=== PATIENT | female | born 1975 ===

== ENCOUNTER → 2022-02-04 13:30 | Outpatient (BNVA) | payer OTHER, SELFPAY | PROVIDERS: PCP Physician Assistant; Referring Provider Physician Assistant; Visit Provider Physician Assistant Surgical | DX: Z13.89 Encounter for screening for other disorder (principal) ==

== ENCOUNTER → 2022-03-03 10:37 | Outpatient (BNVA) | payer OTHER, SELFPAY | PROVIDERS: PCP Physician Assistant; Visit Provider Physician Assistant Surgical | DX: E66.9 Obesity, unspecified (principal); Z68.36 Body mass index [BMI] 36.0-36.9, adult | CPT/HCPCS: 99202 ==

== ENCOUNTER 2022-03-04 10:24 | Outpatient (REF) | payer OTHER, SELFPAY ==
--- NOTE | ~2022-03-04 | XR_ITS ---
EXAMINATION: XR CHEST CLINICAL INFORMATION: Obesity unspecified. COMPARISON: None TECHNIQUE: 2 views of the chest were obtained. FINDINGS: No acute finding in the chest. The lung coleman are grossly clear. Findings may be consistent with a hiatal hernia. Retrocardiac density with some lucency. The cardiac silhouette is not enlarged. The hilar structures show no suspicious increase. XR/XR chest 2V IMPRESSION: No acute finding. Findings do suggest probable hiatal hernia. Consider barium swallow for further evaluation.
--- NOTE | 2022-03-04 10:34 | ECG_ITS ---
Test Reason : OBESITY Blood Pressure : / mmHG Vent. Rate : 061 BPM Atrial Rate : 061 BPM P-R Int : 144 ms QRS Dur : 112 ms QT Int : 440 ms P-R-T Axes : 045 -32 019 degrees QTc Int : 442 ms Normal sinus rhythm Left axis deviation Incomplete right bundle branch block Abnormal ECG No previous ECGs available Referred By: Singh Monroy Electronically Signed By:Efren Humphreys
[2022-03-04 10:51] LABS: MANUAL DIFF FLAG NO
[2022-03-04 12:14] LABS: Basophils Absolute Auto 0.1 X10*3/uL (0.0-0.2); Basophils Percent Auto 0.9 % (0-2); Eosinophils Absolute Auto 0.2 X10*3/uL (0.0-0.4); Hematocrit 40.5 % (37.0-47.0); Hemoglobin 12.9 g/dl (12.0-16.0); Imm Gran Abs Auto 0.05 X10*3/uL (0.00-0.03); Imm Gran Pct Auto 0.6 % (0.0-0.4); Lymphocytes Absolute Auto 2.5 X10*3/uL (1.2-4.9); Lymphocytes Percent Auto 31.3 % (20-40); Mean Corpuscular HGB Conc 31.9 g/dl (31.0-35.0); Mean Corpuscular Hemoglobin 28.5 pg (27.0-33.0); Mean Corpuscular Volume 89.6 fL (80.0-98.0); Mean Platelet Volume 10.2 fL (9.4-12.3); Monocytes Absolute Auto 0.5 X10*3/uL (0.1-1.2); Monocytes Percent Auto 6.8 % (2-11); Neutrophils Absolute Auto 4.6 x10*3/uL (2.0-8.3); Neutrophils Percent Auto 58.4 % (45-73); Platelet Count 294 X10*3/uL (160-400); Red Blood Count 4.52 X10*6/uL (4.20-5.50); Red Cell Distribution Width 13.2 % (11.0-16.0); White Blood Count 7.8 X10*3/uL (4.8-10.8)
[2022-03-04 12:56] LABS: Alanine Aminotransferase 31 U/L (0-31); Albumin Level 4.4 g/dL (3.5-5.0); Alkaline Phosphatase 72 U/L (39-117); Anion Gap 13 (12-20); Aspartate Amino Transferase 26 U/L (5-31); Bilirubin Total 0.4 mg/dL (0.0-1.0); Blood Urea Nitrogen 15 mg/dL (9-16); Calcium 9.3 mg/dL (8.4-10.2); Carbon Dioxide 25 mmol/L (22-29); Chloride 106 mmol/L (96-108); Cholesterol 229 mg/dL; Estimated Glomerular Filt Rate > 60; Glucose Random 90 mg/dL (60-115); HDL Cholesterol 51 mg/dL; Iron 56 mcg/dL (30-160); LDL Cholesterol Calculated 147 mg/dl; Percent Iron Saturation 15 % (15-50); Potassium 4.1 mmol/L (3.3-5.1); Sodium 140 mmol/L (135-145); Total Iron Binding Capacity 379 mcg/dL (228-428); Total Protein 7.5 g/dL (6.5-8.0); Triglycerides 155 mg/dL; Unsaturated Iron Binding 323 ug/dL
[2022-03-04 13:28] LABS: Ferritin 30 ng/mL (10-250); TSH reflex Free T4 0.76 uIU/mL (0.32-4.0); Vitamin D 25-OH Total 29.7 ng/mL (>30)
[2022-03-04 13:54] LABS: Folate > 20.0 ng/mL (> or = 4.0); Vitamin B12 1276 pg/mL (200-900)
[2022-03-04 14:03] LABS: Estimated Average Glucose 126 mg/dL; Insulin 7 uU/mL (2-29)
[2022-03-05 15:02] LABS: Calcium (PTHI) 9.6 mg/dL (8.6-10.2); PTHI 96 pg/mL (16-77)
[2022-03-08 11:02] LABS: Vitamin B1 19 nmol/L (8-30)
[2022-03-08 18:11] LABS: Vitamin A 51 mcg/dL (38-98)
[2022-03-10 15:51] LABS: Zinc 78 mcg/dL (60-130)
== END 2022-03-04 10:25 | disposition home or self-care (01) ==
LOC: HO.LAB 10:24
PROVIDERS: PCP Physician Assistant; Visit Provider Physician Assistant Surgical
DX: Z01.818 Encounter for other preprocedural examination (principal); E66.9 Obesity, unspecified
CPT/HCPCS: 36415; 71046; 80053; 80061; 82306; 82607; 82728; 82746; 83036; 83525; 83540; 83970; 84425; 84443; 84590; 84630; 85025; 86140; 93005

== ENCOUNTER → 2022-03-16 10:53 | Outpatient (BNVA) | payer OTHER, SELFPAY | PROVIDERS: PCP Physician Assistant; Visit Provider Physician Assistant Surgical | DX: E66.9 Obesity, unspecified (principal); Z68.34 Body mass index [BMI] 34.0-34.9, adult | CPT/HCPCS: 99212 ==

== ENCOUNTER → 2022-03-23 11:04 | Outpatient (BNVA) | payer OTHER, SELFPAY | PROVIDERS: PCP Physician Assistant; Visit Provider Dietitian, Registered | DX: E66.9 Obesity, unspecified (principal); Z71.3 Dietary counseling and surveillance | CPT/HCPCS: 97802 ==

== ENCOUNTER → 2022-03-25 09:15 | Outpatient (BNVA) | payer OTHER, SELFPAY | PROVIDERS: PCP Physician Assistant; Visit Provider Physician Assistant Surgical | DX: Z11.0 Encounter for screening for intestinal infectious diseases (principal) | CPT/HCPCS: 99211 ==

== ENCOUNTER → 2022-03-25 14:44 | Outpatient (REF) | payer OTHER, SELFPAY ==
--- NOTE | 2022-03-25 14:55 | CA_ITS ---
Transthoracic Echocardiogram Patient (Last, First, Middle): Román Mackey M Gender: Female Date of : 1975 Age: 46 Procedure Date: 03/25/2022 Procedure Type: Transthoracic Echocardiogram Location: OP Height: 157.48 cm Weight: 85.73 kg BSA: 1.87 m2 Heart Rate: bpm BP: 130 / 70 mmHg Financial Accountant: GINGER Domingo MD: Singh BENEDICT Refrigeration Plant Operator: Shilo Wolf MD Symptoms: I45.10 - Unspecified right bundle-branch block Study Quality: Adequate ECG Rhythm: Sinus Conclusions: - Essentially normal study Findings Left Ventricle Normal left ventricular size, thickness, and systolic function. The visually estimated ejection fraction is between 60-65%. Spectral Doppler is indicative of a normal filling pattern. Right Ventricle Normal right ventricular cavity size and systolic function. Atria Both atria are normal in size. There is lipomatous hypertrophy of the interatrial septum. There is no evidence of interatrial shunt. Aortic Valve The aortic valve structure and function is likely normal. There is no aortic valve stenosis. There is no aortic valve regurgitation. Mitral Valve Normal mitral valve structure and function. There is trace mitral valve regurgitation. There is no mitral valve stenosis. Pulmonic Valve The pulmonic valve was not well visualized. Tricuspid Valve Likely normal tricuspid valve structure and function. There is trace tricuspid valve regurgitation. The right ventricular systolic pressure is normal. The right ventricular systolic pressure is 21 mmHg. Normal right atrial pressure. There is no evidence of pulmonary hypertension. Great Vessels All visible segments of the aorta are normal in size. The pulmonary artery was not well visualized. Venous The inferior vena cava is normal in size and collapses greater than 50% with inspiration. Pericardium/Pleural There is no evidence of pericardial effusion. Prior Study Comparison No prior study available for comparison. Measurements 2D Linear Measurements IVSd: 0.92 0.6-0.9/0.6-1.0 cm LVIDd: 4.23 3.9-5.3/4.2-5.9 cm LVIDd Index: 2.26 2.4-3.2/2.2-3.1 cm/m2 LVIDs: 1.99 2.0-3.6 cm LVPWd: 0.87 0.7-1.1 cm LA Diam: 2.70 2.7-3.8/3.0-4.0 cm LAIDs Index: 1.44 1.5-2.3 cm/m2 LV Mass: 148.41 67-162/88-224 g LV Mass Index: 79.36 43-95/49-115 g/m2 LVOT Diam: 2.00 3.0+(-)1.3 cm 2D Systolic Function EF 4C: 61.20 >55% EF 2C: 54.80 >55% EF BiP: 58.10 >55% Mitral Valve MV Pk E: 0.86 MV PK A: 0.73 MV Decel Time: 261.00 E/A: 1.20 E'Lateral: 10.70 E'Medial: 7.07 E/E' Med: 12.20 E/E' Lat: 8.00 PHT: 77.00 MVA PHT: 2.86 Decel Carbon: 3.29 Aortic Valve AoV Pk Javad: 1.28 AoV Mn Javad: 0.89 AoV VTI: 0.32 AoV Pk Grad: 7.00 Aov Mn Grad: 4.00 SESAR Cont.VTI: 2.19 LVOT LVOT Pk Javad: 0.88 LVOT Mn Javad: 0.62 LVOT VTI: 0.22 LVOT Pk Grad: 3.00 LVOT Mn Grad: 2.00 LVOT Diam: 2.00 LVOT Area: 3.14 Diastolic Function MV Pk E: 0.86 MV Pk A: 0.73 E/A: 1.20 E'Medial: 7.07 E/E' Med: 12.20 E' Laterial: 10.70 E/E' Lat: 8.00 Right Ventricle TAPSE (mm): 16.30 TVS' Javad: 9.90 Tricuspid Valve TR Pk Javad: 2.13 TR Pk Grad: 18.00 RA Press: 3.00 RVSP: 21.00 Great Vessels Aorta Sinus of Valsalva: 3.22 2.0-3.[address] Ridge: 2.74 1.7-3.4 cm Ao Asc: 3.10 2.1-3.4 cm Ao Arch: 2.90 Updated in Other Vendor System with Status of Final Shilo Wolf MD electronically signed on 03/25/2022 4:57:28 PM with status of Final
[2022-03-27 15:29] LABS: H Pylori Breath Test Negative (Negative)
== END ==
LOC: HO.CARD 14:44
PROVIDERS: Physician Assistant Surgical; Visit Provider Surgery
DX: E66.9 Obesity, unspecified (principal); I45.10 Unspecified right bundle-branch block; Z11.0 Encounter for screening for intestinal infectious diseases
CPT/HCPCS: 36415; 83013; 93306

== ENCOUNTER → 2022-04-03 08:19 | Outpatient (REF) | payer OTHER, SELFPAY ==
--- NOTE | ~2022-04-03 | NM_ITS ---
Exercise Myocardial perfusion study Indication: Abnormal EKG to evaluate for myocardial ischemia Technique: The patient was brought in for an exercise perfusion study on 04/03/2022. Patient performed exercise as per Miguel protocol and was injected 30 mCi of sestamibi was given intravenously one target HR was achieved. Images were obtained using the SPECT gamma camera interlaced with the gating device. Images were obtained in supine position. Resting perfusion study was performed on 04/07/2022.. Patient was administered 30 mCi of sestamibi intravenously at rest. Images were then obtained in supine position. Images obtained with and without CT attenuation. Total DLP 98 mGy-cm. Images were processed with the software and compared side to side in short axis, horizontal long axis and vertical long axis views. Findings: The stress perfusion study showed non attenuated images show normal uptake of radiotracer in all segments of LV myocardium. Attenuation corrected images show minimally reduced uptake in the apex of the LV myocardium.. The gated study shows normal LV systolic function with calculated LVEF of 71%. LV cavity is normal in size. The gated study shows normal systolic wall thickening and contraction of all segments. There is no transient ischemic dilation. Resting study shows non attenuated images show normal uptake of radiotracer in all segments of LV myocardium. Gating at rest reveals normal systolic wall motion with ejection fraction at 59%. The findings are consistent with normal myocardial perfusion. NM/NM cardiolite stress test Impression: 1. Normal myocardial perfusion 2. Gated LVEF is 71% 3. Transient ischemic dilatation not present Stress EKG is negative for ischemia
--- NOTE | 2022-04-03 08:24 | CA_ITS ---
Acquisition Time: 2022-04-03 08:40:11 Total Exercise Time: 00:06:16 Test Indications: Abnormal ECG Medications: OMEPRAZOLE Protocol: JUDIE Max HR: 157 BPM 91% of Pred: 172 BPM Max BP: 142/086 mmHG Max Work Load: 7.3 METS Exercise stress test with exercise 6 min 16 sec of Judie protocol, achieving 935 MPHR, 7.3 METs, with mild sob, no chest discomfort, with isolated PACs and PVCs, with normotensive response to exercise, without EKG chagnes meeting criteria for ischemia. Nuclear images pending Test reviewed with Dr Wolf Referred By: Singh Monroy Overread By: MICHELET REEDER
== END ==
LOC: HO.CARD 08:19
PROVIDERS: PCP Physician Assistant; Visit Provider Surgery
DX: Z01.818 Encounter for other preprocedural examination (principal); I45.10 Unspecified right bundle-branch block; R06.02 Shortness of breath; R94.31 Abnormal electrocardiogram [ECG] [EKG]
CPT/HCPCS: 78452; 93017; A9500

== ENCOUNTER → 2022-04-07 13:58 | Outpatient (BNVA) | payer OTHER, SELFPAY | PROVIDERS: PCP Physician Assistant; Referring Provider Physician Assistant Surgical; Visit Provider Dietitian, Registered | DX: E66.9 Obesity, unspecified (principal) | CPT/HCPCS: 97803 ==

== ENCOUNTER 2022-04-20 08:36 | Outpatient (REF) | payer OTHER, SELFPAY ==
--- NOTE | ~2022-04-20 | FL_ITS ---
EXAMINATION: XR FLUOROSCOPY UPPER GI WITH AIR CLINICAL INFORMATION: Obesity. COMPARISON: None TECHNIQUE: Upper GI was performed using thin and thick barium and effervescent granules. FINDINGS: There is a moderate size hiatal hernia. There is mild gastroesophageal reflux. The stomach and duodenum are otherwise normal-appearing. No fold thickening, mass, ulcer or stricture is seen. FLUOROSCOPY TIME: 0.8 minutes DOSE AREA PRODUCT: 9.2 uGy-cm2 FLUOROSCOPIC IMAGES: 25 FL/FL upper GI w air IMPRESSION: Moderate size hiatal hernia and mild gastroesophageal reflux.
--- NOTE | ~2022-04-20 | US_ITS ---
EXAMINATION: US COMPLETE ABDOMEN WITH LIVER ELASTOGRAPHY CLINICAL INFORMATION: Obesity COMPARISON: None. TECHNIQUE: Real-time imaging of the abdominal viscera. Noninvasive ultrasound liver fibrosis assessment is performed using Kiki ElastPQ point quantification shear wave elastography (2D-SWE) with a C5-2 MHz transducer. Multiple elastography samples are obtained. FINDINGS: PANCREAS: Not well visualized due to bowel gas ABDOMINAL AORTA: The proximal, middle, and distal aortic segments are normal in caliber. INFERIOR VENA CAVA: Visualized portions are normal. LIVER: Liver echotexture is increased. The liver is normal in size and contour.. No focal lesion or intrahepatic biliary duct dilatation. The right lobe measures 16.4 cm in length. The left lobe measures 14.2 cm in length. Portal flow is normal/hepatopedal Shear wave liver elastography median stiffness is 1.09 m/s (reference: normal median stiffness is 1.3 m/s or less). IQR/median stiffness to assess sampling precision is 0.06 (reference: good quality data set is IQR/median stiffness of 0.15 or less). GALLBLADDER: Surgically removed COMMON BILE DUCT: Normal in caliber measuring 0.9 cm in diameter. RIGHT KIDNEY: Normal. No hydronephrosis. No renal calculi or focal parenchymal lesions. The kidney measures 11.3 cm in maximum dimension. LEFT KIDNEY: Normal. No hydronephrosis. No renal calculi or focal parenchymal lesions. The kidney measures 12.8 cm in maximum dimension. SPLEEN: Normal. The spleen measures 10 cm in maximum dimension. FREE FLUID: None. US/US abdomen comp w elastography IMPRESSION: 1. Impression: Echogenic liver probably representing fatty infiltration. Limited visualization of the pancreas. 2. Liver elastography: Adequate liver sampling. Normal liver stiffness. REFERENCE: Society of Radiologists in Ultrasound Liver Stiffness Thresholds (2020): LIVER STIFFNESS THRESHOLDS: *Liver Stiffness equal or less than 1.3 m/s: High probability of being normal. *Liver Stiffness less than 1.7 m/s: In the absence of other known clinical signs, rules out compensated advanced chronic liver disease. *Liver Stiffness 1.7-2.1 m/s: Suggestive of compensated advanced chronic liver disease but need further test for confirmation. *Liver Stiffness over 2.1 m/s: Rules in compensated advanced chronic liver disease. *Liver Stiffness over 2.4 m/s: Suggestive of clinically significant portal hypertension. QUALITY OF DATA SET: *IQR/Median value equal or less than 0.15 implies a quality data set. *IQR/Median value over 0.15 implies a poor quality data set. SIGNIFICANT CHANGE FROM PRIOR EXAM: Significant change if liver stiffness measurement is 10% or greater from prior exam. OTHER CONSIDERATIONS: The stage of liver fibrosis may be overestimated in the setting of acute hepatitis, liver inflammation, elevated liver function tests, hepatic vascular congestion, obstructive cholestasis, non-fasting state, and infiltrative diseases such as amyloidosis and lymphoma. In some patients with NAFLD, the liver stiffness thresholds for compensated advanced chronic liver disease may be lower. In causes other than viral hepatitis and NAFLD, liver stiffness thresholds are not well established.
== END 2022-04-20 08:37 | disposition home or self-care (01) ==
LOC: HO.US 08:36
PROVIDERS: Visit Provider Physician Assistant Surgical
DX: Z01.818 Encounter for other preprocedural examination (principal); E66.9 Obesity, unspecified; K21.9 Gastro-esophageal reflux disease without esophagitis
CPT/HCPCS: 74246; 76705; 76981

== ENCOUNTER 2022-04-21 09:42 | Outpatient (REF) | payer OTHER, SELFPAY | END 2022-04-21 09:43 | disposition home or self-care (01) | LOC: HO.LAB 09:42 | PROVIDERS: Visit Provider Surgery | DX: E11.9 Type 2 diabetes mellitus without complications (principal); E66.9 Obesity, unspecified; G47.33 Obstructive sleep apnea (adult) (pediatric); I45.10 Unspecified right bundle-branch block; E78.5 Hyperlipidemia, unspecified; Z68.34 Body mass index [BMI] 34.0-34.9, adult; Z90.49 Acquired absence of other specified parts of digestive tract; Z99.89 Dependence on other enabling machines and devices | CPT/HCPCS: 86900; 86901; 99202 ==

== ENCOUNTER → 2022-04-28 08:44 | Outpatient (BNVA) | payer OTHER, SELFPAY | PROVIDERS: PCP Physician Assistant; Visit Provider Surgery | DX: E66.9 Obesity, unspecified (principal); Z68.34 Body mass index [BMI] 34.0-34.9, adult; E11.9 Type 2 diabetes mellitus without complications; K44.9 Diaphragmatic hernia without obstruction or gangrene; K21.9 Gastro-esophageal reflux disease without esophagitis; E78.5 Hyperlipidemia, unspecified; I45.10 Unspecified right bundle-branch block; G47.33 Obstructive sleep apnea (adult) (pediatric); Z99.89 Dependence on other enabling machines and devices | CPT/HCPCS: 99212 ==

== ENCOUNTER → 2022-05-04 14:04 | Outpatient (BNVA) | payer OTHER, SELFPAY | PROVIDERS: PCP Physician Assistant; Referring Provider Surgery; Visit Provider Dietitian, Registered | DX: E66.9 Obesity, unspecified (principal); Z68.34 Body mass index [BMI] 34.0-34.9, adult; Z71.3 Dietary counseling and surveillance | CPT/HCPCS: 97803 ==

== ENCOUNTER 2022-05-19 09:44 | Outpatient (REF) | payer OTHER, SELFPAY | END 2022-05-19 09:45 | disposition home or self-care (01) | LOC: HO.LAB 09:44 | PROVIDERS: Visit Provider Surgery | DX: Z13.89 Encounter for screening for other disorder (principal) ==

== ENCOUNTER 2022-05-26 06:00 | Inpatient (IN) | payer OTHER, SELFPAY ==
[2022-05-11 14:25] VITALS: BMI 34.0
[2022-05-19 10:03] LABS: MANUAL DIFF FLAG NO
[2022-05-19 10:48] LABS: Estimated Average Glucose 117 mg/dL; Hemoglobin A1c % 5.7 %
[2022-05-19 10:49] LABS: Basophils Absolute Auto 0.1 X10*3/uL (0.0-0.2); Basophils Percent Auto 0.7 % (0-2); Eosinophils Absolute Auto 0.1 X10*3/uL (0.0-0.4); Eosinophils Percent Auto 1.6 % (0-4); Hematocrit 40.6 % (37.0-47.0); Hemoglobin 12.9 g/dl (12.0-16.0); Imm Gran Abs Auto 0.04 X10*3/uL (0.00-0.03); Imm Gran Pct Auto 0.5 % (0.0-0.4); Lymphocytes Absolute Auto 2.1 X10*3/uL (1.2-4.9); Lymphocytes Percent Auto 26.3 % (20-40); Mean Corpuscular HGB Conc 31.8 g/dl (31.0-35.0); Mean Corpuscular Hemoglobin 27.9 pg (27.0-33.0); Mean Corpuscular Volume 87.7 fL (80.0-98.0); Mean Platelet Volume 9.9 fL (9.4-12.3); Monocytes Absolute Auto 0.6 X10*3/uL (0.1-1.2); Neutrophils Absolute Auto 5.2 x10*3/uL (2.0-8.3); Neutrophils Percent Auto 63.9 % (45-73); Platelet Count 336 X10*3/uL (160-400); Red Blood Count 4.63 X10*6/uL (4.20-5.50); Red Cell Distribution Width 13.4 % (11.0-16.0); White Blood Count 8.1 X10*3/uL (4.8-10.8)
[2022-05-19 10:55] LABS: Prothrombin Time 11.8 SEC (10.0-13.1)
[2022-05-19 10:57] LABS: Partial Thromboplastin Time 39.6 SEC (26.0-36.4)
[2022-05-19 11:21] LABS: Alanine Aminotransferase 18 U/L (0-31); Albumin Level 4.5 g/dL (3.5-5.0); Alkaline Phosphatase 76 U/L (39-117); Anion Gap 18 (12-20); Aspartate Amino Transferase 17 U/L (5-31); Bilirubin Total 0.3 mg/dL (0.0-1.0); Blood Urea Nitrogen 10 mg/dL (9-16); C Reactive Protein 7.65 mg/dL (< or = 0.50); Calcium 9.6 mg/dL (8.4-10.2); Carbon Dioxide 25 mmol/L (22-29); Chloride 104 mmol/L (96-108); Cholesterol 177 mg/dL; Creatinine Clr Calc Pharmacy 92.4; Estimated Glomerular Filt Rate > 60; Glucose Random 107 mg/dL (60-115); HDL Cholesterol 40 mg/dL; LDL Cholesterol Calculated 116 mg/dl; Potassium 4.8 mmol/L (3.3-5.1); Sodium 142 mmol/L (135-145); Total Protein 7.8 g/dL (6.5-8.0); Triglycerides 108 mg/dL
[2022-05-19 11:46] LABS: Insulin 13 uU/mL (2-29); TSH reflex Free T4 0.58 uIU/mL (0.32-4.0)
--- NOTE | 2022-05-25 09:40 | P.CONAN_ITS ---
Documented by User: Mirela Alberto NP 05/25/22 09:42 HPI - Anesthesia Eval Consult details Narrative: 46yo F for Gastrectomy Sleeve, Possible diaphragmatic hernia,possible ventral hernia,possible open PMFSH Active Problems Active Problems: All Active Problems (Updated 05/11/22 @ 14:22 by Ayah Gibbons, RN) Diabetes (Acute) Obesity (BMI 30-39.9) (Acute) Fibromyalgia (Acute) Incomplete right bundle branch block (Acute) BMI 36.0-36.9,adult (Acute) GERD (gastroesophageal reflux disease) (Acute) Prediabetes (Acute) Hyperlipidemia (Acute) Obstructive sleep apnea on CPAP (Acute) Hiatal hernia (Acute) Past Medical History Medical History (Updated 05/11/22 @ 14:22 by Ayah Gibbons RN) DM type 2 (diabetes mellitus, type 2) Fibromyalgia ULICES on CPAP Family History Family History Mother Breast cancer Father Arthritis Diabetes Daughter Obese Scoliosis Surgical History Surgical History Hx of cholecystectomy Social History Social History Are you a primary health care facility administrator to a significant other at home: No Do you presently have visiting nurse or other home services: No Alcohol intake: former Patient Tobacco Use Status: Former Tobacco user Quit Date: 6 months ago Tobacco use type: Cigarette Second Hand Smoke Exposure: Yes Use of substances other than those prescribed or required for medical reasons: No Have you been hit, kicked, punched, or otherwise hurt by someone within the past year? If so, by whom?: No Are you DNR?: No Advance Directives: No Advance Directives Information Provided: No Advance Directives on File: No Recently lost weight without trying: No How much weight loss: 14-23 pounds Nutrition Risks: No Nutritional Risk Patient : No FDLMP: 04/14/22 : No Poor oral hygiene: No (crowns) Meds Allergies Allergy/AdvReac Type Severity Reaction Status Date / Time No Known Allergies Allergy Unverified 04/28/22 08:57 Home Medications Medication Instructions Recorded Confirmed Last Taken Type multivitamin with minerals-folic 1 tab PO DAILY 02/05/22 05/11/22 05/25/22 History acid 0.4 mg tablet Exam Exam Date and Time: May 25, 2022 0940 Height,Weight and Vital Signs: Height 5 ft 2 in Weight 84.368 kg Pertinent Lab Results Pertinent Lab Results: Laboratory Tests 05/19/22 05/19/22 05/19/22 10:00 10:01 10:01 WBC 8.1 RBC 4.63 Hgb 12.9 Hct 40.6 MCV 87.7 MCH 27.9 MCHC 31.8 RDW 13.4 Plt Count 336 MPV 9.9 Immature Gran % (Auto) 0.5 H Neut % (Auto) 63.9 Lymph % (Auto) 26.3 [place] % (Auto) 7.0 Eos % (Auto) 1.6 Baso % (Auto) 0.7 Lymph # (Auto) 2.1 [place] # (Auto) 0.6 Eos # (Auto) 0.1 Baso # (Auto) 0.1 Abs Immat Gran (auto) 0.04 H Absolute Neuts (auto) 5.2 Absolute Nucleated RBC 0.000 Nucleated RBC % (auto) 0.0 PT 11.8 INR 1.0 APTT 39.6 H Sodium Potassium Chloride Carbon Dioxide Anion Gap BUN Creatinine Estim Creat Clear Calc Estimated GFR Random Glucose Estimat Average Glucose Hemoglobin A1c % Insulin Level Calcium Total Bilirubin AST ALT Alkaline Phosphatase C-Reactive Protein Total Protein Albumin Triglycerides Cholesterol LDL Cholesterol, Calc HDL Cholesterol TSH Blood Type A Negative Antibody Screen NEGATIVE 05/19/22 05/19/22 10:01 10:01 WBC RBC Hgb Hct MCV MCH MCHC RDW Plt Count MPV Immature Gran % (Auto) Neut % (Auto) Lymph % (Auto) [place] % (Auto) Eos % (Auto) Baso % (Auto) Lymph # (Auto) [place] # (Auto) Eos # (Auto) Baso # (Auto) Abs Immat Gran (auto) Absolute Neuts (auto) Absolute Nucleated RBC Nucleated RBC % (auto) PT INR APTT Sodium 142 Potassium 4.8 Chloride 104 Carbon Dioxide 25 Anion Gap 18 BUN 10 Creatinine 0.75 Estim Creat Clear Calc 92.4 Estimated GFR > 60 Random Glucose 107 Estimat Average Glucose 117 Hemoglobin A1c % 5.7 Insulin Level 13 Calcium 9.6 Total Bilirubin 0.3 AST 17 ALT 18 Alkaline Phosphatase 76 C-Reactive Protein 7.65 H Total Protein 7.8 Albumin 4.5 Triglycerides 108 Cholesterol 177 D LDL Cholesterol, Calc 116 HDL Cholesterol 40 D TSH 0.58 Blood Type Antibody Screen Narrative Narrative: EKG 02/2022 Vent. Rate : 061 BPM ? ? Atrial Rate : 061 BPM ?? P-R Int : 144 ms? QRS Dur : 112 ms ? ? QT Int : 440 ms ? ? ? P-R-T Axes : 045 -32 019 degrees ?? QTc Int : 442 ms ? Normal sinus rhythm Left axis deviation Incomplete right bundle branch block Abnormal ECG No previous ECGs available ECHO 03/2022 Conclusions: - Essentially normal study? NM cardiolite stress test 03/2022 Impression: ? 1.? Normal myocardial perfusion 2.? Gated LVEF is 71% 3. Transient ischemic dilatation not present ? Stress EKG is negative for ischemia Assessment and Plan Assessment Anesthesia Assessment: Chart Reviewed Documented by User: Tequila Cabrera MD 05/26/22 07:00 [facility] Past Medical History Medical History (Updated 05/11/22 @ 14:22 by Ayah Gibbons RN) DM type 2 (diabetes mellitus, type 2) Fibromyalgia ULICES on CPAP Family History Family History Mother Breast cancer Father Arthritis Diabetes Daughter Obese Scoliosis Family history of problems with anesthesia: No Surgical History Surgical History Hx of cholecystectomy History of Problems with Anesthesia: No Social History Social History Are you a primary health care facility administrator to a significant other at home: No Do you presently have visiting nurse or other home services: No Alcohol intake: former Patient Tobacco Use Status: Former Tobacco user Quit Date: 6 months ago Tobacco use type: Cigarette Second Hand Smoke Exposure: Yes Use of substances other than those prescribed or required for medical reasons: No Have you been hit, kicked, punched, or otherwise hurt by someone within the past year? If so, by whom?: No Are you DNR?: No Advance Directives: No Advance Directives Information Provided: No Advance Directives on File: No Recently lost weight without trying: No How much weight loss: 14-23 pounds Nutrition Risks: No Nutritional Risk Patient : No FDLMP: 04/14/22 : No Poor oral hygiene: No (crowns) Meds Allergies Allergy/AdvReac Type Severity Reaction Status Date / Time No Known Allergies Allergy Unverified 04/28/22 08:57 Home Medications Medication Instructions Recorded Confirmed Last Taken Type multivitamin with minerals-folic 1 tab PO DAILY 02/05/22 05/11/22 05/25/22 Hist ory acid 0.4 mg tablet Exam Airway Mallampati Class: II TM Dist: >3cm Neck ROM: Full Assessment and Plan Assessment Anesthesia Assessment: Anesthesia Plan Discussed Final Anesthetic Review Family History of Problems with Anesthesia: No History of Problems with Anesthesia: No NPO: Yes ASA Class: III Final Preanesthetic Review: No Changes in Pt Med Stat, Meds/Allgs Chart Reviewed, Consent Obtained/Reviewed and Anes Risks/Benef Reviewed Patient Risk: Intermediate Procedure Risk: Intermediate Anesthetic Plan Anesthetic Plan: GA Disposition: Standard PACU
[2022-05-25 13:53] LABS: COVID-19 Test Negative (Negative)
[2022-05-26] VITALS (13 sets, daily range): BP systolic 103–156; BP diastolic 60–91; PULSE 68–98; RESP 16–20; TEMP 35.6–37.2; O2SAT 91–100
[2022-05-26 06:20] LABS: UPreg QC Valid YES; Urine Pregnancy NEGATIVE (NEGATIVE)
[2022-05-26] MEDS: Lactated Ringers 1,000 ML 150 ML IVCONT (06:37)
[2022-05-26] MEDS: Scopolamine 1.5 MG PATCH.TD.3 TRANSDERMA (06:43)
[2022-05-26] MEDS: Heparin Sodium,Porcine 5,000 UNIT/ML VIAL 5000 UNIT SUBCUT (06:43)
--- NOTE | 2022-05-26 06:55 | P.OP_ITS ---
Operative Note Operative Note Date of Service: 05/26/22 Narrative: Preop diagnosis: [Obesity, hiatal hernia, lipid d/o pre-DM, ULICES] Postop diagnosis: [same] Procedure: [hiatal hernia repair, laparoscopic sleeve gastrectomy, lysis of adhesions, Esophagogastroscopy & gastropexy] Surgeon: Supa Mejia MD Assist: [Singh Mornoy PA-C] Anesthesia: [GET; local bupivicaine 0.5%] Estimated blood loss: [3cc] Specimen: [portion of stomach with fundus] Intraoperative findings: [Moderate hiatal hernia was present. Lysis of adhesion in the upper abdomen above the umbilicus was required due to adhesions. Otherwise, grossly normal pathology] Indications: [The patient is a 46-year-old woman with a lifelong struggle with obesity and prediabetes, obstructive sleep apnea, lipid disorder who presented with a BMI of 36.6 and was interested and bariatric surgery. After reviewing th e options, the patient wanted to proceed with a sleeve gastrectomy.]I reviewed the inherent risks of this procedure which include, but are not limited to: Bleeding that could require another operation or blood transfusion; the inherent risks of transfusion reaction infectious disease from blood transfusions; the risk of staple line leaks that could cause sepsis, multi-system organ failure and ; the risk of mesenteric or deep vein thrombosis of the lower extremities that could cause a fatal pulmonary embolism was reviewed; the risk of GERD that could require conversion to gastric bypass was discussed; the risk of recurrent hiatal hernia, especially in the setting of weight regain was reviewed. The risk of weight regain if maladaptive eating and sedentary behavior continue was discussed. The importance of proper diet and increased activity to augment surgical weight loss and the fact that no operation would result in weight loss of poor dietary decisions and sedentary behavior are resumed were discussed at length and apparently understood. The patient had the option of having a coordinator of health services present and declined this option. The option of returning her care to Dr. Nash was also reviewed and client. Procedure: The patient was identified in the preoperative holding area by myself and again in the operating suite by myself and the team. Patient was placed supine on the operating table. Safety straps were utilized and a footboard utilized. The patient was induced in general endotracheal anesthesia administered with excellent effect. An appropriate time-out was performed. The patient's abdomen was then widely prepped and draped in the usual manner for surgery using chlorhexidine. Antibiotics per protocol were administered by Anesthesia. After infiltrating preemptive local in the skin and subcutaneous tissues in the epigastrium approximately 10cm from the xiphoid and the midline of the epigastrium, a stab incision was made sharply and the Veress needle inserted but an appropriate drop test could not be performed. Subsequently, a stab incision was made in the left upper quadrant and the Veress needle placed without incident, on appropriate drop test performed and a pneumoperitoneum of 15 mmHg was obtained using carbon dioxide. Opening pressures were 6-7mmmm Hg. Next, a 5 mm 45 degree scope over a 5 mm Optiview trocar was used to access the abdomen in the supraumbilical location in the midline. Upon entering, the obturator was removed and the abdomen explored, which demonstrated extensive adhesion in the area of the original Veress needle placement in the epigastric midline. Since the left upper quadrant was clear, additional 5 mm trocars were placed using preemptive local analgesia to facilitate a lysis of adhesion. There was no evidence of injury from the Veress needle in it was removed. The bowel and deep structures were examined for injury from the trocar and none identified. I then examined the area under the omentum to look for evidence of injury from the Veress needle and found none. Next, using preemptive local, additional 5 mm trocars were placed under direct laparoscopic vision and the 5 mm midline trocar upsized to a 12 mm to accommodate the stapler. The patient was then positioned in reverse Trendelenburg and the liver retractor deployed through the right lateral 5 mm trocar and secured. A moderate hiatal hernia was noted. A 40 [place] ViSiGi bougie was inserted by Anesthesia per os and advanced to the stomach to decompress. It was then withdrawn to the GE junction all under direct laparoscopic vision. Dissection was begun along the greater curvature using the 5 mm [place] LigaSure for hemostasis and continued to the left jorge of the diaphragm. Dissection was carried along the left jorge of the diaphragm to the free nausea off a JUAN ALBERTO membrane which was opened. Next, the pars flaccida was opened and the right jorge identified and the hernia sac dissected and reduced. Dissection was carried up into the mediastinum taking care to free the esophagus. The GE junction was then surrounded with a hernia tape an additional dissection to allow the lower esophagus to be mobilized approximately 3 cm into the abdomen was performed. Next, 0 silk sutures were used to perform a posterior crural plasty/hiatal hernia repair. With the [address] [place], 1 additional anterior silk suture was placed. Dissection was then carried towards the pylorus to 3-4 cm from the pylorus and retro gastric adhesions lysed. The gastroesophageal fat pad was carefully mobilized taking care to avoid injury to the esophagus and stomach and dissection carried towards the short gastrics taking care to avoid injury to the spleen and splenic artery. The diaphragmatic hiatus was carefully examined for a hernia. Next, the 40 Fr ViSiGi bougie was advanced by anesthesia under direct vision and laparoscopic guidance and positioned in the antrum using laparoscopic graspers to serve as a guide for a stapled sleeve gastrectomy. Stapling was performed with [employer]-JUAN ALBERTO stapler with a purple 45 and then orange 45 and 60 loads. The bougie served as a guide to maintain the same sleeve caliber to avoid stricture & sleeve istortion. The 10 mm clip qualified craft worker electrician was used to apply additional clips to the staple line. Care was taken to be sure that the sleeve laid flat and was without stricture. Once the sleeve was complete, the portion of stomach was placed in the lower abdomen to be sent for permanent section. The staple line, gastrocolic omentum, spleen and short gastric areas were all inspected for hemostasis which was found to be good. The lavage tube was withdrawn under laparoscopic vision. Next, I broke scrub perform an on-table upper endoscopy to assess the sleeve and the esophagus and stomach. The patient was returned to neutral position and the Olympus 160 gastroscope was advanced taking care to preserve the endotracheal tube. The esophagus was intubated without incident. Minimal air was insufflated and the scope advanced into the newly formed sleeve. The staple line was inspected for hemostasis and the morphology of the sleeve appeared straight with a uniform diameter. Intraoperatively, there was no evidence of staple line leak seen during laparoscopy as air was insufflated via endoscope. The scope was then used to aspirate the air from the sleeve withdrawn and graham eliane. I then rescrubbed to return to the operative field and again inspected the field for hemostasis. The patient was again placed in reverse Trendelenburg. A gastropexy was performed using 2-0 Polysorb suture to secure the sleeve gastrectomy to the gastrocolic omentum. After final assessment for hemostasis, the patient was returned to neutral position, a Shira used to withdraw the stomach which was sent for permanent section. The fascia of the 12 mm midline was closed using an 0 Polysorb on a suture Passer under direct laparoscopic vision. The abdomen was then deflated and all trocars removed. The suture was then tied and the skin closed with 4-0 Monocryl subcuticular sutures. The abdomen was then washed and dried, benzoin and Steri-Strips applied followed by Band-Aids. The patient tolerated the procedure well was then extubated the recover in stable condition. All sponge needle and instrument counts were correct x2.] At the patient's request, I contacted her , Ortiz at [phone] to apprise him a of the operation. His questions seemed to be satisfactorily answered
--- NOTE | 2022-05-26 06:59 | MHC.SHP ---
Pre-Procedural Eval Section A Date of Service: 05/26/22 The patient is an INPATIENT: Yes The History & Physical has been completed within 30 days and I have reviewed it.: Yes Section B Chief Complaint: obesity Allergies: Allergies Allergy/AdvReac Type Severity Reaction Status Date / Time No Known Allergies Allergy Unverified 04/28/22 08:57 Plan I have reviewed the history and physical and performed a pertinent physical examination on my patient. No changes have occurred unless specified.
[2022-05-26] MEDS: ceFAZolin Sodium/Dextrose,Iso 2 GM/50 ML PIGGYBACK IV ×2 (07:50→14:30)
--- NOTE | 2022-05-26 11:40 | P.DS_ITS ---
DS: Providers Provider Date of Service: 05/27/22 Date of admission: 05/26/22 06:00 Primary care physician: Unknown Physician DS: Summary Hospital Course Hospital Course: ADMITTING DIAGNOSIS: obesity, DM ? DISCHARGE DIAGNOSIS: same, s/p laparoscopic sleeve gastrectomy and repair diaphragmatic hernia ? PAST SURGICAL HISTORY: laparoscopic cholecystectomy ? PROCEDURE: upper endoscopy, laparoscopic sleeve gastrectomy and repair of diaphragmatic hernia hernia ? DISCHARGE SUMMARY: ? History of Present Illness: ? The patient is a?46 year-old woman with a BMI of?36.6 kg/m2 and associated co- morbidities as described above. The patient had extensive work-up,lost?13.6 lbs preoperatively and was electively scheduled for laparoscopic, possible open slee ve gastrectomy and gastropexy. Risks and complications of the surgery were discussed with the patient in advance, particularly the possibility of , pulmonary embolism, anastomotic leak, bleeding, bowel injury, GERD, cardiac, renal or pulmonary complications. The patient understood all the risks and was in agreement with the surgical plan. ? Hospital Course: ? The patient underwent an uneventful laparoscopic sleeve gastrectomy with gastropexy and repair of diaphragmatic hernia on the day of admission. Postoperatively, the patient was transferred to the surgical floor. The patient received IV Acetaminophen and IV dilaudid for pain control. Patient was started on bariatric phase 1 diet POD #0. On postoperative day one, the patient was feeling well without nausea, vomiting, fevers, or tachycardia. The patient had some mild incisional pain and the abdomen was soft. ? On the morning of postoperative day one, the patient was continued on 1 ounce of water or ice every half hour. During the day, the patient did fairly well, having some incisional pain, but able to ambulate adequately and to tolerate liquids well. ? Since the patient is doing well, we decided that the patient was ready to be discharged. The patient was given instructions to follow-up with me next week and to call my office for any fever over 101, persistent abdominal pain, nausea, vomiting, GERD, symptoms of DVT such as calf tenderness, or leg swelling, or pulmonary embolism such as chest pain or shortness of breath. The patient was also instructed to drink 40-60 ounces of liquids per day using the 1-ounce cups. The patient had been given prescriptions for Tylenol for pain, Zofran prn for nausea, and pantoprazole and carafate previously. The patient was encouraged to ambulate and use the incentive spirometer. The patient was allowed to shower, but no baths, and encouraged to stay active at home. All of these instructions were given to the patient personally. All questions were answered and the patient understood all instructions, the instructions were also given to the patient in print. Time Spent with Patient Time attestation: Total time spent providing and/or coordinating discharge services: Discharge coordination time: Less than 30 minutes Quality: Safe Use of Opioids Does Pt have an Active Cancer Diagnosis on the Problem List?: No Quality: Stroke Does the patient have a stroke diagnosis?: No Physical Exam Vital Signs: Vital Signs: Last Vital Signs Temp 97 F 05/26/22 06:17 Pulse 71 05/26/22 06:17 Resp 17 05/26/22 06:17 BP 103/74 05/26/22 06:17 Pulse Ox 97 05/26/22 06:17 O2 Del Method 05/26/22 06:17 BMI result Body Mass Index 34.0 DS: Data Data Completed and Pending Pending studies at discharge: Pending at discharge 05/26/22 10:57 Surgical [PTH] Routine Labs on day of discharge: Laboratory Results - last 24 hr 05/25/22 05/26/22 13:28 06:10 Urine Test NEGATIVE COVID-19 ([facility]) Negative COVID-19 Clin Com See Note Discharge Plan Discharge Patient Disposition: Home, Self-Care Discharge Diagnosis: s/p laparoscopic sleeve gastrectomy and repair of diaphragmatic hernia Referrals: Physician,Unknown J [Primary Care Provider] - 1 Week Discharge Medications: Continued acetaminophen 500 mg/15 mL liquid 500 mg PO Q6H Qty: 237 2RF sucralfate [Carafate] 100 mg/mL suspension 10 ml PO BID ondansetron HCl 4 mg tablet 1 tab PO Q6-8H PRN (Reason: nausea/vomiting) pantoprazole 40 mg tablet,delayed release (DR/EC) 1 tab PO DAILY Discontinued multivit with min-folic acid 0.4 mg tablet 1 tab PO DAILY Discharge Orders: Discharge Order (Routine); Ordered 05/27/22 Ordered By: Supa Mejia Diet: Bariatric Phase 2 Activity on Discharge: No heavy lifting Stand Alone Forms: Patient Portal Discharge page Care Plan Goals: weight loss Health Concerns: obesity Plan of Treatment: No tub baths, sex or returning to work until discussed at first post op appointment. No exercise, alcohol, tobacco or illegal drug use. Continue to use incentive spirometer hourly while awake. Walk in home for 5- 10 minutes every 2 hours during the first week. Follow all instructions in the bariatric handbook and call with any questions.Discharge Instructions 1. Please call your doctor or come back to the emergency room should any new symptoms arise. 2. You will receive a courtesy call from [facility] 24-48 hours after discharge. 3. Activity: abstain from alcohol, practice limited stair climbing, no bending, no driving, no exercise, no illicit substances, no lifting, no sex, no tub bath, no work. 4. Diet: continue as discussed with Dr. Mejia and bariatric team. 5. Dressing Change/Wound Care: Your incision is covered by clear bandages and guaze underneath. If the area is tender, you may apply an ice pack for short intervals (no more than 20 minutes on, followed by at least 20 minutes off). Do not apply heat. Do not use creams, lotions, or topical antibiotics unless instructed to do so by your surgeon. These can cause infection or allergic reaction. 6. Call your doctor if: - Your temperature exceeds 101.5 F - You experience excessive pain or swelling - You have an unexpected reaction to medication - You have excessive bleeding - You experience continued vomiting/nausea - Your incision begins to separate - Your incision shows signs of infection such as increased redness, swelling, excessive pain, heat, or drainage (light blood or clear fluid is normal) 7. General instructions: No lifting greater than 5 lbs for the next 4 weeks. No driving within 24 hours of taking narcotic pain medications. If you do not move your bowels in the next 2 days, please take milk of magnesia over the counter. Please follow the post op diet and do not advance your diet until you are seen in the office in about 2 weeks. Please walk around your home every hour or two to prevent blood clots from forming in your legs. You do not need to wake from sleeping to walk. Please sleep in a bed or couch to prevent kinking at the hips and knees. Please take your incentive spirometer (your lung supervising deputy) home with you and use it for the next few days to prevent pneumonias. You may shower, no hot tubs, baths or swimming pools. Please call the office with any questions or concerns such as increasing abdominal pain, fever, chills, shortness of breath, chest pain, leg pain or swelling, or redness or drainage from your incisions. Please stay on stage 3 diet which includes sugar free clear liquids such as ice pops crystal light. Avoid all carbonation. Please drink 3 protein shakes with at least 25-30 grams of protein daily or 3 of the Celebrate 4:1 shakes which can be purchased in our office. The Celebrate shakes have all of the bariatric vitamins you need if you consume these shakes. If you are drinking other protein shakes, you will need to purchase the Celebrate multivitamins and calcium that we provide in the office (they will provide all the vitamins you need). Please make sure you are consuming at least 40-60 ounces of water in addition to your 3 protein shakes daily. Do not hesitate to contact the office with any questions at . The patient's medical history has been reviewed and they are considered low risk for post op DVT and therefore DVT prophylaxis is not considered necessary. Travel after surgery was reviewed. The patient has not disclosed any travel plans during the first 30 days after surgery and they have been advised that within the first 30 days after surgery any bus, plane, train or car travel over 2 hours in duration is contraindicated due to the possibility of developing blood clots from immobility. Any travel, needs to include periods of ambulation of 10 minutes in duration every 2 hours.? The patient was instructed to discuss any plans for travel during this period with their bariatric surgeon. Assessment: yolande es/p laparoscopic sleeve gastrectomy and repair of diaphragmatic hernia Discharge Date/Time: 05/27/22 13:53
[2022-05-26 12:01] LABS: Hematocrit 41.5 % (37.0-47.0); Hemoglobin 13.2 g/dl (12.0-16.0)
[2022-05-26] MEDS: Famotidine/PF 20 MG/2 ML VIAL IVPUSH ×2 (12:03→19:53)
[2022-05-26 12:14] LABS: Anion Gap 17 (12-20); Blood Urea Nitrogen 17 mg/dL (9-16); Calcium 8.7 mg/dL (8.4-10.2); Carbon Dioxide 24 mmol/L (22-29); Chloride 104 mmol/L (96-108); Creatinine Clr Calc Pharmacy 80.6; Estimated Glomerular Filt Rate > 60; Glucose Random 161 mg/dL (60-115); Potassium 4.4 mmol/L (3.3-5.1); Sodium 141 mmol/L (135-145)
[2022-05-26] MEDS: Lactated Ringers 1,000 ML 125 ML IVCONT ×2 (12:22→19:53)
[2022-05-26] MEDS: ondansetron HCL 4 MG/2 ML VIAL IVPUSH ×2 (14:30→23:06)
--- NOTE | 2022-05-26 15:10 | PM.PNGS ---
Subjective Subjective Date of Service: 05/26/22 Interval history: The patient reports that she is doing well. She has minimal nausea and reports her pain is tolerable. She has no regurgitation, vomiting or hematemesis. Pain management is good and she is tolerating bariatric phase 1 diet. She has gotten up to use the bathroom. Physical Exam Vital Signs: Vital Signs: Last Vital Signs Temp 97.3 F 05/26/22 14:50 Pulse 77 05/26/22 14:50 Resp 17 05/26/22 14:50 BP 155/72 H 05/26/22 14:50 Pulse Ox 98 05/26/22 14:50 O2 Del Method 05/26/22 14:50 O2 Flow Rate 2.0 05/26/22 14:50 BMI result Body Mass Index 34.0 Dressings are clean, dry and intact Objective Data Active Medications Famotidine (Famotidine/Pf 20 Mg/2 Ml Vial) 20 mg IVPUSH BID [facility] Last Admin: 05/26/22 12:03 Dose: 20 mg Documented By: RENÉ Fentanyl (Fentanyl Citrate/Pf 100 Mcg/2 Ml Vial) 50 mcg IVPUSH Q5M PRN; Protocol PRN Reason: Pain, Severe (Pain Scale 7-10) Hydromorphone HCl (Hydromorphone Hcl 0.5 Mg/0.5 Ml Syringe) 0.5 mg IVPUSH Q5M PRN; Protocol PRN Reason: Pain, Severe (Pain Scale 7-10) Hydromorphone HCl (Hydromorphone Hcl 0.5 Mg/0.5 Ml Syringe) 0.25 mg IVPUSH Q4H PRN; Protocol PRN Reason: Pain, Moderate (Pain Scale 4-6 Promethazine HCl 12.5 mg/ (Sodium Chloride) 50.5 mls @ 202 mls/hr IV ONCE PRN PRN Reason: Nausea and Vomiting Lactated Ringer's (Lr) 1,000 mls @ 125 mls/hr IVCONT .Q8H [facility] Last Admin: 05/26/22 12:22 Dose: 125 mls/hr Documented By: RENÉ Acetaminophen (Ofirmev) 1,000 mg in 100 mls @ 16.7 mls/hr IV .Q6H [facility] Metoclopramide HCl (Metoclopramide Hcl 10 Mg/2 Ml Vial) 10 mg IVPUSH Q6H PRN PRN Reason: Nausea Ondansetron HCl (Ondansetron Hcl 4 Mg/2 Ml Vial) 4 mg IVPUSH ONCE PRN PRN Reason: Nausea and Vomiting Ondansetron HCl (Ondansetron Hcl 4 Mg/2 Ml Vial) 4 mg IVPUSH Q8H [facility] Last Admin: 05/26/22 14:30 Dose: 4 mg Documented By: SRUJIT Oxycodone HCl (Oxycodone Hcl Immed Release 5 Mg Tablet) 10 mg PO ONCE PRN PRN Reason: Pain, Severe (Pain Scale 7-10) Sodium Chloride (0.9 % Sodium Chloride Flush 3 Ml Syringe) 3 ml IVFLUSH QSHIFT [facility] Labs CBC & Chem 7: 05/26/22 11:51 05/26/22 11:51 Labs: Laboratory Results - last 24 hr 05/26/22 05/26/22 06:10 11:51 Anion Gap 17 Estim Creat Clear Calc 80.6 Estimated GFR > 60 Random Glucose 161 H Calcium 8.7 D Urine Test NEGATIVE Procedures Date of Service Date of Service: 05/26/22 Progress Note: A&P Assessment and plan (1) Status post sleeve gastrectomy: Status: Acute (2) Diabetes: Status: Acute (3) Obesity (BMI 30-39.9): Status: Acute (4) Fibromyalgia: Status: Acute (5) Scar tissue: Status: Acute (6) Hiatal hernia: Status: Acute (7) History of repair of hiatal hernia: Status: Acute Plan Patient is doing well Continue present management Encourage hydration, incentive spirometry and ambulation Check a.m. labs and will re-evaluate in the morning for possible discharge Time Spent With Patient Time: Total time spent is greater than 50% in coordination of care (as documented) at patient's floor/unit and/or counseling patient: Quality Stroke Does the patient have a stroke diagnosis?: No VTE Prior VTE?: No VTE Risk Level:: Surgical - moderate VTE Device Contraindication: N/A - Device Ordered VTE Drug Contraindication: N/A - Med Ordered
[2022-05-26] MEDS: HYDROmorphone HCl 0.5 MG/0.5 ML SYRINGE 0.25 MG IVPUSH (17:07)
[2022-05-26] MEDS: Metoclopramide HCl 10 MG/2 ML VIAL IVPUSH (19:53)
[2022-05-27] MEDS: oxyCODONE HCl Immed Release 5 MG TABLET 10 MG PO (03:19)
[2022-05-27 03:21] VITALS: BP 127/66; PULSE 69; RESP 18; TEMP 36.4; O2SAT 94
[2022-05-27] MEDS: Lactated Ringers 1,000 ML 125 ML IVCONT (03:24)
[2022-05-27 05:57] LABS: MANUAL DIFF FLAG NO
[2022-05-27] MEDS: ondansetron HCL 4 MG/2 ML VIAL IVPUSH (06:07)
[2022-05-27 06:34] LABS: Anion Gap 15 (12-20); Blood Urea Nitrogen 8 mg/dL (9-16); Calcium 8.5 mg/dL (8.4-10.2); Carbon Dioxide 27 mmol/L (22-29); Chloride 105 mmol/L (96-108); Creatinine Clr Calc Pharmacy 96.2; Estimated Glomerular Filt Rate > 60; Glucose Random 106 mg/dL (60-115); Potassium 4.5 mmol/L (3.3-5.1); Sodium 142 mmol/L (135-145)
[2022-05-27 06:38] LABS: Basophils Percent Auto 0.2 % (0-2); Eosinophils Percent Auto 0.1 % (0-4); Hematocrit 34.6 % (37.0-47.0); Hemoglobin 11.2 g/dl (12.0-16.0); Imm Gran Abs Auto 0.05 X10*3/uL (0.00-0.03); Imm Gran Pct Auto 0.4 % (0.0-0.4); Lymphocytes Absolute Auto 1.9 X10*3/uL (1.2-4.9); Mean Corpuscular HGB Conc 32.4 g/dl (31.0-35.0); Mean Corpuscular Hemoglobin 28.6 pg (27.0-33.0); Mean Corpuscular Volume 88.5 fL (80.0-98.0); Mean Platelet Volume 9.8 fL (9.4-12.3); Monocytes Percent Auto 8.9 % (2-11); Neutrophils Absolute Auto 8.7 x10*3/uL (2.0-8.3); Neutrophils Percent Auto 74.4 % (45-73); Platelet Count 314 X10*3/uL (160-400); Red Blood Count 3.91 X10*6/uL (4.20-5.50); Red Cell Distribution Width 13.4 % (11.0-16.0); White Blood Count 11.7 X10*3/uL (4.8-10.8)
[2022-05-27 07:01] VITALS: O2SAT 95
--- NOTE | 2022-05-27 07:07 | PHA.MEDREC ---
Pharmacy Consult ? Medication Reconciliation Pharmacy has completed the medication reconciliation.
--- NOTE | 2022-05-27 07:51 | PM.PNGS ---
Subjective Subjective Date of Service: 05/27/22 Patient reports: feels better Physical Exam Vital Signs: Vital Signs: Last Vital Signs Temp 97.6 F 05/27/22 03:21 Pulse 69 05/27/22 03:21 Resp 18 05/27/22 03:21 BP 127/66 05/27/22 03:21 Pulse Ox 94 05/27/22 03:21 O2 Del Method 05/27/22 03:21 O2 Flow Rate 2.0 05/26/22 16:00 BMI result Body Mass Index 34.0 Objective Data Active Medications Famotidine (Famotidine/Pf 20 Mg/2 Ml Vial) 20 mg IVPUSH BID [facility] Last Admin: 05/26/22 19:53 Dose: 20 mg Documented By: CESAR Fentanyl (Fentanyl Citrate/Pf 100 Mcg/2 Ml Vial) 50 mcg IVPUSH Q5M PRN; Protocol PRN Reason: Pain, Severe (Pain Scale 7-10) Hydromorphone HCl (Hydromorphone Hcl 0.5 Mg/0.5 Ml Syringe) 0.5 mg IVPUSH Q5M PRN; Protocol PRN Reason: Pain, Severe (Pain Scale 7-10) Hydromorphone HCl (Hydromorphone Hcl 0.5 Mg/0.5 Ml Syringe) 0.25 mg IVPUSH Q4H PRN; Protocol PRN Reason: Pain, Moderate (Pain Scale 4-6 Last Admin: 05/26/22 17:07 Dose: 0.25 mg Documented By: SURJIT Promethazine HCl 12.5 mg/ (Sodium Chloride) 50.5 mls @ 202 mls/hr IV ONCE PRN PRN Reason: Nausea and Vomiting Lactated Ringer's (Lr) 1,000 mls @ 125 mls/hr IVCONT .Q8H [facility] Last Admin: 05/27/22 03:24 Dose: 125 mls/hr Documented By: CESAR Acetaminophen (Ofirmev) 1,000 mg in 100 mls @ 16.7 mls/hr IV .Q6H [facility] Last Admin: 05/27/22 03:22 Dose: 16.7 mls/hr Documented By: CESAR Metoclopramide HCl (Metoclopramide Hcl 10 Mg/2 Ml Vial) 10 mg IVPUSH Q6H PRN PRN Reason: Nausea Last Admin: 05/26/22 19:53 Dose: 10 mg Documented By: CESAR Ondansetron HCl (Ondansetron Hcl 4 Mg/2 Ml Vial) 4 mg IVPUSH ONCE PRN PRN Reason: Nausea and Vomiting Ondansetron HCl (Ondansetron Hcl 4 Mg/2 Ml Vial) 4 mg IVPUSH Q8H [facility] Last Admin: 05/27/22 06:07 Dose: 4 mg Documented By: CESAR Sodium Chloride (0.9 % Sodium Chloride Flush 3 Ml Syringe) 3 ml IVFLUSH QSHIFT [facility] Last Admin: 05/27/22 07:50 Dose: Not Given Documented By: JOSEPH Non-Admin Reason: IV Running Labs CBC & Chem 7: 05/27/22 05:11 05/27/22 05:11 Labs: Laboratory Results - last 24 hr 05/26/22 05/27/22 05/27/22 11:51 05:11 05:11 MCV 88.5 MCH 28.6 MCHC 32.4 RDW 13.4 Plt Count 314 MPV 9.8 Immature Gran % (Auto) 0.4 Neut % (Auto) 74.4 H Lymph % (Auto) 16.0 L [place] % (Auto) 8.9 Eos % (Auto) 0.1 Baso % (Auto) 0.2 Lymph # (Auto) 1.9 [place] # (Auto) 1.0 Eos # (Auto) 0.0 Baso # (Auto) 0.0 Abs Immat Gran (auto) 0.05 H Absolute Neuts (auto) 8.7 H Absolute Nucleated RBC 0.000 Nucleated RBC % (auto) 0.0 Anion Gap 17 15 Estim Creat Clear Calc 80.6 96.2 Estimated GFR > 60 > 60 Random Glucose 161 H 106 Calcium 8.7 D 8.5 Procedures Date of Service Date of Service: 05/27/22 Progress Note: A&P Assessment and plan (1) History of repair of hiatal hernia: Status: Acute (2) Status post sleeve gastrectomy: Status: Acute (3) Diabetes: Status: Acute (4) Obesity (BMI 30-39.9): Status: Acute Plan Hb drifted more than typical; recheck at 12;30pm today & reassess re: D/C Pt needing oxycodone due to HHR, may need script at D/C Tolerating Phase 1, advance to Phase 2 bariatric diet Time Spent With Patient Time: Total time spent is greater than 50% in coordination of care (as documented) at patient's floor/unit and/or counseling patient: Quality Stroke Does the patient have a stroke diagnosis?: No VTE Prior VTE?: No VTE Risk Level:: Surgical - moderate VTE Device Contraindication: N/A - Device Ordered VTE Drug Contraindication: N/A - Med Ordered
[2022-05-27 08:00] VITALS: BP 138/79; PULSE 55; RESP 18; TEMP 37; O2SAT 95
[2022-05-27] MEDS: Docusate Sodium 100 MG CAPSULE 200 MG PO (08:37)
[2022-05-27] MEDS: Famotidine/PF 20 MG/2 ML VIAL IVPUSH (08:37)
--- NOTE | 2022-05-27 09:03 | MHC.CM.PN ---
No IMM required Paient is Qatari speaking Patient reports she lives with spouse and children. She is independent at home and community. Denies DME or home services, [facility] [employer] ([employer]), PCP: Denae Coulter. Patient educated regarding HCP, she declined to complete one at this time. Spouse will transport. D/C Plan: Home self-care
[2022-05-27] MEDS: oxyCODONE HCl Immed Release 5 MG TABLET PO (10:35)
[2022-05-27 11:45] VITALS: BP 146/78; PULSE 55; RESP 18; TEMP 36.5; O2SAT 96
[2022-05-27 11:48] VITALS: O2SAT 96
[2022-05-27 12:07] LABS: MANUAL DIFF FLAG NO
[2022-05-27 12:15] LABS: Basophils Percent Auto 0.2 % (0-2); Eosinophils Percent Auto 0.3 % (0-4); Hematocrit 34.3 % (37.0-47.0); Hemoglobin 11.2 g/dl (12.0-16.0); Imm Gran Abs Auto 0.04 X10*3/uL (0.00-0.03); Imm Gran Pct Auto 0.3 % (0.0-0.4); Lymphocytes Absolute Auto 2.5 X10*3/uL (1.2-4.9); Lymphocytes Percent Auto 20.6 % (20-40); Mean Corpuscular HGB Conc 32.7 g/dl (31.0-35.0); Mean Corpuscular Hemoglobin 28.8 pg (27.0-33.0); Mean Corpuscular Volume 88.2 fL (80.0-98.0); Mean Platelet Volume 9.3 fL (9.4-12.3); Monocytes Absolute Auto 0.9 X10*3/uL (0.1-1.2); Monocytes Percent Auto 7.5 % (2-11); Neutrophils Absolute Auto 8.7 x10*3/uL (2.0-8.3); Neutrophils Percent Auto 71.1 % (45-73); Platelet Count 297 X10*3/uL (160-400); Red Blood Count 3.89 X10*6/uL (4.20-5.50); Red Cell Distribution Width 13.5 % (11.0-16.0); White Blood Count 12.2 X10*3/uL (4.8-10.8)
--- NOTE | 2022-05-27 13:31 | MHC.CM.PN ---
Patient has been medically cleared for discharge today to Home self-care. No IMM required
--- NOTE | 2022-05-27 16:03 | HO.POSTANES ---
Post Anesthesia Evaluation Post Anesthesia Evaluation Vital Signs: Vital Signs Temp Pulse Resp BP Pulse Ox O2 Del Method 05/27/22 11:48 96 Room Air 05/27/22 11:45 97.7 F 55 18 146/78 H 96 Room Air 05/27/22 07:01 95 Room Air 05/27/22 08:00 98.6 F 55 18 138/79 95 Room Air Anesthesia: General Endotracheal-GETA Mental Status: Awake Pain Control: Satisfactory Nausea/Vomiting: None Hydration: Adequate Anesthesia-Related Issues: No Anes. Related Issues
== END 2022-05-27 13:53 | disposition home or self-care (01) | DRG 403 ==
LOC: HO.SSSA 11:43 → HO.S3 12:55
PROVIDERS: Nurse Practitioner; Physician Assistant Surgical; Admitting Provider Surgery; PCP Physician Assistant; Visit Provider Surgery
PROC: 0DB64Z3 Excision of Stomach, Percutaneous Endoscopic Approach, Vertical (ICD-10-PCS; CPT 43845; principal; 2022-05-26 07:30)
DX: E66.9 Obesity, unspecified (principal); E11.9 Type 2 diabetes mellitus without complications; K21.9 Gastro-esophageal reflux disease without esophagitis; E78.5 Hyperlipidemia, unspecified; G47.33 Obstructive sleep apnea (adult) (pediatric); K44.9 Diaphragmatic hernia without obstruction or gangrene; M79.7 Fibromyalgia; Z20.822 Contact with and (suspected) exposure to COVID-19; Z68.36 Body mass index [BMI] 36.0-36.9, adult; Z87.891 Personal history of nicotine dependence; Z79.899 Other long term (current) drug therapy
CPT/HCPCS: 36415; 80048; 80053; 80061; 81025; 83036; 83525; 84443; 85014; 85018; 85025; 85610; 85730; 86140; 86850; 86900; 86901; 87635; 88307; 88342; J0131; J0690; J1100; J1170; J2250; J2405; J2765; J2795; J3010

== ENCOUNTER → 2022-09-11 10:07 | Outpatient (BNVA) | payer OTHER, SELFPAY | PROVIDERS: Visit Provider Physician Assistant Surgical | DX: E66.9 Obesity, unspecified (principal); B36.9 Superficial mycosis, unspecified; Z68.30 Body mass index [BMI] 30.0-30.9, adult | CPT/HCPCS: 99212 ==

== ENCOUNTER 2022-11-30 08:30 | Emergency (ER) | payer OTHER, SELFPAY ==
--- NOTE | ~2022-11-30 | CT_ITS ---
EXAMINATION: CT ABDOMEN AND PELVIS WITHOUT CONTRAST CLINICAL INFORMATION: Right-sided renal colic COMPARISON: Previous abdominal ultrasound April 2022 TECHNIQUE: Multidetector volumetric imaging was performed from the superior aspect of the liver through the pubic symphysis. Sagittal and coronal reformatted images were obtained on the technologist's workstation. This CT examination was performed using dose optimization techniques as appropriate, variously including the following: *Automated exposure control *Adjustment of mA and/or kV according to patient size (this includes techniques or standardized protocols for targeted exams where dose is matched to indication/reason for exam; i.e. extremities or head) *Use of iterative reconstruction technique DLP: 564 mGy-cm FINDINGS: LUNG BASES: The visualized lung bases are unremarkable. LIVER, GALLBLADDER, AND BILIARY TREE: The liver is normal in size, and shape. Liver is low in attenuation suggestive of fatty infiltration. No focal hepatic lesion or biliary ductal dilatation is present. The gallbladder has been removed. PANCREAS: Unremarkable. SPLEEN: Unremarkable. ADRENAL GLANDS: Unremarkable. KIDNEYS AND URETERS: There is moderate right hydronephrosis and right proximal and mid ureteral dilatation. The right distal ureter does not appear dilated. There is question of a tiny 1 to 2 mm right distal ureteral stone for example coronal reconstructed image 48 and axial image 505 series 3. There are small 1 to 2 mm bilateral renal stones. No left hydronephrosis. BLADDER: Unremarkable. GASTROINTESTINAL TRACT: Diverticulosis of the colon. No evidence of diverticulitis. Small large bowel are otherwise normal. Normal appendix. Postsurgical changes to the stomach, question gastric sleeve. ABDOMINAL WALL: No significant hernia is appreciated. LYMPH NODES: Normal. VASCULAR: Unremarkable. PELVIC VISCERA: IUD in the uterus in satisfactory position. OSSEOUS STRUCTURES: Nonspecific sclerotic lesion in the T12 vertebral body. No comparison imaging available. Follow-up bone scan should be considered if clinically indicated. CT/CT abdomen pelvis wo IV con IMPRESSION: Moderate right hydronephrosis and proximal and mid ureteral dilatation. There is question of a 1 to 2 mm right distal ureteral stone. Small bilateral renal stones. Diverticulosis. Postsurgical changes to the stomach. Fatty liver. Nonspecific sclerotic lesion in the T12 vertebral body. Comparison with old outside exams if available recommended. Otherwise bone scan should be considered. Fleischner guidelines were followed.
--- NOTE | 2022-11-30 08:34 | ECG_ITS ---
Test Reason : chest pain Blood Pressure : / mmHG Vent. Rate : 069 BPM Atrial Rate : 069 BPM P-R Int : 148 ms QRS Dur : 104 ms QT Int : 414 ms P-R-T Axes : 071 -05 079 degrees QTc Int : 443 ms Normal sinus rhythm Nonspecific ST abnormality Abnormal ECG When compared with ECG of 04-MAR-2022 10:45, Incomplete right bundle branch block is no longer Present Nonspecific T wave abnormality no longer evident in Inferior leads Referred By: Generic ED Physician Electronically Signed By:NATALIE MARTINES
[2022-11-30 08:39] VITALS: BP 123/97; PULSE 74; RESP 18; TEMP 36.3; O2SAT 98; BMI 29.5
[2022-11-30 08:58] LABS: MANUAL DIFF FLAG NO
[2022-11-30 09:00] LABS: Basophils Absolute Auto 0.1 X10*3/uL (0.0-0.2); Basophils Percent Auto 0.8 % (0-2); Eosinophils Absolute Auto 0.1 X10*3/uL (0.0-0.4); Eosinophils Percent Auto 1.1 % (0-4); Hematocrit 41.3 % (37.0-47.0); Hemoglobin 13.4 g/dl (12.0-16.0); Imm Gran Abs Auto 0.03 X10*3/uL (0.00-0.03); Imm Gran Pct Auto 0.4 % (0.0-0.4); Lymphocytes Absolute Auto 1.9 X10*3/uL (1.2-4.9); Lymphocytes Percent Auto 21.9 % (20-40); Mean Corpuscular HGB Conc 32.4 g/dl (31.0-35.0); Mean Corpuscular Hemoglobin 29.2 pg (27.0-33.0); Monocytes Absolute Auto 0.5 X10*3/uL (0.1-1.2); Monocytes Percent Auto 5.4 % (2-11); Neutrophils Percent Auto 70.4 % (45-73); Platelet Count 261 X10*3/uL (160-400); Red Blood Count 4.59 X10*6/uL (4.20-5.50); Red Cell Distribution Width 13.2 % (11.0-16.0); White Blood Count 8.5 X10*3/uL (4.8-10.8)
[2022-11-30 09:11] LABS: Appearance Urine Clear; Color Urine Yellow; Glucose Urine UA Negative (Negative); Leukocyte Esterase Urine Moderate (2+) (Negative); Nitrite Urine Negative (Negative); PH 5.5 (5.0-9.0); UMIC TRIGGER UACC YES; Urine Blood Moderate (2+) (Negative); Urine Ketones Trace mg/dL (Negative); Urine Protein Negative (Neg-Trace)
[2022-11-30 09:16] LABS: Bacteria Urine 1+ (None Seen); Hyaline Casts Urine 0-2 /LPF (0-2); UACC Culture Trigger YES
[2022-11-30 09:22] LABS: Alanine Aminotransferase 20 U/L (0-31); Albumin Level 4.5 g/dL (3.5-5.0); Alkaline Phosphatase 96 U/L (39-117); Anion Gap 19 (12-20); Aspartate Amino Transferase 18 U/L (5-31); Bilirubin Total 0.6 mg/dL (0.0-1.0); Blood Urea Nitrogen 11 mg/dL (9-16); Carbon Dioxide 22 mmol/L (22-29); Chloride 106 mmol/L (96-108); Creatinine Clr Calc Pharmacy 103.6; Estimated Glomerular Filt Rate > 60; Glucose Random 143 mg/dL (60-115); Sodium 143 mmol/L (135-145); Total Protein 7.2 g/dL (6.5-8.0)
[2022-11-30 10:48] VITALS: RESP 18
[2022-11-30] MEDS: 0.9 % Sodium Chloride 1,000 ML 999 ML IV (10:50)
[2022-11-30] MEDS: Tamsulosin HCL 0.4 MG CAPSULE PO (10:51)
[2022-11-30] MEDS: ondansetron HCL 4 MG/2 ML VIAL IVPUSH (10:51)
[2022-11-30] MEDS: Ketorolac Tromethamine 15 MG/ML VIAL IVPUSH ×2 (10:51→14:50)
[2022-11-30 11:06] LABS: HCG Quantitative < 2 mIU/mL; Magnesium 1.6 mg/dL (1.6-2.6)
--- NOTE | 2022-11-30 11:10 | ED.GENADULT ---
HPI - General Adult General Chief complaint: General Medical Stated complaint: Chest pain/Appedix pain ? Time Seen by Provider: 11/30/22 10:31 Source: patient Mode of arrival: ambulatory History of Present Illness HPI narrative: 47-year-old female with a past medical history of diabetes, fibromyalgia, ULICES on CPAP, presenting to ED complaining of intermittent right flank pain radiating to RLQ since this morning with associated nausea. Patient reports associated dysuria. Denies fever, chills, vomiting, hematuria, urgency, diarrhea/constipation. Onset (ago): hour(s) Related Data Previous Rx's Medication Instructions Recorded ketoconazole 2 % topical cream 1 appl topical BID #60 grams 09/11/22 Allergies Allergy/AdvReac Type Severity Reaction Status Date / Time No Known Allergies Allergy Verified 11/30/22 08:42 Review of Systems Review of Systems: Constitutional: No Fever, No Chills ENT/Mouth: No Ear Pain, No Nasal Congestion, No sore throat, No Rhinorrhea, No Swallowing Difficulty Cardiovascular: No Chest Pain, No SOB Respiratory: No Cough, No Sputum, No Wheezing Gastrointestinal: + Nausea, No Vomiting, No Diarrhea, No Constipation, + Abdominal pain Genitourinary: + Dysuria, No Urinary Frequency, No Hematuria, No Urinary Incontinence/retention, No Urgency, + Flank Pain Musculoskeletal: No joint pain, No Myalgias, No Joint Swelling Skin: No Skin Lesions, No rash Neuro: No Weakness Yes all other systems are reviewed and are negative Constitutional: Constitutional: Reports as per [facility] Past Medical History Attestation statement: The following information was validated with the patient. Medical History DM type 2 (diabetes mellitus, type 2) Fibromyalgia ULICES on CPAP Surgical History Hx of cholecystectomy Family History Family History Mother Breast cancer Father Arthritis Diabetes Daughter Obese Scoliosis Social History Social History Are you a primary health care recruiter to a significant other at home: No Do you presently have visiting nurse or other home services: No Alcohol intake: unknown Patient Tobacco Use Status: Former Tobacco user Quit Date: 6 months ago Tobacco use type: Cigarette Smoked in Last 30 Days: No Second Hand Smoke Exposure: Yes Use of substances other than those prescribed or required for medical reasons: Unknown Advance Directives: No Advance Directives Information Provided: No Patient : No service: No Current occupational status: unemployed Physical Exam ED Vital Signs: Vital Signs - 24 hr 11/30/22 08:39 11/30/22 10:48 11/30/22 14:28 Temperature 97.4 F 98.1 F Pulse Rate 74 75 Respiratory Rate 18 18 16 Blood Pressure 123/97 H 133/84 Pulse Oximetry 98 98 Oxygen Delivery Method Room Air Room Air BMI result Body Mass Index 29.5 Const Other: In pain, yelling, writhing on stretcher General: cooperative, healthy appearing, no acute distress, alert and awake Orientation/consciousness: patient oriented x3 Limitations: no limitations HENMT Head: Yes normal to inspection and Yes atraumatic Ears: hearing grossly normal bilaterally General nose exam: Normal external nose present Face and sinus: Yes normal facial exam Eyes General: appearance normal, both eyes and all related structures EOM: EOMs intact bilaterally Neck Neck: Yes normal visual inspection and Yes no meningeal signs Resp Effort & Inspection: normal respiratory effort and no respiratory distress Auscultation: clear to auscultation bilaterally Cardio Rate: regular rate Heart sounds: S1 normal heart sound present and S2 normal heart sound present GI Inspection: Yes normal to inspection Palpation (GI): Soft to palpation, Tenderness to palpation present (GI) in the RLQ; with no rebound tenderness, no guarding and not rigid General: Yes CVA tenderness on the right Back/Spine/Pelvis Back: CVA tenderness Skin Rashes: no rashes Wounds: no wounds Neuro General: patient oriented x3, tone normal and no meningeal signs Gait exam (Neuro): Normal gait present Extrem General: Yes normal to inspection Course Course Course Narrative: -1116--no leukocytosis. H&H stable. Labs otherwise unremarkable -UA with blood, rbc's, leuk esterase and wbc's however contaminated > will obtain repeat for better evaluation CT abdomen pelvis wo IV con IMPRESSION: Moderate right hydronephrosis and proximal and mid ureteral dilatation. There is question of a 1 to 2 mm right distal ureteral stone. Small bilateral renal stones. Diverticulosis. Postsurgical changes to the stomach. Fatty liver. Nonspecific sclerotic lesion in the T12 vertebral body. Comparison with old outside exams if available recommended. Otherwise bone scan should be considered. Fleischner guidelines were followed. >> 1206--on re-evaluation patient reports symptomatic improvement. Sitting comfortably in stretcher on cellphone -1430--repeat UA with blood and rbc's, not infected. Patient sleeping comfortably in stretcher upon re-evaluation. Reports symptomatic improvement. Plan for discharge home with close Urology follow-up. Results discussed with patient including worrisome signs and symptoms and strict return precautions, and when to return to the emergency department. They verbalized understanding and feel safe for discharge at this time. Medications Administered Discontinued Medications Generic Name Dose Route Start Last Admin Trade Name Freq PRN Reason Stop Dose Admin Sodium Chloride 1,000 mls @ 999 mls/hr 11/30/22 10:45 11/30/22 11:43 Ns IV 11/30/22 11:45 Infused .Q1H1M DERIC Infusion Ketorolac Tromethamine 15 mg 11/30/22 10:37 11/30/22 10:51 Ketorolac Tromethamine 15 Mg/Ml Vial IVPUSH 11/30/22 10:38 15 mg ONCE ONE Administration Ondansetron HCl 4 mg 11/30/22 10:41 11/30/22 10:51 Ondansetron Hcl 4 Mg/2 Ml Vial IVPUSH 11/30/22 10:42 4 mg ONCE ONE Administration Tamsulosin HCl 0.4 mg 11/30/22 10:41 11/30/22 10:51 Tamsulosin Hcl 0.4 Mg Capsule PO 11/30/22 10:42 0.4 mg ONCE ONE Administration Medical Decision Making Medical Decision Making MDM Narrative: 47-year-old female with a past medical history of diabetes, fibromyalgia, ULICES on CPAP, presenting to ED complaining of intermittent right flank pain radiating to RLQ since this morning with associated nausea. On exam vital signs stable, appears in pain, yelling in the emergency department, abdomen soft with RLQ and right CVA tenderness, no rebound or guarding. Concern for renal stone/pyelo vs UTI vs appendicitis. Lower suspicion for cholecystitis/phthisis, pancreatitis, or diverticulitis. Plan: Labs, UA, CT AP, IVF, pain management, reassess Please refer to course for remaining clinical decision making, interpretation of labs/imaging results, and discussions with consultants and/or family members. Differential Diagnosis Differential Diagnoses: The differential diagnosis associated with the presentation includes as above Lab Data MDM Lab Attestation statement: I reviewed the patient's lab results. 11/30/22 08:51 11/30/22 08:51 Labs: Lab Results 11/30/22 11/30/22 11/30/22 Range/Units 08:51 08:51 08:55 WBC 8.5 (4.8-10.8) X10*3/uL RBC 4.59 (4.20-5.50) X10*6/uL Hgb 13.4 (12.0-16.0) g/dl Hct 41.3 D (37.0-47.0) % MCV 90.0 (80.0-98.0) fL MCH 29.2 (27.0-33.0) pg MCHC 32.4 (31.0-35.0) g/dl RDW 13.2 (11.0-16.0) % Plt Count 261 (160-400) X10*3/uL MPV 10.0 (9.4-12.3) fL Immature Gran % (Auto) 0.4 (0.0-0.4) % Neut % (Auto) 70.4 (45-73) % Lymph % (Auto) 21.9 (20-40) % [place] % (Auto) 5.4 (2-11) % Eos % (Auto) 1.1 (0-4) % Baso % (Auto) 0.8 (0-2) % Lymph # (Auto) 1.9 (1.2-4.9) X10*3/uL [place] # (Auto) 0.5 (0.1-1.2) X10*3/uL Eos # (Auto) 0.1 (0.0-0.4) X10*3/uL Baso # (Auto) 0.1 (0.0-0.2) X10*3/uL Abs Immat Gran (auto) 0.03 (0.00-0.03) X10*3/uL Absolute Neuts (auto) 6.0 (2.0-8.3) x10*3/uL Absolute Nucleated RBC 0.000 (0.0-0.012) X10*3/uL Nucleated RBC % (auto) 0.0 (0.0-0.2) /100WBC Sodium 143 (135-145) mmol/L Potassium 4.0 (3.3-5.1) mmol/L Chloride 106 (96-108) mmol/L Carbon Dioxide 22 (22-29) mmol/L Anion Gap 19 (12-20) BUN 11 (9-16) mg/dL Creatinine 0.64 (0.5-1.4) mg/dL Estim Creat Clear Calc 103.6 Estimated GFR > 60 Random Glucose 143 H (60-115) mg/dL Calcium 10.0 D (8.4-10.2) mg/dL Magnesium 1.6 (1.6-2.6) mg/dL Total Bilirubin 0.6 (0.0-1.0) mg/dL AST 18 (5-31) U/L ALT 20 (0-31) U/L Alkaline Phosphatase 96 (39-117) U/L Total Protein 7.2 (6.5-8.0) g/dL Albumin 4.5 (3.5-5.0) g/dL Beta HCG, Quant < 2 mIU/mL Urine Color Yellow Urine Appearance Clear Urine pH 5.5 (5.0-9.0) Ur Specific [place] 1.020 (1.005-1.025) Urine Protein Negative (Neg-Trace) mg/dL Urine Glucose (UA) Negative (Negative) mg/dL Urine Ketones Trace (Negative) mg/dL Urine Blood Moderate (2+) H (Negative) Urine Nitrite Negative (Negative) Ur Leukocyte Esterase Moderate (2+) H (Negative) Urine RBC 11-20 H (0-2) /HPF Urine WBC 11-20 H (0-5) /HPF Ur Squamous Epith Cells 6-10 (0-2) /HPF Urine Bacteria 1+ (None Seen) Hyaline Casts 0-2 (0-2) /LPF 11/30/22 Range/Units 13:58 WBC (4.8-10.8) X10*3/uL RBC (4.20-5.50) X10*6/uL Hgb (12.0-16.0) g/dl Hct (37.0-47.0) % MCV (80.0-98.0) fL MCH (27.0-33.0) pg MCHC (31.0-35.0) g/dl RDW (11.0-16.0) % Plt Count (160-400) X10*3/uL MPV (9.4-12.3) fL Immature Gran % (Auto) (0.0-0.4) % Neut % (Auto) (45-73) % Lymph % (Auto) (20-40) % [place] % (Auto) (2-11) % Eos % (Auto) (0-4) % Baso % (Auto) (0-2) % Lymph # (Auto) (1.2-4.9) X10*3/uL [place] # (Auto) (0.1-1.2) X10*3/uL Eos # (Auto) (0.0-0.4) X10*3/uL Baso # (Auto) (0.0-0.2) X10*3/uL Abs Immat Gran (auto) (0.00-0.03) X10*3/uL Absolute Neuts (auto) (2.0-8.3) x10*3/uL Absolute Nucleated RBC (0.0-0.012) X10*3/uL Nucleated RBC % (auto) (0.0-0.2) /100WBC Sodium (135-145) mmol/L Potassium (3.3-5.1) mmol/L Chloride (96-108) mmol/L Carbon Dioxide (22-29) mmol/L Anion Gap (12-20) BUN (9-16) mg/dL Creatinine (0.5-1.4) mg/dL Estim Creat Clear Calc Estimated GFR Random Glucose (60-115) mg/dL Calcium (8.4-10.2) mg/dL Magnesium (1.6-2.6) mg/dL Total Bilirubin (0.0-1.0) mg/dL AST (5-31) U/L ALT (0-31) U/L Alkaline Phosphatase (39-117) U/L Total Protein (6.5-8.0) g/dL Albumin (3.5-5.0) g/dL Beta HCG, Quant mIU/mL Urine Color Yellow Urine Appearance Clear Urine pH 6.0 (5.0-9.0) Ur Specific [place] 1.015 (1.005-1.025) Urine Protein Negative (Neg-Trace) mg/dL Urine Glucose (UA) Negative (Negative) mg/dL Urine Ketones 15 (Negative) mg/dL Urine Blood Moderate (2+) H (Negative) Urine Nitrite Negative (Negative) Ur Leukocyte Esterase Trace H (Negative) Urine RBC 6-10 H (0-2) /HPF Urine WBC 0-5 (0-5) /HPF Ur Squamous Epith Cells 3-5 (0-2) /HPF Urine Bacteria None Seen (None Seen) Hyaline Casts 3-5 (0-2) /LPF Radiology Impression Discussion of test interpretation with radiology: I have reviewed the radiologist's reading. Prescription Management I considered prescription management with: Pain Medication and Antibiotic Chronic Conditions Patient?s care impacted by: Other Discharge Plan Discharge Clinical Impression: Right distal ureteral calculus, Hydronephrosis Patient Disposition: Home, Self-Care Prescriptions: No Action ketoconazole 2 % cream 1 appl topical BID Qty: 60 0RF
[2022-11-30 14:04] LABS: Appearance Urine Clear; Color Urine Yellow; Glucose Urine UA Negative (Negative); Leukocyte Esterase Urine Trace (Negative); Nitrite Urine Negative (Negative); Specific Gravity - Urine 1.015 (1.005-1.025); UMIC TRIGGER UACC YES; Urine Blood Moderate (2+) (Negative); Urine Ketones 15 mg/dL (Negative); Urine Protein Negative (Neg-Trace)
[2022-11-30 14:06] LABS: Bacteria Urine None Seen (None Seen); WBC Urine 0-5 /HPF (0-5)
[2022-11-30 14:28] VITALS: BP 133/84; PULSE 75; RESP 16; TEMP 36.7; O2SAT 98
== END 2022-11-30 15:00 | disposition home or self-care (01) ==
PROVIDERS: Physician Assistant; Emergency Provider Emergency Medicine
DX: N13.2 Hydronephrosis with renal and ureteral calculous obstruction (principal); R07.89 Other chest pain; R30.0 Dysuria; Z87.891 Personal history of nicotine dependence; Z79.899 Other long term (current) drug therapy
CPT/HCPCS: 36415; 74176; 80053; 81001; 81003; 83735; 84702; 85025; 87086; 87147; 93005; 96361; 96374; 96375; 96376; 99284; 99285; J1885; J2405

== ENCOUNTER 2022-12-07 15:12 | Emergency (ER) | payer OTHER, SELFPAY ==
--- NOTE | ~2022-12-07 | US_ITS ---
EXAMINATION: US RETROPERITONEAL LIMITED (RENAL ONLY) CLINICAL INFORMATION: Right flank pain, recent hydronephrosis. COMPARISON: CT abdomen/pelvis 11/30/2022. TECHNIQUE: Real-time imaging of the kidneys. FINDINGS: RIGHT KIDNEY: 10.4 x 3.8 x 3.5 cm (SAG x AP x TRV). The kidney is normal in size, contour, and echogenicity. Renal cortical thickness is normal. No calculi or focal parenchymal lesions. No hydronephrosis. LEFT KIDNEY: 12.4 x 4.8 x 4.4 cm (SAG x AP x TRV). The kidney is normal in size, contour, and echogenicity. Renal cortical thickness is normal. No calculi or focal parenchymal lesions. No hydronephrosis. US/US renal BI IMPRESSION: 1. No hydronephrosis. 2. Previously described sub-2 mm bilateral renal calculi are not identified, likely too small to characterize by ultrasound.
[2022-12-07 15:39] VITALS: BP 122/80; PULSE 79; RESP 18; TEMP 36.8; O2SAT 98; BMI 28.8
--- NOTE | 2022-12-07 15:51 | ED_ITS ---
HPI - Female Genitourinary General Chief complaint: Urogenital-Female <MARICHUY Watson - Last Filed: 12/07/22 15:53> Stated complaint: lower back pain ? kidney stone <MARICHUY Watson - Last Filed: 12/07/22 15:53> Time Seen by Provider: 12/07/22 19:47 <MARICHUY Watson - Last Filed: 12/07/22 15:53> Source: patient <MARICHUY Rodriguez - Last Filed: 12/07/22 21:42> Mode of arrival: ambulatory <MARICHUY Rodriguez Last Filed: 12/07/22 21:42> Limitations: no limitations <MARICHUY Rodriguez Last Filed: 12/07/22 21:42> History of Present Illness HPI Narrative: 47-year-old female history of obesity status post gastric sleeve, diabetes, fibromyalgia, incomplete right bundle-branch block, GERD, hyperlipidemia, obstructive sleep apnea on CPAP, fungal dermatitis presenting to the emergency department with complaints of right-sided flank pain times a week worsening. According to patient she was evaluated in the emergency department for right-sided flank pain about a week ago she was told that she had a 1-2 mm kidney stone and moderate hydronephrosis on CT scan. Patient reports that now she is having right flank pain that is constant in nature in is also having dysuria. Dysuria is new within the last day or 2. Flank pain has been continuous for the past week. Patient denies fevers, chills, chest pain, shortness of breath, nausea, vomiting, headache, vision changes, dizziness. <MARICHUY Rodriguez - Last Filed: 12/07/22 21:42> Related Data Home medications: Previous Rx's Medication Instructions Recorded ketoconazole 2 % topical cream 1 appl topical BID #60 grams 09/11/22 acetaminophen 500 mg tablet 500 mg PO Q6H PRN fever or pain 11/30/22 (Tylenol Extra Strength) #14 tabs ketorolac 10 mg tablet 10 mg PO TID PRN pain 5 days #15 11/30/22 tabs tamsulosin 0.4 mg capsule (Flomax) 0.4 mg PO DAILY #14 caps 11/30/22 cefuroxime axetil 250 mg tablet 250 mg PO BID 7 days #14 tabs 12/07/22 <MARICHUY Watson - Last Filed: 12/07/22 15:53> Allergies/Adverse reactions: Allergies Allergy/AdvReac Type Severity Reaction Status Date / Time No Known Allergies Allergy Verified 11/30/22 08:42 <MARICHUY Watson - Last Filed: 12/07/22 15:53> Review of Systems Review of Systems: Constitutional : No Weight loss, No Fever, No Chills, No Fatigue, No Malaise ENT/Mouth : No sore throat, No Rhinorrhea Eyes: No Eye Pain, No Swelling, No Redness Cardiovascular : No Chest Pain, No SOB, No Dyspnea on Exertion, No Orthopnea, No Edema, No Palpitations Respiratory : No Cough, No Sputum, No Wheezing Gastrointestinal : No Nausea, No Vomiting, No Diarrhea, No Constipation, No abdominal Pain, No Hematochezia, No Melena Genitourinary : + Dysuria, No Urinary Frequency, No Hematuria, Musculoskeletal : No joint pain, No Myalgias, No Joint Swelling, + right flank pain Skin : No Skin Lesions, No rash Neuro : No Weakness, No Numbness, No Dizziness, No Headache Psych : No Anxiety/Panic, No Depression All other systems reviewed and are negative <MARICHUY Rodriguez - Last Filed: 12/07/22 21:42> Yes all other systems are reviewed and are negative <MARICHUY Rodriguez - Last Filed: 12/07/22 21:42> [facility] Past Medical History Medical History: Medical History DM type 2 (diabetes mellitus, type 2) Fibromyalgia ULICES on CPAP <MARICHUY Watson - Last Filed: 12/07/22 15:53> Surgical History: Surgical History Hx of cholecystectomy <MARICHUY Watson - Last Filed: 12/07/22 15:53> Family History Family History: Family History Mother Breast cancer Father Arthritis Diabetes Daughter Obese Scoliosis <MARICHUY Watson - Last Filed: 12/07/22 15:53> Social History Social History: Social History Are you a primary manager critical care to a significant other at home: No Do you presently have visiting nurse or other home services: No Alcohol intake: unknown Patient Tobacco Use Status: Former Tobacco user Quit Date: 6 months ago Tobacco use type: Cigarette Second Hand Smoke Exposure: Yes Advance Directives: No Advance Directives Information Provided: Yes service: No Current occupational status: unemployed <MARICHUY Watson - Last Filed: 12/07/22 15:53> Physical Exam Vital Signs: Vital Signs: Last Vital Signs Temp 98.2 F 12/07/22 15:39 Pulse 79 12/07/22 15:39 Resp 18 12/07/22 15:39 BP 122/80 12/07/22 15:39 Pulse Ox 98 12/07/22 15:39 O2 Del Method 12/07/22 15:39 BMI result Body Mass Index 28.8 <MARICHUY Watson - Last Filed: 12/07/22 15:53> Vital Signs: Last Vital Signs Temp 98.2 F 12/07/22 15:39 Pulse 79 12/07/22 15:39 Resp 18 12/07/22 15:39 BP 122/80 12/07/22 15:39 Pulse Ox 98 12/07/22 15:39 O2 Del Method 12/07/22 15:39 BMI result Body Mass Index 28.8 <MARICHUY Rodriguez - Last Filed: 12/07/22 21:42> Course Course Course Narrative: RME - 47 yo female with history of fibromyalgia, ULICES, obesity s/p gastric sleeve, DM with recent 1-2mm kidney stone and moderate hydronephrosis on CT scan 1 week ago presents to [facility] ER for evaluation of worsening right flank pain. Also concerned about infection with new onset pain w/ urination. Plan: renal U/S to reassess hydro, labs, UA <MARICHUY Watson - Last Filed: 12/07/22 15:53> Reevaluation(s) Reevaluation #1: CBC appears to be within normal limits. Chemistry with no acute electrolyte abnormalities requiring immediate intervention. UA clean no signs of infection. No leukocyte esterases or nitrates. Bilateral renal ultrasound with no hydronephrosis, previously described sub 2 mm bilateral renal calculi are no longer identified likely too small to be picked up on in ultrasound. Patient with UTI symptoms will treat for potential UTI based off symptoms. Educated patient on diagnosis and treatment plan, answered all question, patient verbalizes understanding. At this time patient will be discharged home, advised to return with new or worsening symptoms. Educated on worrisome signs and symptoms and when to return. At this time I feel comfortable discharge home. <MARICHUY Rodriguez - Last Filed: 12/07/22 21:42> Time: 20:57 <MARICHUY Rodriguez - Last Filed: 12/07/22 21:42> Medications Administered Discontinued Medications Generic Name Dose Route Start Last Admin Trade Name Freq PRN Reason Stop Dose Admin Ketorolac Tromethamine 30 mg 12/07/22 20:59 12/07/22 21:12 Ketorolac Tromethamine 30 Mg/Ml Vial IM 12/07/22 21:00 30 mg ONCE ONE Administration <MARICHUY Watson - Last Filed: 12/07/22 15:53> Medications Administered Discontinued Medications Generic Name Dose Route Start Last Admin Trade Name Freq PRN Reason Stop Dose Admin Ketorolac Tromethamine 30 mg 12/07/22 20:59 12/07/22 21:12 Ketorolac Tromethamine 30 Mg/Ml Vial IM 12/07/22 21:00 30 mg ONCE ONE Administration <MARICHUY Rodriguez - Last Filed: 12/07/22 21:42> Medical Decision Making Medical Decision Making [facility] Narrative: 2057 47-year-old female presents for evaluation of right flank pain and dysuria, recently was diagnosed with hydronephrosis and small renal stones. Upon chart review it appears as though patient was seen here in November 30 did have hydronephrosis and small stones. Was discharged home. Has not seen Urology for this. Physical exam benign. Patient will appearing. Vital signs stable. Concerns for possible UTI versus cystitis versus obstructing uropathy. I do not suspect severe sepsis on this patient or sepsis. This also could be remnant pain from kidney stone passing. Plan at this time labs, imaging. <MARICHUY Rodriguez - Last Filed: 12/07/22 21:42> Differential Diagnosis Differential Diagnoses: The differential diagnosis associated with the presentation includes <MARICHUY Rodriguez - Last Filed: 12/07/22 21:42> Concerns for possible UTI versus cystitis versus obstructing uropathy. I do not suspect severe sepsis on this patient or sepsis. This also could be remnant pain from kidney stone passing. <MARICHUY Rodriguez - Last Filed: 12/07/22 21:42> Admission/Observation Consideration of admission/observation: Escalation of care including admission/observation considered <MARICHUY Rodriguez - Last Filed: 12/07/22 21:42> Unlikely <MARICHUY Rodriguez - Last Filed: 12/07/22 21:42> Lab Data MDM Lab Attestation statement: I reviewed the patient's lab results. <MARICHUY Rodriguez - Last Filed: 12/07/22 21:42> Result Diagrams: 12/07/22 16:22 12/07/22 16:22 <MARICHUY Watson - Last Filed: 12/07/22 15:53> Labs: Lab Results 12/07/22 12/07/22 12/07/22 Range/Units 16:22 16:22 16:22 WBC 7.7 (4.8-10.8) X10*3/uL RBC 4.61 (4.20-5.50) X10*6/uL Hgb 13.5 (12.0-16.0) g/dl Hct 41.6 (37.0-47.0) % MCV 90.2 (80.0-98.0) fL MCH 29.3 (27.0-33.0) pg MCHC 32.5 (31.0-35.0) g/dl RDW 13.4 (11.0-16.0) % Plt Count 285 (160-400) X10*3/uL MPV 9.6 (9.4-12.3) fL Immature Gran % (Auto) 0.3 (0.0-0.4) % Neut % (Auto) 50.5 (45-73) % Lymph % (Auto) 39.4 (20-40) % [place] % (Auto) 7.4 (2-11) % Eos % (Auto) 1.8 (0-4) % Baso % (Auto) 0.6 (0-2) % Lymph # (Auto) 3.1 (1.2-4.9) X10*3/uL [place] # (Auto) 0.6 (0.1-1.2) X10*3/uL Eos # (Auto) 0.1 (0.0-0.4) X10*3/uL Baso # (Auto) 0.1 (0.0-0.2) X10*3/uL Abs Immat Gran (auto) 0.02 (0.00-0.03) X10*3/uL Absolute Neuts (auto) 3.9 (2.0-8.3) x10*3/uL Absolute Nucleated RBC 0.000 (0.0-0.012) X10*3/uL Nucleated RBC % (auto) 0.0 (0.0-0.2) /100WBC Sodium 142 (135-145) mmol/L Potassium 4.5 (3.3-5.1) mmol/L Chloride 107 (96-108) mmol/L Carbon Dioxide 29 (22-29) mmol/L Anion Gap 11 L (12-20) BUN 19 H (9-16) mg/dL Creatinine 0.74 (0.5-1.4) mg/dL Estim Creat Clear Calc 88.6 Estimated GFR > 60 Random Glucose 100 (60-115) mg/dL Calcium 9.5 (8.4-10.2) mg/dL Magnesium 1.9 (1.6-2.6) mg/dL Total Bilirubin 0.4 (0.0-1.0) mg/dL Direct Bilirubin < 0.2 (0.0-0.5) mg/dL AST 17 (5-31) U/L ALT 19 (0-31) U/L Alkaline Phosphatase 94 (39-117) U/L Total Protein 7.5 (6.5-8.0) g/dL Albumin 4.6 (3.5-5.0) g/dL Urine Color Yellow Urine Appearance Clear Urine pH 5.5 (5.0-9.0) Ur Specific [place] >= 1.030 H (1.005-1.025) Urine Protein Negative (Neg-Trace) mg/dL Urine Glucose (UA) Negative (Negative) mg/dL Urine Ketones Negative (Negative) mg/dL Urine Blood Negative (Negative) Urine Nitrite Negative (Negative) Ur Leukocyte Esterase Negative (Negative) <MARICHUY Watson - Last Filed: 12/07/22 15:53> Lab Results 12/07/22 12/07/22 12/07/22 Range/Units 16:22 16:22 16:22 WBC 7.7 (4.8-10.8) X10*3/uL RBC 4.61 (4.20-5.50) X10*6/uL Hgb 13.5 (12.0-16.0) g/dl Hct 41.6 (37.0-47.0) % MCV 90.2 (80.0-98.0) fL MCH 29.3 (27.0-33.0) pg MCHC 32.5 (31.0-35.0) g/dl RDW 13.4 (11.0-16.0) % Plt Count 285 (160-400) X10*3/uL MPV 9.6 (9.4-12.3) fL Immature Gran % (Auto) 0.3 (0.0-0.4) % Neut % (Auto) 50.5 (45-73) % Lymph % (Auto) 39.4 (20-40) % [place] % (Auto) 7.4 (2-11) % Eos % (Auto) 1.8 (0-4) % Baso % (Auto) 0.6 (0-2) % Lymph # (Auto) 3.1 (1.2-4.9) X10*3/uL [place] # (Auto) 0.6 (0.1-1.2) X10*3/uL Eos # (Auto) 0.1 (0.0-0.4) X10*3/uL Baso # (Auto) 0.1 (0.0-0.2) X10*3/uL Abs Immat Gran (auto) 0.02 (0.00-0.03) X10*3/uL Absolute Neuts (auto) 3.9 (2.0-8.3) x10*3/uL Absolute Nucleated RBC 0.000 (0.0-0.012) X10*3/uL Nucleated RBC % (auto) 0.0 (0.0-0.2) /100WBC Sodium 142 (135-145) mmol/L Potassium 4.5 (3.3-5.1) mmol/L Chloride 107 (96-108) mmol/L Carbon Dioxide 29 (22-29) mmol/L Anion Gap 11 L (12-20) BUN 19 H (9-16) mg/dL Creatinine 0.74 (0.5-1.4) mg/dL Estim Creat Clear Calc 88.6 Estimated GFR > 60 Random Glucose 100 (60-115) mg/dL Calcium 9.5 (8.4-10.2) mg/dL Magnesium 1.9 (1.6-2.6) mg/dL Total Bilirubin 0.4 (0.0-1.0) mg/dL Direct Bilirubin < 0.2 (0.0-0.5) mg/dL AST 17 (5-31) U/L ALT 19 (0-31) U/L Alkaline Phosphatase 94 (39-117) U/L Total Protein 7.5 (6.5-8.0) g/dL Albumin 4.6 (3.5-5.0) g/dL Urine Color Yellow Urine Appearance Clear Urine pH 5.5 (5.0-9.0) Ur Specific [place] >= 1.030 H (1.005-1.025) Urine Protein Negative (Neg-Trace) mg/dL Urine Glucose (UA) Negative (Negative) mg/dL Urine Ketones Negative (Negative) mg/dL Urine Blood Negative (Negative) Urine Nitrite Negative (Negative) Ur Leukocyte Esterase Negative (Negative) <MARICHUY Rodriguez - Last Filed: 12/07/22 21:42> Independent Interpretation I performed an independent interpretation of an: Ultrasound (US/US renal BI IMPRESSION: 1. No hydronephrosis. 2. Prev iously described sub-2 mm bilateral renal calculi are not identified, likely too small to characterize by ultrasound.) <MARICHUY Rodriguez - Last Filed: 12/07/22 21:42> Radiology Impression Discussion of test interpretation with radiology: I have reviewed the radiologist's reading. <MARICHUY Rodriguez - Last Filed: 12/07/22 21:42> Core Measures AMI core measures followed: Yes <MARICHUY Rodriguez Last Filed: 12/07/22 21:42> Measure exclusions: not indicated <MARICHUY Rodriguez Last Filed: 12/07/22 21:42> Critical Care Time Critical Care Time Critical Care Time: No <MARICHUY Rodriguez Last Filed: 12/07/22 21:42> Discharge Plan Discharge Clinical Impression: UTI symptoms, Right flank pain <MARICHUY Watson Last Filed: 12/07/22 15:53> Patient Disposition: Home, Self-Care <MARICHUY Watson Last Filed: 12/07/22 15:53> Instructions: Flank Pain (ED), Urinary Urgency and Frequency (DC) <MARICHUY Watson Last Filed: 12/07/22 15:53> Additional Instructions: Take your medications as prescribed. If you were prescribed antibiotics today, it is important that you take your medication to their entirety, do not skip any doses, do not finish them early. Follow-up with your primary care provider this week. Return to the emergency department with new or worsening symptoms. Such as fevers, chills, chest pain, shortness of breath, nausea, vomiting, dizziness, headache, vision changes, lethargy In case of emergency call 911 Toradol has been sent to your pharmacy, you tolerated this well in the department. Please take this as prescribed do not take this with ibuprofen, or other NSAIDs, do not mix this with alcohol. Side effects of this medication including increased risk for bleeding and possible kidney injury. <MARICHUY Watson Last Filed: 12/07/22 15:53> Prescriptions: New cefuroxime axetil 250 mg tablet 250 mg PO BID 7 Days Qty: 14 0RF No Action tamsulosin [Flomax] 0.4 mg capsule 0.4 mg PO DAILY Qty: 14 0RF acetaminophen [Tylenol Extra Strength] 500 mg tablet 500 mg PO Q6H PRN (Reason: fever or pain) Qty: 14 0RF ketorolac 10 mg tablet 10 mg PO TID PRN (Reason: pain) 5 Days Qty: 15 0RF ketoconazole 2 % cream 1 appl topical BID Qty: 60 0RF <MARICHUY Watson - Last Filed: 12/07/22 15:53> Referrals: [facility] [Provider Group] - 2 days Physician,Unknown J [Primary Care Provider] - 2 days <MARICHUY Watson - Last Filed: 12/07/22 15:53> Stand Alone Forms: Work/School Release <MARICHUY Watson - Last Filed: 12/07/22 15:53> Interventions: ED Discharge Assessment Last Done: 12/07/22 21:17 <MARICHUY Watson - Last Filed: 12/07/22 15:53> Discharge Date/Time: 12/07/22 21:17 <MARICHUY Watson - Last Filed: 12/07/22 15:53>
[2022-12-07 16:32] LABS: MANUAL DIFF FLAG NO
[2022-12-07 16:37] LABS: Appearance Urine Clear; Color Urine Yellow; Glucose Urine UA Negative (Negative); Leukocyte Esterase Urine Negative (Negative); Nitrite Urine Negative (Negative); PH 5.5 (5.0-9.0); Specific Gravity - Urine >= 1.030 (1.005-1.025); Urine Blood Negative (Negative); Urine Ketones Negative (Negative); Urine Protein Negative (Neg-Trace)
[2022-12-07 16:41] LABS: Basophils Absolute Auto 0.1 X10*3/uL (0.0-0.2); Basophils Percent Auto 0.6 % (0-2); Eosinophils Absolute Auto 0.1 X10*3/uL (0.0-0.4); Eosinophils Percent Auto 1.8 % (0-4); Hematocrit 41.6 % (37.0-47.0); Hemoglobin 13.5 g/dl (12.0-16.0); Imm Gran Abs Auto 0.02 X10*3/uL (0.00-0.03); Imm Gran Pct Auto 0.3 % (0.0-0.4); Lymphocytes Absolute Auto 3.1 X10*3/uL (1.2-4.9); Lymphocytes Percent Auto 39.4 % (20-40); Mean Corpuscular HGB Conc 32.5 g/dl (31.0-35.0); Mean Corpuscular Hemoglobin 29.3 pg (27.0-33.0); Mean Corpuscular Volume 90.2 fL (80.0-98.0); Mean Platelet Volume 9.6 fL (9.4-12.3); Monocytes Absolute Auto 0.6 X10*3/uL (0.1-1.2); Monocytes Percent Auto 7.4 % (2-11); Neutrophils Absolute Auto 3.9 x10*3/uL (2.0-8.3); Neutrophils Percent Auto 50.5 % (45-73); Platelet Count 285 X10*3/uL (160-400); Red Blood Count 4.61 X10*6/uL (4.20-5.50); Red Cell Distribution Width 13.4 % (11.0-16.0); White Blood Count 7.7 X10*3/uL (4.8-10.8)
[2022-12-07 16:48] LABS: Alanine Aminotransferase 19 U/L (0-31); Albumin Level 4.6 g/dL (3.5-5.0); Alkaline Phosphatase 94 U/L (39-117); Anion Gap 11 (12-20); Aspartate Amino Transferase 17 U/L (5-31); Bilirubin Direct < 0.2 mg/dL (0.0-0.5); Bilirubin Total 0.4 mg/dL (0.0-1.0); Blood Urea Nitrogen 19 mg/dL (9-16); Calcium 9.5 mg/dL (8.4-10.2); Carbon Dioxide 29 mmol/L (22-29); Chloride 107 mmol/L (96-108); Creatinine Clr Calc Pharmacy 88.6; Estimated Glomerular Filt Rate > 60; Glucose Random 100 mg/dL (60-115); Magnesium 1.9 mg/dL (1.6-2.6); Potassium 4.5 mmol/L (3.3-5.1); Sodium 142 mmol/L (135-145); Total Protein 7.5 g/dL (6.5-8.0)
[2022-12-07] MEDS: Ketorolac Tromethamine 30 MG/ML VIAL IM (21:12)
== END 2022-12-07 21:17 | disposition home or self-care (01) ==
PROVIDERS: Physician Assistant; Emergency Provider Emergency Medicine
DX: N39.0 Urinary tract infection, site not specified (principal); R10.9 Unspecified abdominal pain; E11.9 Type 2 diabetes mellitus without complications; E78.5 Hyperlipidemia, unspecified; I45.10 Unspecified right bundle-branch block; Z90.3 Acquired absence of stomach [part of]; Z87.891 Personal history of nicotine dependence
CPT/HCPCS: 36415; 76775; 80048; 80076; 81003; 83735; 85025; 96372; 99283; 99284; J1885

== ENCOUNTER → 2022-12-08 09:59 | Outpatient (BNVA) | payer OTHER, SELFPAY | PROVIDERS: Visit Provider Physician Assistant Surgical | DX: Z90.3 Acquired absence of stomach [part of] (principal); E66.9 Obesity, unspecified ==

== ENCOUNTER → 2022-12-18 12:26 | Outpatient (BNVA) | payer OTHER, SELFPAY | PROVIDERS: Visit Provider Urology | DX: N20.0 Calculus of kidney (principal); N13.2 Hydronephrosis with renal and ureteral calculous obstruction; N12 Tubulo-interstitial nephritis, not specified as acute or chronic; R10.9 Unspecified abdominal pain | CPT/HCPCS: 99202 ==

== ENCOUNTER → 2022-12-23 15:41 | Outpatient (BNVA) | payer OTHER, SELFPAY | PROVIDERS: Visit Provider Urology | DX: N20.0 Calculus of kidney (principal); E11.9 Type 2 diabetes mellitus without complications; M79.7 Fibromyalgia; G47.33 Obstructive sleep apnea (adult) (pediatric); Z99.89 Dependence on other enabling machines and devices; Z79.899 Other long term (current) drug therapy | CPT/HCPCS: 99212 ==

== ENCOUNTER 2023-01-11 10:32 | Outpatient (REF) | payer OTHER, SELFPAY ==
[2023-01-11 12:30] LABS: Cholesterol 209 mg/dL; HDL Cholesterol 65 mg/dL; Iron 60 mcg/dL (30-160); LDL Cholesterol Calculated 124 mg/dl; Percent Iron Saturation 19 % (15-50); Total Iron Binding Capacity 322 mcg/dL (228-428); Triglycerides 101 mg/dL; Unsaturated Iron Binding 262 ug/dL
[2023-01-11 12:47] LABS: Ferritin 24 ng/mL (10-250); Folate > 20.0 ng/mL (> or = 4.0); TSH reflex Free T4 0.76 uIU/mL (0.32-4.0); Vitamin B12 892 pg/mL (200-900); Vitamin D 25-OH Total 26.9 ng/mL (>30)
[2023-01-13 17:03] LABS: Calcium (PTHI) 9.6 mg/dL (8.6-10.2); PTHI 75 pg/mL (16-77)
[2023-01-14 06:13] LABS: Zinc 70 mcg/dL (60-130)
[2023-01-17 22:38] LABS: Vitamin A 40 mcg/dL (38-98)
[2023-01-20 05:59] LABS: Vitamin B1 24 nmol/L (8-30)
== END 2023-01-11 10:33 | disposition home or self-care (01) ==
LOC: HO.LAB 10:32
PROVIDERS: Visit Provider Physician Assistant Surgical
DX: E66.9 Obesity, unspecified (principal); Z90.3 Acquired absence of stomach [part of]
CPT/HCPCS: 36415; 80061; 82306; 82607; 82728; 82746; 83540; 83970; 84425; 84443; 84590; 84630

== ENCOUNTER 2023-03-19 17:00 | Emergency (ER) | payer OTHER, SELFPAY ==
[2023-03-19 17:19] VITALS: BP 97/65; PULSE 75; RESP 16; TEMP 36.6; O2SAT 96; BMI 28.7
--- NOTE | 2023-03-19 17:20 | ED.GENADULT ---
HPI - General Adult General Chief complaint: Vaginal Bleeding Stated complaint: Vaginal bleeding Time Seen by Provider: 03/19/23 18:18 Source: patient Mode of arrival: ambulatory History of Present Illness HPI narrative: 47-year-old female with history and recent treatment for vaginal infection with metronidazole and presents with concerns regarding vaginal bleeding, she states that has been almost a year since she had her menstrual period and is concerned that it may have been and interaction with the medication that she took for the vaginal infection. She also reports some lower abdominal cramping. But otherwise denies any fever, chills, nausea, vomiting, urinary symptoms. Related Data Previous Rx's Medication Instructions Recorded ketoconazole 2 % topical cream 1 appl topical BID #60 grams 09/11/22 acetaminophen 500 mg tablet 500 mg PO Q6H PRN fever or pain 11/30/22 (Tylenol Extra Strength) #14 tabs Allergies Allergy/AdvReac Type Severity Reaction Status Date / Time No Known Allergies Allergy Verified 03/19/23 17:19 Review of Systems Review of Systems: Pertinent positives and negatives as stated in HPI [facility] Past Medical History Source: nursing notes reviewed Medical History DM type 2 (diabetes mellitus, type 2) Fibromyalgia ULICES on CPAP Surgical History Hx of cholecystectomy Family History Family History Mother Breast cancer Father Arthritis Diabetes Daughter Obese Scoliosis Social History Social History Are you a primary healthcare technician to a significant other at home: No Do you presently have visiting nurse or other home services: No Alcohol intake: unknown Patient Tobacco Use Status: Former Tobacco user Quit Date: 6 months ago Tobacco use type: Cigarette Second Hand Smoke Exposure: Yes Advance Directives: No Advance Directives Information Provided: Yes service: No Current occupational status: unemployed Physical Exam ED Vital Signs: Vital Signs - 24 hr 03/19/23 17:19 03/19/23 18:56 Temperature 97.8 F Pulse Rate 75 86 Respiratory Rate 16 Blood Pressure 97/65 130/75 Pulse Oximetry 96 96 Oxygen Delivery Method Room Air Room Air BMI result Body Mass Index 28.7 VITAL SIGNS: Reviewed. GENERAL: Well developed, well nourished, in no acute distress. HEAD: Normocephalic/atraumatic EYES: PERRLA, EOMI EARS: Ext canals without abnormality NOSE: Nares patent bilateral OROPHARYNX: no oral lesions noted, posterior pharynx clear NECK: Supple, no adenopathy LUNGS: Normal breath sounds. No adventitious sounds or accessory muscle use. SpO2<96> CARDIOVASCULAR: Regular rate and rhythm without noted murmurs ABDOMEN: Soft, non-tender, non-distended with bowel sounds. MUSCULOSKELETAL: No tenderness, deformities, or effusions noted on gross inspection. EXTREMITIES: No cyanosis, clubbing or edema. SKIN: Inspection of the skin reveals no rashes NEUROLOGIC: Alert and oriented x 4. Strength and sensation to light touch were grossly intact x 4. Course Course Course Narrative: This is an RME: Additional HPI, ROS, PE not included below will be deferred to primary provider. This is a [id number], with hx of gastric sleeve in May 2022, presenting to the emergency department with a complaint of heavy vaginal bleeding x 5 Pt was seen by her OBGYN and was told she had an infection and was placed on oral metronidazole. She took this for 3 days, however did not like the side effects, and she was switched to the metronidazole vaginal gel 5 days ago and has had vaginal bleeding since. Admits to having thick clots and vaginal discharge. States lower abdominal cramping. She is going through > 10 pads a day, bleeding through clothes. No fatigue or weakness. Last menstrual cycle was 1 year ago. Plan: Labs ordered. Will need further examination in main ER. Medical Decision Making Medical Decision Making MDM Narrative: 47-year-old female with history and clinical presentation after review of all investigations my interpretation is that this patient has had and initiation of her menses despite the likelihood that she is perimenopausal at this time. There is a possibility that she has AUB, but can follow-up with her stock buyer at a prescribed time and will be provided with combination analgesics. All results and findings were discussed with the patient, she was given reassurance and understands that she will continues take Tylenol ibuprofen for pain control. The urinalysis is consistent with contamination of menses. Differential Diagnosis Please see the discussion above Lab Data Please see the discussion above 03/19/23 17:33 03/19/23 17:33 Labs: Lab Results 03/19/23 03/19/23 03/19/23 Range/Units 17:33 17:33 17:33 WBC 7.7 (4.8-10.8) X10*3/uL RBC 4.37 (4.20-5.50) X10*6/uL Hgb 12.9 (12.0-16.0) g/dl Hct 39.5 (37.0-47.0) % MCV 90.4 (80.0-98.0) fL MCH 29.5 (27.0-33.0) pg MCHC 32.7 (31.0-35.0) g/dl RDW 12.8 (11.0-16.0) % Plt Count 305 (160-400) X10*3/uL MPV 9.8 (9.4-12.3) fL Immature Gran % (Auto) 0.1 (0.0-0.4) % Neut % (Auto) 53.0 (45-73) % Lymph % (Auto) 38.9 (20-40) % [place] % (Auto) 5.0 (2-11) % Eos % (Auto) 2.1 (0-4) % Baso % (Auto) 0.9 (0-2) % Lymph # (Auto) 3.0 (1.2-4.9) X10*3/uL [place] # (Auto) 0.4 (0.1-1.2) X10*3/uL Eos # (Auto) 0.2 (0.0-0.4) X10*3/uL Baso # (Auto) 0.1 (0.0-0.2) X10*3/uL Abs Immat Gran (auto) 0.01 (0.00-0.03) X10*3/uL Absolute Neuts (auto) 4.1 (2.0-8.3) x10*3/uL Absolute Nucleated RBC 0.000 (0.0-0.012) X10*3/uL Nucleated RBC % (auto) 0.0 (0.0-0.2) /100WBC PT 11.6 (10.0-13.1) SEC INR 1.0 (0.9-1.1) APTT 37.5 H (26.0-36.4) SEC Sodium 142 (135-145) mmol/L Potassium 3.8 (3.3-5.1) mmol/L Chloride 106 (96-108) mmol/L Carbon Dioxide 26 (22-29) mmol/L Anion Gap 14 (12-20) BUN 13 (9-16) mg/dL Creatinine 0.72 (0.5-1.4) mg/dL Estim Creat Clear Calc 90.8 Estimated GFR > 60 Random Glucose 125 H (60-115) mg/dL Calcium 9.6 (8.4-10.2) mg/dL Total Bilirubin 0.3 (0.0-1.0) mg/dL Direct Bilirubin 0.1 (0.0-0.5) mg/dL AST 16 (5-31) U/L ALT 11 (0-31) U/L Alkaline Phosphatase 105 (39-117) U/L Total Protein 6.9 (6.5-8.0) g/dL Albumin 4.1 (3.5-5.0) g/dL Urine Color Urine Appearance Urine pH (5.0-9.0) Ur Specific [place] (1.005-1.025) Urine Protein (Neg-Trace) mg/dL Urine Glucose (UA) (Negative) mg/dL Urine Ketones (Negative) mg/dL Urine Blood (Negative) Urine Nitrite (Negative) Ur Leukocyte Esterase (Negative) Urine RBC (0-2) /HPF Urine WBC (0-5) /HPF Ur Squamous Epith Cells (0-2) /HPF Urine Bacteria (None Seen) Hyaline Casts (0-2) /LPF Urine Test (NEGATIVE) 03/19/23 03/19/23 Range/Units 17:39 17:39 WBC (4.8-10.8) X10*3/uL RBC (4.20-5.50) X10*6/uL Hgb (12.0-16.0) g/dl Hct (37.0-47.0) % MCV (80.0-98.0) fL MCH (27.0-33.0) pg MCHC (31.0-35.0) g/dl RDW (11.0-16.0) % Plt Count (160-400) X10*3/uL MPV (9.4-12.3) fL Immature Gran % (Auto) (0.0-0.4) % Neut % (Auto) (45-73) % Lymph % (Auto) (20-40) % [place] % (Auto) (2-11) % Eos % (Auto) (0-4) % Baso % (Auto) (0-2) % Lymph # (Auto) (1.2-4.9) X10*3/uL [place] # (Auto) (0.1-1.2) X10*3/uL Eos # (Auto) (0.0-0.4) X10*3/uL Baso # (Auto) (0.0-0.2) X10*3/uL Abs Immat Gran (auto) (0.00-0.03) X10*3/uL Absolute Neuts (auto) (2.0-8.3) x10*3/uL Absolute Nucleated RBC (0.0-0.012) X10*3/uL Nucleated RBC % (auto) (0.0-0.2) /100WBC PT (10.0-13.1) SEC INR (0.9-1.1) APTT (26.0-36.4) SEC Sodium (135-145) mmol/L Potassium (3.3-5.1) mmol/L Chloride (96-108) mmol/L Carbon Dioxide (22-29) mmol/L Anion Gap (12-20) BUN (9-16) mg/dL Creatinine (0.5-1.4) mg/dL Estim Creat Clear Calc Estimated GFR Random Glucose (60-115) mg/dL Calcium (8.4-10.2) mg/dL Total Bilirubin (0.0-1.0) mg/dL Direct Bilirubin (0.0-0.5) mg/dL AST (5-31) U/L ALT (0-31) U/L Alkaline Phosphatase (39-117) U/L Total Protein (6.5-8.0) g/dL Albumin (3.5-5.0) g/dL Urine Color BROWN Urine Appearance Turbid Urine pH 5.5 (5.0-9.0) Ur Specific [place] >= 1.030 H (1.005-1.025) Urine Protein 100 (2+) H (Neg-Trace) mg/dL Urine Glucose (UA) Negative (Negative) mg/dL Urine Ketones Trace (Negative) mg/dL Urine Blood Large (3+) H (Negative) Urine Nitrite Negative (Negative) Ur Leukocyte Esterase Trace H (Negative) Urine RBC >20 H (0-2) /HPF Urine WBC 21-50 H (0-5) /HPF Ur Squamous Epith Cells 6-10 (0-2) /HPF Urine Bacteria 1+ (None Seen) Hyaline Casts 3-5 (0-2) /LPF Urine Test NEGATIVE (NEGATIVE) External Record Review External record reviewed: Outpatient record and Prior outpatient labs Discharge Plan Discharge Clinical Impression: [place]-menopause, Disorder of menstrual bleeding Patient Disposition: Home, Self-Care Instructions: Dysfunctional Uterine Bleeding (ED) Additional Instructions: 1. Recommend [id number] Tylenol/ibuprofen as needed for pain control. Also recommend heating pad. 2. Please follow-up with your stock buyer in the next 2-3 days. Return to the ER for any worsening symptoms. Prescriptions: No Action acetaminophen [Tylenol Extra Strength] 500 mg tablet 500 mg PO Q6H PRN (Reason: fever or pain) Qty: 14 0RF ketoconazole 2 % cream 1 appl topical BID Qty: 60 0RF
[2023-03-19 17:46] LABS: MANUAL DIFF FLAG NO
[2023-03-19 17:52] LABS: Appearance Urine Turbid; Color Urine BROWN; Glucose Urine UA Negative (Negative); Leukocyte Esterase Urine Trace (Negative); Nitrite Urine Negative (Negative); PH 5.5 (5.0-9.0); Specific Gravity - Urine >= 1.030 (1.005-1.025); UMIC TRIGGER UACC YES; Urine Blood Large (3+) (Negative); Urine Ketones Trace mg/dL (Negative); Urine Protein 100 (2+) mg/dL (Neg-Trace)
[2023-03-19 17:53] LABS: UPreg QC Valid YES; Urine Pregnancy NEGATIVE (NEGATIVE)
[2023-03-19 17:55] LABS: Basophils Absolute Auto 0.1 X10*3/uL (0.0-0.2); Basophils Percent Auto 0.9 % (0-2); Eosinophils Absolute Auto 0.2 X10*3/uL (0.0-0.4); Eosinophils Percent Auto 2.1 % (0-4); Hematocrit 39.5 % (37.0-47.0); Hemoglobin 12.9 g/dl (12.0-16.0); Imm Gran Abs Auto 0.01 X10*3/uL (0.00-0.03); Imm Gran Pct Auto 0.1 % (0.0-0.4); Lymphocytes Percent Auto 38.9 % (20-40); Mean Corpuscular HGB Conc 32.7 g/dl (31.0-35.0); Mean Corpuscular Hemoglobin 29.5 pg (27.0-33.0); Mean Corpuscular Volume 90.4 fL (80.0-98.0); Mean Platelet Volume 9.8 fL (9.4-12.3); Monocytes Absolute Auto 0.4 X10*3/uL (0.1-1.2); Neutrophils Absolute Auto 4.1 x10*3/uL (2.0-8.3); Platelet Count 305 X10*3/uL (160-400); Red Blood Count 4.37 X10*6/uL (4.20-5.50); Red Cell Distribution Width 12.8 % (11.0-16.0); White Blood Count 7.7 X10*3/uL (4.8-10.8)
[2023-03-19 17:57] LABS: Bacteria Urine 1+ (None Seen); RBC Urine >20 /HPF (0-2); UACC Culture Trigger YES; WBC Urine 21-50 /HPF (0-5)
[2023-03-19 18:00] LABS: Partial Thromboplastin Time 37.5 SEC (26.0-36.4); Prothrombin Time 11.6 SEC (10.0-13.1)
[2023-03-19 18:12] LABS: Alanine Aminotransferase 11 U/L (0-31); Albumin Level 4.1 g/dL (3.5-5.0); Alkaline Phosphatase 105 U/L (39-117); Anion Gap 14 (12-20); Aspartate Amino Transferase 16 U/L (5-31); Bilirubin Direct 0.1 mg/dL (0.0-0.5); Bilirubin Total 0.3 mg/dL (0.0-1.0); Blood Urea Nitrogen 13 mg/dL (9-16); Calcium 9.6 mg/dL (8.4-10.2); Carbon Dioxide 26 mmol/L (22-29); Chloride 106 mmol/L (96-108); Creatinine Clr Calc Pharmacy 90.8; Estimated Glomerular Filt Rate > 60; Glucose Random 125 mg/dL (60-115); Potassium 3.8 mmol/L (3.3-5.1); Sodium 142 mmol/L (135-145); Total Protein 6.9 g/dL (6.5-8.0)
[2023-03-19 18:56] VITALS: BP 130/75; PULSE 86; O2SAT 96
[2023-03-19] MEDS: Acetaminophen 325 MG TABLET 975 MG PO (19:45)
[2023-03-19] MEDS: Ibuprofen 400 MG TABLET PO (19:45)
== END 2023-03-19 19:48 | disposition home or self-care (01) ==
PROVIDERS: Physician Assistant Medical; Emergency Provider Student in an Organized Health Care Education/Training Program
DX: N92.4 Excessive bleeding in the premenopausal period (principal); Z87.891 Personal history of nicotine dependence; Z79.899 Other long term (current) drug therapy
CPT/HCPCS: 36415; 80048; 80076; 81001; 81025; 85025; 85610; 85730; 87086; 87147; 99283

== ENCOUNTER 2023-03-26 14:39 | Outpatient (AMB) | payer OTHER, SELFPAY ==
--- NOTE | 2023-03-26 14:53 | A.OFFVIS_ITS ---
Intake Intake Visit Reasons: 3m/l[facility]olink(set) Intake Note: Patient presents today for 3mo follow-up with [facility] Results. 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 03/26/23-- The patient states she consumed less fluids during the time of 24-hour urine collection test. Discussed 24 hour urine results--Collected on 03/01/23-- Total volume 570 mL, Calcium 51 mg; Oxalate 13 mg, Sodium 56, Citrate 202 mg. Instructed on importance of fluid intake, Low oxalate diet, low sodium diet. Renal US--12/07/22-- Kidneys WNL, no renal calculi visualized. CTAP results reviewed-- 1-2 mm right distal ureteral stone with small bilateral renal stones. Review of chart: Office visit-- 12/18/22 She was here with her daughter with flank pain, h/o kidney stones she was in the ED 12/07/22 due to flank pain disc imaging- B/L small kidney stones about 2mm, no hydronephrosis She was started on Ceftin 250 mg bid by the ED, Exam - bilateral flank tenderness on palpation. Plan disc'd on 12/18/22 was to continue Abx - increase Ceftin 500mg bid to treat possible pyelo, restart flomax, dilaudid 2 mg prn #8, fu next week, increase fluids 12/23/22--The patient states the pain is improved.? She has one more day of Antibiotics. I have reviewed diet plan for kidney stone prevention, (increase fluids, low oxalate, low Na)pamphlet given Evaluation today:? UA? blood neg. Plan - follow kidney stone prevention diet discussed, 24 hr urine, fu in 3 months. 03/26/23-Plan: Discussed to consume adequate amount fluids. Renal US after 11 months was ordered. Follow-up after 1 year. ? [facility] Medical History DM type 2 (diabetes mellitus, type 2) Fibromyalgia ULICES on CPAP Surgical History Hx of cholecystectomy Family History Mother Breast cancer Father Arthritis Diabetes Daughter Obese Scoliosis Social History Are you a primary rn wound care to a significant other at home: No Do you presently have visiting nurse or other home services: No Alcohol intake: never Patient Tobacco Use Status: Former Tobacco user Quit Date: 6 months ago Tobacco use type: Cigarette Second Hand Smoke Exposure: Yes service: No Current occupational status: unemployed Review of Systems Const All systems reviewed & are unremarkable except as noted in HPI and below Reports no additional complaints Eyes Reports no additional complaints ENT Reports no additional complaints Card Denies dyspnea Resp Denies cough and Denies dyspnea GI Reports no additional complaints Reports no additional complaints Musc Reports no additional complaints Skin/Breast Denies rash and Denies unusual bruising Neuro Reports no additional complaints Psych Reports no additional complaints Endo Reports no additional complaints Dayday/Lymph Reports no additional complaints Aller/Immun Reports no additional complaints Results Reviewed Results Reviewed: Date of Service: 12/07/22 EXAMINATION: US RETROPERITONEAL LIMITED (RENAL ONLY) CLINICAL INFORMATION: Right flank pain, recent hydronephrosis. COMPARISON: CT abdomen/pelvis 11/30/2022. TECHNIQUE: Real-time imaging of the kidneys.? FINDINGS: RIGHT KIDNEY: 10.4 x 3.8 x 3.5 cm (SAG x AP x TRV). The kidney is normal in size, contour, and echogenicity. Renal cortical thickness is normal. No calculi or focal parenchymal lesions. No hydronephrosis. LEFT KIDNEY: 12.4 x 4.8 x 4.4 cm (SAG x AP x TRV). The kidney is normal in size, contour, and echogenicity. Renal cortical thickness is normal. No calculi or focal parenchymal lesions. No hydronephrosis. IMPRESSION: 1.? No hydronephrosis. 2.? Previously described sub-2 mm bilateral renal calculi are not identified, likely too small to characterize by ultrasound. Date of Service: 11/30/22 EXAMINATION: CT ABDOMEN AND PELVIS WITHOUT CONTRAST? CLINICAL INFORMATION: Right-sided renal colic? COMPARISON: Previous abdominal ultrasound April 2022? TECHNIQUE: Multidetector volumetric imaging was performed from the superior aspect of the liver through the pubic symphysis. Sagittal and coronal reformatted images were obtained on the technologist's workstation.? This CT examination was performed using dose optimization techniques as appropriate, variously including the following: *Automated exposure control *Adjustment of mA and/or kV according to patient size (this includes techniques or standardized protocols for targeted exams where dose is matched to indication/reason for exam; i.e. extremities or head) *Use of iterative reconstruction technique DLP: 564 mGy-cm FINDINGS: LUNG BASES: The visualized lung bases are unremarkable.? LIVER, GALLBLADDER, AND BILIARY TREE: The liver is normal in size, and shape. Liver is low in attenuation suggestive of fatty infiltration. No focal hepatic lesion or biliary ductal dilatation is present. The gallbladder has been removed. PANCREAS: Unremarkable.? SPLEEN: Unremarkable.? ADRENAL GLANDS: Unremarkable.? KIDNEYS AND URETERS: There is moderate right hydronephrosis and right proximal and mid ureteral dilatation. The right distal ureter does not appear dilated. There is question of a tiny 1 to 2 mm right distal ureteral stone for example coronal reconstructed image 48 and axial image 505 series 3. There are small 1 to 2 mm bilateral renal stones. No left hydronephrosis. BLADDER: Unremarkable.? GASTROINTESTINAL TRACT: Diverticulosis of the colon. No evidence of diverticulitis. Small large bowel are otherwise normal. Normal appendix. Postsurgical changes to the stomach, question gastric sleeve. ABDOMINAL WALL: No significant hernia is appreciated.? LYMPH NODES: Normal. VASCULAR: Unremarkable. PELVIC VISCERA: IUD in the uterus in satisfactory position. OSSEOUS STRUCTURES: Nonspecific sclerotic lesion in the T12 vertebral body. No comparison imaging available. Follow-up bone scan should be considered if clinically indicated. IMPRESSION: Moderate right hydronephrosis and proximal and mid ureteral dilatation. There is question of a 1 to 2 mm right distal ureteral stone. Small bilateral renal stones. Diverticulosis. Postsurgical changes to the stomach. Fatty liver. Nonspecific sclerotic lesion in the T12 vertebral body. Comparison with old outside exams if available recommended. Otherwise bone scan should be considered. Assessment & Plan Assessment & Plan (1) Bilateral kidney stones: Code(s): N20.0 - Calculus of kidney Plan Discussed to consume adequate amount fluids. Renal US after 11 months was ordered. Follow-up after 1 year. Orders: Orders US renal BI 10 Months N20.0 - Calculus of kidney Patient Instructions: The patient had an opportunity to ask questions regarding treatment plan. All questions were answered. Imaging, Laboratory studies and physical exam results were discussed and reviewed in detail. No major barriers to understanding were identified. The patient expressed understanding and agreement with the above treatment plan. The patient is aware they should contact our office by phone for worsening of their current condition or the appearance of new symptoms. Compliance is encouraged with any medications and followup testing that is ordered. It is a privilege to be allowed the opportunity to participate in the urologic care of your patient. If you have any questions or concerns regarding treatment for the above conditions please do not hesitate to contact me. The office telephone contact is [phone]. This note is constructed in part using voice recognition software. While every effort has been made to ensure accuracy poultry farmworker errors may have been included. Yours sincerely, Kailey Bingham MD Coding Level of Care Code Est Pt Level 3 (81532) Diagnoses Bilateral kidney stones N20.0
== END 2023-03-26 15:10 | disposition home or self-care (01) ==
LOC: HO.HUSH 14:39
PROVIDERS: Visit Provider Urology
DX: N20.0 Calculus of kidney (principal)
CPT/HCPCS: 99213

== ENCOUNTER → 2023-03-26 14:39 | Outpatient (BNVA) | payer OTHER, SELFPAY | PROVIDERS: Visit Provider Urology | DX: N20.0 Calculus of kidney (principal) | CPT/HCPCS: 99212 ==

== ENCOUNTER 2023-05-26 13:43 | Emergency (ER) | payer OTHER, SELFPAY ==
--- NOTE | ~2023-05-26 | CT_ITS ---
EXAMINATION: CT ABDOMEN AND PELVIS WITHOUT CONTRAST CLINICAL INFORMATION: Abdominal pain. COMPARISON: 11/30/2022 TECHNIQUE: Multidetector volumetric imaging was performed from the superior aspect of the liver through the pubic symphysis. Sagittal and coronal reformatted images were obtained on the technologist's workstation. This CT examination was performed using dose optimization techniques as appropriate, variously including the following: *Automated exposure control. *Adjustment of mA and/or kV according to patient size (this includes techniques or standardized protocols for targeted exams where dose is matched to indication/reason for exam; i.e. extremities or head). *Use of iterative reconstruction technique. DLP: 604 mGy-cm FINDINGS: LUNG BASES: The visualized lung bases are unremarkable. LIVER, GALLBLADDER, AND BILIARY TREE: The liver is normal in size, shape, and attenuation. No focal hepatic lesion or biliary ductal dilatation is present. There has been a prior cholecystectomy. PANCREAS: Unremarkable. SPLEEN: Unremarkable. ADRENAL GLANDS: Unremarkable. KIDNEYS AND URETERS: The kidneys are normal in size and configuration. There are scattered bilateral 1-2 mm calculi. There is mild left hydronephrosis and proximal left hydroureter to the level of a 3 mm mid left ureteric calculus. BLADDER: Unremarkable. GASTROINTESTINAL TRACT: There is prior gastric sleeve procedure. There are no dilated loops of bowel. ABDOMINAL WALL: No significant hernia is appreciated. LYMPH NODES: Normal. VASCULAR: Unremarkable. PELVIC VISCERA: Unremarkable. OSSEOUS STRUCTURES: There is stable mild diffuse thoracolumbar disc degenerative change. There is a stable sclerotic density within the T12 vertebral body. CT/CT abdomen pelvis wo IV con IMPRESSION: 1. 3 mm mid left ureteric calculus with mild mid left hydroureter and hydronephrosis. 2. Nonobstructing 1 to 2 mm bilateral renal calculi. Fleischner guidelines were followed.
[2023-05-26 14:01] VITALS: BP 147/102; PULSE 83; RESP 18; TEMP 36.7; O2SAT 99; BMI 27.5
--- NOTE | 2023-05-26 14:02 | ED_ITS ---
HPI - Abdominal Pain General Chief Complaint: Abdominal Pain Stated Complaint: Kidney Stone Time Seen by Provider: 05/26/23 15:26 Source: patient Mode of arrival: ambulatory Limitations: no limitations History of Present Illness HPI narrative: Patient comes to the emergency room complaining of left-sided flank pain starting today. Patient states she denies dysuria. Patient has history of kidney stones and it hurts just like a kidney stone. Patient complaining of nausea and vomiting due to the pain, no diarrhea. Denies urine chills Related Data Previous Rx's Medication Instructions Recorded ketoconazole 2 % topical cream 1 appl topical BID #60 grams 09/11/22 acetaminophen 500 mg tablet 500 mg PO Q6H PRN fever or pain 11/30/22 (Tylenol Extra Strength) #14 tabs ondansetron HCl 4 mg tablet 4 mg PO Q6H PRN nausea and 05/26/23 vomiting #10 tabs oxycodone 5 mg tablet 5 mg PO Q8H PRN pain #9 tabs 05/26/23 tamsulosin 0.4 mg capsule (Flomax) 0.4 mg PO DAILY #10 caps 05/26/23 Allergies Allergy/AdvReac Type Severity Reaction Status Date / Time No Known Allergies Allergy Verified 03/19/23 17:19 Review of Systems Review of Systems Constitutional : No Weight loss, No Fever, No Chills, No Night Sweats, No Fatigue, No Malaise ENT/Mouth : No Hearing loss, No Ear Pain, No Nasal Congestion, No Sinus Pain, No Hoarseness, No sore throat, No Rhinorrhea, No Swallowing Difficulty Eyes: No Eye Pain, No Swelling, No Redness, No Foreign Body, No Discharge, No Vision Changes Cardiovascular : No Chest Pain, No SOB, No Dyspnea on Exertion, No Orthopnea, No Edema, No Palpitations Respiratory : No Cough, No Sputum, No Wheezing, No Smoke Exposure, No Dyspnea Gastrointestinal : No Nausea, No Vomiting, No Diarrhea, No Constipation, No abdominal Pain, No Hematochezia, No Melena Genitourinary : no irregular bleeding, No Dysuria, No Urinary Frequency, No Hematuria, No Urinary Incontinence, No Urgency complaining of left-sided Flank Pain, No Urinary Flow Changes, No Hesitancy Musculoskeletal : No joint pain, No Myalgias, No Joint Swelling Skin : No Skin Lesions, No rash Neuro : No Weakness, No Numbness, No Paresthesias, No Loss of Consciousness, No Dizziness, No Headache Psych : No Anxiety/Panic, No Depression, No SI/HI/AH/VH, No Social Issues, Heme/Lymph: No Bruising, No Bleeding,No Lymphadenopathy Endocrine : No Polyuria, No Polydipsia, No Temperature Intolerance [facility] Past Medical History Medical History DM type 2 (diabetes mellitus, type 2) Fibromyalgia ULICES on CPAP Surgical History Hx of cholecystectomy Family History Family History Mother Breast cancer Father Arthritis Diabetes Daughter Obese Scoliosis Social History Social History Are you a primary rn patient care to a significant other at home: No Do you presently have visiting nurse or other home services: No Alcohol intake: never Patient Tobacco Use Status: Former Tobacco user Quit Date: 6 months ago Tobacco use type: Cigarette Smoked in Last 30 Days: No Second Hand Smoke Exposure: Yes Use of substances other than those prescribed or required for medical reasons: No Advance Directives: No Advance Directives Information Provided: No service: No Current occupational status: unemployed Physical Exam ED Vital Signs: Vital Signs - 24 hr 05/26/23 14:01 Temperature 98.1 F Pulse Rate 83 Respiratory Rate 18 Blood Pressure 147/102 H Pulse Oximetry 99 Oxygen Delivery Method Room Air BMI result Body Mass Index 27.5 Const Other: Appearance: Alert. Oriented X3. No acute distress. Eyes: Pupils equal, round and reactive to light. ENT: Pharynx normal. Neck: Normal inspection. Neck supple. No lymph nodes noted. No crepitus CVS: Normal heart rate and rhythm. Pulses normal. Normal S1 and S2 Respiratory: No respiratory distress. Breath sounds normal. No Wheezing. No rales Abdomen: Soft and nontender. No rigidity. No distention. Positive CVA tenderness on the left Skin: Skin warm and dry. Normal skin color. Normal skin turgor. Extremities: No lower extremity edema. No Lacerations. No Rash Neuro: Oriented X 3. No motor deficit. No sensory deficit. Moving all extremities. No slurred speech. CN 2 through 12 grossly intact Psych: calm, cooperative, normal affect Course Course Course Narrative: RME: 47-year-old female with past medical history of renal stones, pyelonephritis, diabetes, fibromyalgia, GERD, HLD, ULICES on CPAP complaining of left flank pain x today w/ assoc N/V. Denies hematuria/dysuria Tearful, appears uncomfortable Labs, UA, CT ordered Full HPI, ROS and PE to be performed by primary ED provider. Medical Decision Making Medical Decision Making [facility] Narrative: -while patient was waiting to be seen, patient received Toradol, patient states he worked very well for her. -subsequentl, patient started having recurrent left flank pain, patient was given 2 mg of morphine. -urinalysis my interpretation: No UTI, white blood cell count normal, renal function normal -CT scan my interpretation, positive for utero lithiasis on the left -patient instructed to follow-up with urology Differential Diagnosis Differential Diagnoses: The differential diagnosis associated with the presentation includes (Ureterolithiasis, pyelonephritis, renal colic) Admission/Observation Consideration of admission/observation: Escalation of care including admission/observation considered (Patient came in complaining of severe pain on the left flank, admission considered) Lab Data [facility] Lab Attestation statement: I reviewed the patient's lab results. 05/26/23 14:34 05/26/23 14:34 Labs: Lab Results 05/26/23 05/26/23 05/26/23 Range/Units 14:34 14:34 17:25 WBC 7.5 (4.8-10.8) X10*3/uL RBC 4.64 (4.20-5.50) X10*6/uL Hgb 13.7 (12.0-16.0) g/dl Hct 41.7 (37.0-47.0) % MCV 89.9 (80.0-98.0) fL MCH 29.5 (27.0-33.0) pg MCHC 32.9 (31.0-35.0) g/dl RDW 12.9 (11.0-16.0) % Plt Count 272 (160-400) X10*3/uL MPV 9.9 (9.4-12.3) fL Immature Gran % (Auto) 0.3 (0.0-0.4) % Neut % (Auto) 50.4 (45-73) % Lymph % (Auto) 38.9 (20-40) % [place] % (Auto) 8.2 (2-11) % Eos % (Auto) 1.5 (0-4) % Baso % (Auto) 0.7 (0-2) % Lymph # (Auto) 2.9 (1.2-4.9) X10*3/uL [place] # (Auto) 0.6 (0.1-1.2) X10*3/uL Eos # (Auto) 0.1 (0.0-0.4) X10*3/uL Baso # (Auto) 0.1 (0.0-0.2) X10*3/uL Abs Immat Gran (auto) 0.02 (0.00-0.03) X10*3/uL Absolute Neuts (auto) 3.8 (2.0-8.3) x10*3/uL Absolute Nucleated RBC 0.000 (0.0-0.012) X10*3/uL Nucleated RBC % (auto) 0.0 (0.0-0.2) /100WBC Sodium 146 H (135-145) mmol/L Potassium 3.6 (3.3-5.1) mmol/L Chloride 110 H (96-108) mmol/L Carbon Dioxide 26 (22-29) mmol/L Anion Gap 14 (12-20) BUN 11 (9-16) mg/dL Creatinine 0.74 (0.5-1.4) mg/dL Estim Creat Clear Calc 86.4 Estimated GFR > 60 Random Glucose 109 (60-115) mg/dL Calcium 9.8 (8.4-10.2) mg/dL Magnesium 2.0 (1.6-2.6) mg/dL Total Bilirubin 0.2 (0.0-1.0) mg/dL Direct Bilirubin < 0.2 (0.0-0.5) mg/dL AST 17 (5-31) U/L ALT 16 (0-31) U/L Alkaline Phosphatase 97 (39-117) U/L Total Protein 7.8 (6.5-8.0) g/dL Albumin 4.4 (3.5-5.0) g/dL Lipase 25 (8-78) U/L Urine Color Yellow Urine Appearance Clear Urine pH 6.0 (5.0-9.0) Ur Specific [place] 1.010 (1.005-1.025) Urine Protein Negative (Neg-Trace) mg/dL Urine Glucose (UA) Negative (Negative) mg/dL Urine Ketones Trace (Negative) mg/dL Urine Blood Moderate (2+) H (Negative) Urine Nitrite Negative (Negative) Ur Leukocyte Esterase Negative (Negative) Urine RBC 6-10 H (0-2) /HPF Urine WBC 0-5 (0-5) /HPF Ur Squamous Epith Cells 0-2 (0-2) /HPF Urine Bacteria None Seen (None Seen) Hyaline Casts 0-2 (0-2) /LPF Urine Test (NEGATIVE) 05/26/23 Range/Units 17:25 WBC (4.8-10.8) X10*3/uL RBC (4.20-5.50) X10*6/uL Hgb (12.0-16.0) g/dl Hct (37.0-47.0) % MCV (80.0-98.0) fL MCH (27.0-33.0) pg MCHC (31.0-35.0) g/dl RDW (11.0-16.0) % Plt Count (160-400) X10*3/uL MPV (9.4-12.3) fL Immature Gran % (Auto) (0.0-0.4) % Neut % (Auto) (45-73) % Lymph % (Auto) (20-40) % [place] % (Auto) (2-11) % Eos % (Auto) (0-4) % Baso % (Auto) (0-2) % Lymph # (Auto) (1.2-4.9) X10*3/uL [place] # (Auto) (0.1-1.2) X10*3/uL Eos # (Auto) (0.0-0.4) X10*3/uL Baso # (Auto) (0.0-0.2) X10*3/uL Abs Immat Gran (auto) (0.00-0.03) X10*3/uL Absolute Neuts (auto) (2.0-8.3) x10*3/uL Absolute Nucleated RBC (0.0-0.012) X10*3/uL Nucleated RBC % (auto) (0.0-0.2) /100WBC Sodium (135-145) mmol/L Potassium (3.3-5.1) mmol/L Chloride (96-108) mmol/L Carbon Dioxide (22-29) mmol/L Anion Gap (12-20) BUN (9-16) mg/dL Creatinine (0.5-1.4) mg/dL Estim Creat Clear Calc Estimated GFR Random Glucose (60-115) mg/dL Calcium (8.4-10.2) mg/dL Magnesium (1.6-2.6) mg/dL Total Bilirubin (0.0-1.0) mg/dL Direct Bilirubin (0.0-0.5) mg/dL AST (5-31) U/L ALT (0-31) U/L Alkaline Phosphatase (39-117) U/L Total Protein (6.5-8.0) g/dL Albumin (3.5-5.0) g/dL Lipase (8-78) U/L Urine Color Urine Appearance Urine pH (5.0-9.0) Ur Specific [place] (1.005-1.025) Urine Protein (Neg-Trace) mg/dL Urine Glucose (UA) (Negative) mg/dL Urine Ketones (Negative) mg/dL Urine Blood (Negative) Urine Nitrite (Negative) Ur Leukocyte Esterase (Negative) Urine RBC (0-2) /HPF Urine WBC (0-5) /HPF Ur Squamous Epith Cells (0-2) /HPF Urine Bacteria (None Seen) Hyaline Casts (0-2) /LPF Urine Test NEGATIVE (NEGATIVE) Independent Interpretation I performed an independent interpretation of an: CT Scan Radiology Impression Discussion of test interpretation with radiology: I have reviewed the radiologist's reading. Radiologist Impression: FINDINGS: LUNG BASES: The visualized lung bases are unremarkable.? LIVER, GALLBLADDER, AND BILIARY TREE: The liver is normal in size, shape, and attenuation. No focal hepatic lesion or biliary ductal dilatation is present. There has been a prior cholecystectomy.? PANCREAS: Unremarkable.? SPLEEN: Unremarkable.? ADRENAL GLANDS: Unremarkable.? KIDNEYS AND URETERS: The kidneys are normal in size and configuration. There are scattered bilateral 1-2 mm calculi. There is mild left hydronephrosis and proximal left hydroureter to the level of a 3 mm mid left ureteric calculus.? BLADDER: Unremarkable.? GASTROINTESTINAL TRACT: There is prior gastric sleeve procedure. There are no dilated loops of bowel.? ABDOMINAL WALL: No significant hernia is appreciated.? LYMPH NODES: Normal. VASCULAR: Unremarkable. PELVIC VISCERA: Unremarkable.? OSSEOUS STRUCTURES: There is stable mild diffuse thoracolumbar disc degenerative change. There is a stable sclerotic density within the T12 vertebral body. CT/CT abdomen pelvis wo IV con IMPRESSION: 1. 3 mm mid left ureteric calculus with mild mid left hydroureter and hydronephrosis. ? 2. Nonobstructing 1 to 2 mm bilateral renal calculi.? Prescription Management I considered prescription management with: Pain Medication (I considered given ketorolac, however patient has history of gastric sleeve, therefore it will not be prescribed) and Other Medications Administered Discontinued Medications Generic Name Dose Route Start Last Admin Trade Name Freq PRN Reason Stop Dose Admin Sodium Chloride 1,000 mls @ 999 mls/hr 05/26/23 15:45 05/26/23 15:45 Ns IV 05/26/23 16:45 999 mls/hr .Q1H1M DERIC Administration Ketorolac Tromethamine 30 mg 05/26/23 15:39 05/26/23 15:44 Ketorolac Tromethamine 30 Mg/Ml Vial IVPUSH 05/26/23 15:40 30 mg ONCE ONE Administration Ondansetron HCl 4 mg 05/26/23 15:39 05/26/23 15:44 Ondansetron Hcl 4 Mg/2 Ml Vial IVPUSH 05/26/23 15:40 4 mg ONCE ONE Administration Critical Care Time Critical Care Time Critical Care Time: Yes Total Critical Care Time: 60 Attestation: I have personally provided critical care time. Time includes review of lab data, radiology results, discussion with consultants, and monitoring for potential decompensation. Intervention performed as documented. Discharge Plan Discharge Clinical Impression: Ureterolithiasis Patient Disposition: Home, Self-Care Instructions: Ureteral Stones (ED) Additional Instructions: Please follow-up with your primary care physician tomorrow. If you have any worsening or new symptoms, please return to the emergency room or call 911 Prescriptions: New oxycodone 5 mg tablet 5 mg PO Q8H PRN (Reason: pain) Qty: 9 0RF Rx Instructions: Partial Fill upon patient request. ondansetron HCl 4 mg tablet 4 mg PO Q6H PRN (Reason: nausea and vomiting) Qty: 10 0RF tamsulosin [Flomax] 0.4 mg capsule 0.4 mg PO DAILY Qty: 10 0RF No Action acetaminophen [Tylenol Extra Strength] 500 mg tablet 500 mg PO Q6H PRN (Reason: fever or pain) Qty: 14 0RF ketoconazole 2 % cream 1 appl topical BID Qty: 60 0RF
[2023-05-26 14:39] LABS: MANUAL DIFF FLAG NO
[2023-05-26 14:44] LABS: Basophils Absolute Auto 0.1 X10*3/uL (0.0-0.2); Basophils Percent Auto 0.7 % (0-2); Eosinophils Absolute Auto 0.1 X10*3/uL (0.0-0.4); Eosinophils Percent Auto 1.5 % (0-4); Hematocrit 41.7 % (37.0-47.0); Hemoglobin 13.7 g/dl (12.0-16.0); Imm Gran Abs Auto 0.02 X10*3/uL (0.00-0.03); Imm Gran Pct Auto 0.3 % (0.0-0.4); Lymphocytes Absolute Auto 2.9 X10*3/uL (1.2-4.9); Lymphocytes Percent Auto 38.9 % (20-40); Mean Corpuscular HGB Conc 32.9 g/dl (31.0-35.0); Mean Corpuscular Hemoglobin 29.5 pg (27.0-33.0); Mean Corpuscular Volume 89.9 fL (80.0-98.0); Mean Platelet Volume 9.9 fL (9.4-12.3); Monocytes Absolute Auto 0.6 X10*3/uL (0.1-1.2); Monocytes Percent Auto 8.2 % (2-11); Neutrophils Absolute Auto 3.8 x10*3/uL (2.0-8.3); Neutrophils Percent Auto 50.4 % (45-73); Platelet Count 272 X10*3/uL (160-400); Red Blood Count 4.64 X10*6/uL (4.20-5.50); Red Cell Distribution Width 12.9 % (11.0-16.0); White Blood Count 7.5 X10*3/uL (4.8-10.8)
[2023-05-26 14:57] LABS: Alanine Aminotransferase 16 U/L (0-31); Albumin Level 4.4 g/dL (3.5-5.0); Alkaline Phosphatase 97 U/L (39-117); Anion Gap 14 (12-20); Aspartate Amino Transferase 17 U/L (5-31); Bilirubin Direct < 0.2 mg/dL (0.0-0.5); Bilirubin Total 0.2 mg/dL (0.0-1.0); Blood Urea Nitrogen 11 mg/dL (9-16); Calcium 9.8 mg/dL (8.4-10.2); Carbon Dioxide 26 mmol/L (22-29); Chloride 110 mmol/L (96-108); Creatinine Clr Calc Pharmacy 86.4; Estimated Glomerular Filt Rate > 60; Glucose Random 109 mg/dL (60-115); Lipase 25 U/L (8-78); Potassium 3.6 mmol/L (3.3-5.1); Sodium 146 mmol/L (135-145); Total Protein 7.8 g/dL (6.5-8.0)
--- NOTE | 2023-05-26 15:35 | PC.NURSE ---
c/o L. sided flank pain; hx kidney stones. pt denies dysuria/diarrhea; reports n/v. + bs x 4; no distention/tenderness. labs drawn. iv established. awaiting primary eval by ed provider.
[2023-05-26] MEDS: ondansetron HCL 4 MG/2 ML VIAL IVPUSH (15:44)
[2023-05-26] MEDS: Ketorolac Tromethamine 30 MG/ML VIAL IVPUSH (15:44)
[2023-05-26] MEDS: 0.9 % Sodium Chloride 1,000 ML 999 ML IV (15:45)
[2023-05-26 17:35] LABS: UPreg QC Valid YES; Urine Pregnancy NEGATIVE (NEGATIVE)
[2023-05-26 17:37] LABS: Appearance Urine Clear; Color Urine Yellow; Glucose Urine UA Negative (Negative); Leukocyte Esterase Urine Negative (Negative); Nitrite Urine Negative (Negative); UMIC TRIGGER UACC YES; Urine Blood Moderate (2+) (Negative); Urine Ketones Trace mg/dL (Negative); Urine Protein Negative (Neg-Trace)
[2023-05-26 17:40] LABS: Bacteria Urine None Seen (None Seen); Hyaline Casts Urine 0-2 /LPF (0-2); Squamous Epithelial Cell Urine 0-2 /HPF (0-2); WBC Urine 0-5 /HPF (0-5)
[2023-05-26] MEDS: Morphine Sulfate 2 MG/ML CARTRIDGE IVPUSH (19:34)
[2023-05-26 19:41] VITALS: BP 138/93; PULSE 77; RESP 18; O2SAT 100
== END 2023-05-26 19:59 | disposition home or self-care (01) ==
PROVIDERS: Physician Assistant; Emergency Provider Emergency Medicine
DX: N20.1 Calculus of ureter (principal); R10.2 Pelvic and perineal pain; Z87.891 Personal history of nicotine dependence; Z79.899 Other long term (current) drug therapy
CPT/HCPCS: 36415; 74176; 80048; 80076; 81001; 81025; 83690; 83735; 85025; 99285; J1885; J2270; J2405

== ENCOUNTER 2023-06-23 14:21 | Outpatient (AMB) | payer OTHER, SELFPAY ==
--- NOTE | 2023-06-23 14:22 | MHC.OFFVIS ---
Intake Intake Visit Reasons: ER follow up- Ureteral Stone Intake Note: Patient presents today for a follow-up on Urethral Stone: Meds- Tamsulosin & Prednisone Allergies to Antibiotic- No Known Allergies Blood Thinner- None Printed Circuit Board Panels Trimmer Required: Yes Printed Circuit Board Panels Trimmer Language: Human Resources Operations Coordinator Name: Terri CohenNAVNEET/YADIRA PORTILLO Information Interpreted: non-clinical & clinical Accompanied by: Self / Same As Patient Allergies No Known Allergies Allergy (Verified 06/23/23 14:23) HPI HPI Comments History of Present Illness Details Román is a 48-year-old female who presents today to the office for a follow-up. 06/23/2023? She is followed today for?recent ED visit for left flank pain due to left ureteral stone. She has seen Kelly Santa in ER on 05/26/2023 for left sided flank pain. She has a history of kidney stones.? Patient has passed a stone and she has brought it to the office. She states that she passed the stone twice in this year. She was last seen by me on 03/26/2023 for bilateral kidney stones. The patient was educated to consume adequate amount fluids at that time. Renal US after 11 months was ordered, and she was advised to follow-up after 1 year during that time. I reviewed the CT of the abdomen/pelvis results from 05/26/2023 revealed 3 mm mid left ureteric calculus with mild mid left hydroureter and hydronephrosis. Nonobstructing 1 to 2 mm bilateral renal calculi. In review of CAT scan of the abdomen/pelvis from 11/30/2022 revealed that she had obstruction on the right side, and 1 to 2 mm right distal stone noted. During the discussion with the patient today, I reviewed the 24-hour urine collection results from 02/2023 revealed that she had low urine output, and low urine citrate. 06/23/2023: Evaluation UA? Leukocytes: negative; blood: negative. Review of charts: Last visit: 03/26/23-- The patient states she consumed less fluids during the time of 24-hour urine collection test. Discussed 24 hour urine results--Collected on 03/01/23-- Total volume 570 mL, Calcium 51 mg; Oxalate 13 mg, Sodium 56, Citrate 202 mg. Instructed on importance of fluid intake, Low oxalate diet, low sodium diet. Renal US--12/07/22-- Kidneys WNL, no renal calculi visualized. CTAP results reviewed-- 1-2 mm right distal ureteral stone with small bilateral renal stones. Review of chart: Office visit-- 12/18/22 She was here with her daughter with flank pain, h/o kidney stones she was in the ED 12/07/22 due to flank pain disc imaging- B/L small kidney stones about 2mm, no hydronephrosis She was started on Ceftin 250 mg bid by the ED, Exam - bilateral flank tenderness on palpation. Plan disc'd on 12/18/22 was to continue Abx - increase Ceftin 500mg bid to treat possible pyelo, restart flomax, dilaudid 2 mg prn #8, fu next week, increase fluids 12/23/22--The patient states the pain is improved. She has one more day of Antibiotics. I have reviewed diet plan for kidney stone prevention, (increase fluids, low oxalate, low Na)pamphlet given Evaluation today: UA blood neg. Plan - follow kidney stone prevention diet discussed, 24 hr urine, fu in 3 months. 06/23/2023: Plan: Will send the stone for analysis. Potassium citrate 15 mEq BID was ordered. Discussed to increase the fluid intake 48-64 ounces. PFSH Medical History ULICES on CPAP Fibromyalgia DM type 2 (diabetes mellitus, type 2) Surgical History Hx of cholecystectomy Family History Mother Breast cancer Father Arthritis Diabetes Daughter Obese Scoliosis Social History Are you a primary director critical care to a significant other at home: No Do you presently have visiting nurse or other home services: No Alcohol intake: never Patient Tobacco Use Status: Former Tobacco user Quit Date: 6 months ago Tobacco use type: Cigarette Second Hand Smoke Exposure: Yes service: No Current occupational status: unemployed Review of Systems Const All systems reviewed & are unremarkable except as noted in HPI and below Reports no additional complaints Eyes Reports no additional complaints ENT Reports no additional complaints Card Denies dyspnea Resp Denies cough and Denies dyspnea GI Reports no additional complaints Reports no additional complaints Musc Reports no additional complaints Skin/Breast Denies rash and Denies unusual bruising Neuro Reports no additional complaints Psych Reports no additional complaints Endo Reports no additional complaints Dayday/Lymph Reports no additional complaints Aller/Immun Reports no additional complaints Physical Exam Const General: cooperative, healthy appearing and no acute distress Orientation/consciousness: patient oriented x3 HEENT Head: Yes normal to inspection, Yes normocephalic and Yes atraumatic Eyes Conjunctivae: conjunctivae normal Neck Neck: Yes normal visual inspection and Yes trachea midline Chest Chest palpation & inspection: normal inspection of the chest Resp Effort & Inspection: normal respiratory effort Cardio Rate: regular rate GI Inspection: Yes normal to inspection Skin General skin exam: no rashes or lesions noted Neuro General: patient oriented x3 Extrem General: No edema Psych Appearance: grossly normal Results AMB Urinalysis, Automated UA Leukoctes 0 [place]/uL Last Edit by Terri Cohen [facility] on 06/23/23 14:57 UA Nitrite Negative Last Edit by Terri Cohen [facility] on 06/23/23 14:57 UA Urobilinogen 0.2 mg/dL Last Edit by Terri Cohen [facility] on 06/23/23 14:57 UA Protein 0 mg/dL Last Edit by Terri Cohen [facility] on 06/23/23 14:57 UA pH 6.0 Last Edit by Terri Cohen [facility] on 06/23/23 14:57 UA Blood 0 [place]/uL Last Edit by Terri Cohen [facility] on 06/23/23 14:57 UA Specific [place] 1.030 Last Edit by Terri Cohen [facility] on 06/23/23 14:57 UA Ketone Negative Last Edit by Terri Cohen [facility] on 06/23/23 14:57 UA Bilirubin 0 mg/dL Last Edit by Terri Cohen [facility] on 06/23/23 14:57 UA Glucose 0 mg/dL Last Edit by Terri Cohen [facility] on 06/23/23 14:57 Results Reviewed Results Reviewed: Laboratory Last Values Urine pH (Auto) 6.0 09/13/23 14:56 Specific [place] (Auto) 1.030 06/23/23 14:56 Urine Protein (Auto) 0 mg/dL 06/23/23 14:56 Glucose (UA)(Auto) 0 mg/dL 06/23/23 14:56 Urine Ketones (Auto) Negative 06/23/23 14:56 Urine Blood (Auto) 0 [place]/uL 06/23/23 14:56 Urine Nitrite (Auto) Negative 06/23/23 14:56 Urine Bilirubin (Auto) 0 mg/dL 06/23/23 14:56 Urine Urobilinogen (Auto) 0.2 mg/dL 06/23/23 14:56 Leukocyte Esterase (Auto) 0 [place]/uL 06/23/23 14:56 Date of Service: 05/26/23 EXAMINATION: CT ABDOMEN AND PELVIS WITHOUT CONTRAST?? CLINICAL INFORMATION: Abdominal pain.?? COMPARISON: 11/30/2022 FINDINGS: LUNG BASES: The visualized lung bases are unremarkable.?? LIVER, GALLBLADDER, AND BILIARY TREE: The liver is normal in size, shape, and attenuation. No focal hepatic lesion or biliary ductal dilatation is present. There has been a prior cholecystectomy.?? PANCREAS: Unremarkable.?? SPLEEN: Unremarkable.?? ADRENAL GLANDS: Unremarkable.?? KIDNEYS AND URETERS: The kidneys are normal in size and configuration. There are scattered bilateral 1-2 mm calculi. There is mild left hydronephrosis and proximal left hydroureter to the level of a 3 mm mid left ureteric calculus.?? BLADDER: Unremarkable.?? GASTROINTESTINAL TRACT: There is prior gastric sleeve procedure. There are no dilated loops of bowel.?? ABDOMINAL WALL: No significant hernia is appreciated.?? LYMPH NODES: Normal. VASCULAR: Unremarkable. PELVIC VISCERA: Unremarkable.?? OSSEOUS STRUCTURES: There is stable mild diffuse thoracolumbar disc degenerative change. There is a stable sclerotic density within the T12 vertebral body. IMPRESSION: 1. 3 mm mid left ureteric calculus with mild mid left hydroureter and hydronephrosis.? 2. Nonobstructing 1 to 2 mm bilateral renal calculi. Assessment & Plan Assessment & Plan (1) Bilateral kidney stones: Code(s): N20.0 - Calculus of kidney (2) Ureteral calculus, left: Code(s): N20.1 - Calculus of ureter Plan Will send the stone for analysis. Potassium citrate 15 mEq BID was ordered. Discussed to increase the fluid intake 48-64 ounces. Orders: Orders AMB Urinalysis Automated 06/23/23 Z13.9 - Encounter for screening, unspecified Surgical 06/23/23 N20.0 - Calculus of kidney Medications: New potassium citrate ER 15 mEq PO BID 60 tabs 7RF for kidney stones Patient Instructions: The patient had an opportunity to ask questions regarding treatment plan. All questions were answered. Imaging, Laboratory studies and physical exam results were discussed and reviewed in detail. No major barriers to understanding were identified. The patient expressed understanding and agreement with the above treatment plan.? ? ? The patient is aware they should contact our office by phone for worsening of their current condition or the appearance of new symptoms. Compliance is encouraged with any medications and followup testing that is ordered.? ? ? It is a privilege to be allowed the opportunity to participate in the urologic care of your patient. If you have any questions or concerns regarding treatment for the above conditions please do not hesitate to contact me. The office telephone contact is [phone].? ? ? This note is constructed in part using voice recognition software. While every effort has been made to ensure accuracy inspector coated fabrics errors may have been included.? ? ? Yours sincerely,? ? ? Kailey Bingham MD? ? ? Coding Level of Care Code Est Pt Level 4 (74750) Diagnoses Bilateral kidney stones N20.0 Ureteral calculus, left N20.1
[2023-06-30 14:59] LABS: Stone Source KIDNEY STONE
== END 2023-06-23 14:54 | disposition home or self-care (01) ==
PROVIDERS: Visit Provider Urology
DX: N20.2 Calculus of kidney with calculus of ureter (principal)
CPT/HCPCS: 99214

== ENCOUNTER → 2023-06-23 14:21 | Outpatient (BNVA) | payer OTHER, SELFPAY | PROVIDERS: Visit Provider Urology | DX: N20.0 Calculus of kidney (principal); N20.1 Calculus of ureter | CPT/HCPCS: 81003; 82365; 88300; 99212 ==

== ENCOUNTER 2023-07-17 21:46 | Emergency (ER) | payer OTHER, SELFPAY ==
[2023-07-17 21:50] VITALS: BP 114/69; PULSE 76; RESP 18; TEMP 36; O2SAT 97; BMI 27.3
--- NOTE | 2023-07-17 23:36 | ED.HA ---
HPI - Headache General Chief Complaint: Headache Stated Complaint: Migraine Time Seen by Provider: 07/17/23 23:27 Source: patient Mode of arrival: ambulatory Limitations: no limitations History of Present Illness HPI Narrative: Patient comes emergency room complaining of a headache, intermittent for several days. Patient states she is dizzy, explained dizziness as not feeling quite right, patient denies any loss of balance, no spinning. Related Data Previous Rx's Medication Instructions Recorded ketoconazole 2 % topical cream 1 appl topical BID #60 grams 09/11/22 acetaminophen 500 mg tablet 500 mg PO Q6H PRN fever or pain 11/30/22 (Tylenol Extra Strength) #14 tabs ondansetron HCl 4 mg tablet 4 mg PO Q6H PRN nausea and 05/26/23 vomiting #10 tabs hydromorphone 2 mg tablet 2 mg PO Q8H PRN pain #8 tabs 06/02/23 (Dilaudid) prednisone 20 mg tablet 20 mg PO DAILY 3 days #3 tabs 06/02/23 tamsulosin 0.4 mg capsule (Flomax) 0.4 mg PO DAILY #20 caps 06/02/23 potassium citrate 15 mEq (1,620 15 meq PO BID for kidney stones 06/23/23 mg) tablet,extended release #60 tabs ketorolac 10 mg tablet 10 mg PO TID PRN pain 5 days #10 07/18/23 tabs metoclopramide HCl 5 mg tablet 5 mg PO .B.i.d. PRN nausea and 07/18/23 (Reglan) vomiting #10 tabs Allergies Allergy/AdvReac Type Severity Reaction Status Date / Time No Known Allergies Allergy Verified 07/17/23 21:50 Review of Systems Review of Systems: Constitutional : No Weight loss, No Fever, No Chills, No Night Sweats, No Fatigue, No Malaise ENT/Mouth : No Hearing loss, No Ear Pain, No Nasal Congestion, No Sinus Pain, No Hoarseness, No sore throat, No Rhinorrhea, No Swallowing Difficulty Eyes: No Eye Pain, No Swelling, No Redness, No Foreign Body, No Discharge, No Vision Changes Cardiovascular : No Chest Pain, No SOB, No Dyspnea on Exertion, No Orthopnea, No Edema, No Palpitations Respiratory : No Cough, No Sputum, No Wheezing, No Smoke Exposure, No Dyspnea Gastrointestinal : No Nausea, No Vomiting, No Diarrhea, No Constipation, No abdominal Pain, No Hematochezia, No Melena Genitourinary : no irregular bleeding, No Dysuria, No Urinary Frequency, No Hematuria, No Urinary Incontinence, No Urgency, No Flank Pain, No Urinary Flow Changes, No Hesitancy Musculoskeletal : No joint pain, No Myalgias, No Joint Swelling Skin : No Skin Lesions, No rash Neuro : No Weakness, No Numbness, No Paresthesias, No Loss of Consciousness, No Dizziness, complaining of Headache Psych : No Anxiety/Panic, No Depression, No SI/HI/AH/VH, No Social Issues, Heme/Lymph: No Bruising, No Bleeding,No Lymphadenopathy Endocrine : No Polyuria, No Polydipsia, No Temperature Intolerance [facility] Past Medical History Medical History ULICES on CPAP Fibromyalgia DM type 2 (diabetes mellitus, type 2) Surgical History Hx of cholecystectomy Family History Family History Mother Breast cancer Father Arthritis Diabetes Daughter Obese Scoliosis Social History Social History Are you a primary child care cook to a significant other at home: No Do you presently have visiting nurse or other home services: No Alcohol intake: never Patient Tobacco Use Status: Former Tobacco user Quit Date: 6 months ago Tobacco use type: Cigarette Second Hand Smoke Exposure: Yes Advance Directives: No Advance Directives Information Provided: No service: No Current occupational status: unemployed Physical Exam Vital Signs: Vital Signs: Last Vital Signs Temp 96.8 F 07/17/23 21:50 Pulse 88 07/17/23 23:52 Resp 16 07/17/23 23:52 BP 114/69 07/17/23 21:50 Pulse Ox 98 07/17/23 23:52 O2 Del Method Room Air 07/17/23 23:52 BMI result Body Mass Index 27.3 Const: Other: Appearance: Alert. Oriented X3. No acute distress. Well appearing, talking on the phone, lights on without photophobia Eyes: Pupils equal, round and reactive to light. ENT: Pharynx normal. Neck: Normal inspection. Neck supple. No lymph nodes noted. No crepitus CVS: Normal heart rate and rhythm. Pulses normal. Normal S1 and S2 Respiratory: No respiratory distress. Breath sounds normal. No Wheezing. No rales Abdomen: Soft and nontender. No rigidity. No distention. Skin: Skin warm and dry. Normal skin color. Normal skin turgor. Extremities: No lower extremity edema. No Lacerations. No Rash Neuro: Oriented X 3. No motor deficit. No sensory deficit. Moving all extremities. No slurred speech. CN 2 through 12 grossly intact Psych: calm, cooperative, normal affect Course Course Course Narrative: -patient is neurologically intact, normal gait -patient receiving IV fluids, Reglan, Benadryl, Toradol Medications Administered Discontinued Medications Generic Name Dose Route Start Last Admin Trade Name Freq PRN Reason Stop Dose Admin Diphenhydramine HCl 25 mg 07/17/23 23:35 07/17/23 23:43 Diphenhydramine Hcl 50 Mg/Ml Vial IVPUSH 07/17/23 23:36 25 mg ONCE ONE Administration Sodium Chloride 1,000 mls @ 999 mls/hr 07/17/23 23:35 07/18/23 00:50 Ns IVCONT 07/18/23 00:35 Infused .Q1H1M ONE Infusion Ketorolac Tromethamine 30 mg 07/17/23 23:35 07/17/23 23:43 Ketorolac Tromethamine 30 Mg/Ml Vial IVPUSH 07/17/23 23:36 30 mg ONCE ONE Administration Metoclopramide HCl 10 mg 07/17/23 23:35 07/17/23 23:43 Metoclopramide Hcl 10 Mg/2 Ml Vial IVPUSH 07/17/23 23:36 10 mg ONCE ONE Administration Medical Decision Making Medical Decision Making MDM Narrative: -after the above-mentioned medication and IV fluids, patient states that her headache nearly resolved, patient states completely back to baseline. Differential Diagnosis Differential Diagnoses: The differential diagnosis associated with the presentation includes (Tension headache, migraine headache, dehydration) Discharge Plan Discharge Clinical Impression: Headache, migraine Patient Disposition: Home, Self-Care Instructions: Migraine Headache (ED) Additional Instructions: Please follow-up with your primary care physician tomorrow. If you have any worsening or new symptoms, please return to the emergency room or call 911 Prescriptions: New ketorolac 10 mg tablet 10 mg PO TID PRN (Reason: pain) 5 Days Qty: 10 0RF metoclopramide HCl [Reglan] 5 mg tablet 5 mg PO .B.i.d. PRN (Reason: nausea and vomiting) Qty: 10 0RF No Action tamsulosin [Flomax] 0.4 mg capsule 0.4 mg PO DAILY Qty: 20 0RF prednisone 20 mg tablet 20 mg PO DAILY 3 Days Qty: 3 0RF hydromorphone [Dilaudid] 2 mg tablet 2 mg PO Q8H PRN (Reason: pain) Qty: 8 0RF Rx Instructions: Partial Fill upon patient request. acetaminophen [Tylenol Extra Strength] 500 mg tablet 500 mg PO Q6H PRN (Reason: fever or pain) Qty: 14 0RF ondansetron HCl 4 mg tablet 4 mg PO Q6H PRN (Reason: nausea and vomiting) Qty: 10 0RF ketoconazole 2 % cream 1 appl topical BID Qty: 60 0RF potassium citrate 15 mEq tablet extended release 15 meq PO BID Qty: 60 7RF
[2023-07-17 23:52] VITALS: PULSE 88; RESP 16; O2SAT 98
--- NOTE | 2023-07-17 23:56 | PC.NURSE ---
20g IV placed in RAC, fluids running and medications administered per DEC. Pt reports initial headache 9/10 pain. Now resting on stretcher, respirations even and unlabored, no apparent distress
== END 2023-07-18 01:34 | disposition home or self-care (01) ==
PROVIDERS: Emergency Provider Emergency Medicine
DX: G43.909 Migraine, unspecified, not intractable, without status migrainosus (principal); E11.9 Type 2 diabetes mellitus without complications; G47.33 Obstructive sleep apnea (adult) (pediatric); Z99.89 Dependence on other enabling machines and devices; Z87.891 Personal history of nicotine dependence; Z79.899 Other long term (current) drug therapy
CPT/HCPCS: 96361; 96374; 96375; 99284; J1200; J1885; J2765

== ENCOUNTER 2023-09-29 11:13 | Outpatient (AMB) | payer OTHER, SELFPAY ==
[2023-09-29 10:23] VITALS: BMI 28.1
--- NOTE | 2023-09-29 10:23 | A.OFFVIS_ITS ---
Intake VS Expanded 09/29/23 10:23 Height 5 ft 3 in Weight 158 lb 6 oz BMI 28.1 Body Fat % 23.2 Body Fat Mass 36.7 Fat Free Mass 121.8 Visceral Fat Rating 10 Body Water % 52.7 Body Water Mass 83.5 Muscle Mass/Score 114.4 Basal Metabolic Rate/Score 1,563 Intake Visit Reasons: (TV) PO LSG 05/26/22 Moisture Tester Required: No Allergies No Known Allergies Allergy (Verified 07/17/23 21:50) Medication List - Last Reconciled 09/29/23 by MARICHUY Hernandez acetaminophen (Tylenol Extra Strength) 500 mg PO Q6H PRN ketoconazole 2% 1 appl topical BID [level MVI PO DAILY] HPI HPI Comments History of Present Illness Details This?a?48?yo female who is s/p LSG without hiatal hernia repair on?05/26/[address] Mejia. Presents for 1 year 4 month post op visit. She was last seen in the office on 12/08/2022 with a weight of 164.6 lb and BMI of 29.1. Weight today is 158.6 pounds, with a BMI of 28.1.? There has been a 42 pound weight loss,(initial weight 200.6 pounds) since starting the program on 03/03/22 reflecting a 20.9% total body weight loss and a weight loss of 27 pounds since surgery (operative weight 185.6 pounds) reflecting a 14.5% TBWL since surgery.? No complaints of nausea, emesis, or reflux. c/o abdominal pain when she drinks too much and too quickly She states that she feels good, she was not seen in the office due to no follow up, she needed to change the appointment from in office to telephone. She also has been taking a MVI Present meal plan includes: 1 level protein shake (24 gm protein) 2 meal with 5 forks protein and 6 forks veg Drinking 48 oz water daily Exercise routine includes: 1 x per week [employer], swim for a n hour and cardio for 30-45 minutes, Any post op complications: none ULICES: resolved DM: never HTN: never Hyperlipidemia: never GERD:?0-5 scale ??0 = no symptoms ??1 = symptoms noticeable but not bothersome 2 =symptoms bothersome but not daily ? 3 = symptoms bothersome and daily 4 = symptoms affect daily activities 5 = symptoms are incapacitating, unable to do daily activities ? How bad is the heartburn: 0 ? Heartburn while lying down: 0 ? Heartburn when standing up: 0 ? Heartburn after meals: 0 ? Does heartburn change your diet: 0 ? Does heartburn wake you up from sleep: 0 ? Do you have difficulty swallowin ? Do you have pain with swallowin ? If you take medicine for your reflux, does this affect your daily life: 0 Satisfaction with present condition - satisfied or not satisfied: satisfied [facility] Medical History ULICES on CPAP Fibromyalgia DM type 2 (diabetes mellitus, type 2) Surgical History Hx of cholecystectomy Family History Mother Breast cancer Father Arthritis Diabetes Daughter Obese Scoliosis Social History Are you a primary interior plant caretaker to a significant other at home: No Do you presently have visiting nurse or other home services: No Alcohol intake: never Patient Tobacco Use Status: Former Tobacco user Quit Date: 6 months ago Tobacco use type: Cigarette Second Hand Smoke Exposure: Yes service: No Current occupational status: unemployed Review of Systems Const All systems reviewed & are unremarkable except as noted in HPI and below Assessment & Plan Assessment & Plan (1) Overweight (BMI 25.0-29.9): Code(s): E66.3 - Overweight Plan: Check 1 year labs Patient was strongly encouraged to resume exercise more than once a week as this will help her to achieve her stated goal of 145 lb weight. She has been encouraged to communicate weekly. Return to clinic in 4 weeks. Orders: Orders Insulin Today E66.3 - Overweight, E78.5 - Hyperlipidemia, unspecified, R73.03 - Prediabetes Complete Blood Count Auto Diff Today E66.3 - Overweight, E78.5 - Hyperlipidemia, unspecified, R73.03 - Prediabetes Vitamin B12 and Folate Today E66.3 - Overweight, E78.5 - Hyperlipidemia, unspecified, R73.03 - Prediabetes Zinc Today E66.3 - Overweight, E78.5 - Hyperlipidemia, unspecified, R73.03 - Prediabetes Vitamin B1 Today E66.3 - Overweight, E78.5 - Hyperlipidemia, unspecified, R73.03 - Prediabetes Vitamin A Today E66.3 - Overweight, E78.5 - Hyperlipidemia, unspecified, R73.03 - Prediabetes TSH reflex Free T4 Today E66.3 - Overweight, E78.5 - Hyperlipidemia, unspecified, R73.03 - Prediabetes Ferritin Today E66.3 - Overweight, E78.5 - Hyperlipidemia, unspecified, R73.03 - Prediabetes Vitamin D 25-OH Total Today E66.3 - Overweight, E78.5 - Hyperlipidemia, unspecified, R73.03 - Prediabetes Hemoglobin A1c Today E66.3 - Overweight, E78.5 - Hyperlipidemia, unspecified, R73.03 - Prediabetes Lipid Panel Today E66.3 - Overweight, E78.5 - Hyperlipidemia, unspecified, R73.03 - Prediabetes IRON PROFILE Today E66.3 - Overweight, E78.5 - Hyperlipidemia, unspecified, R73.03 - Prediabetes Comprehensive Met. Panel Today E66.3 - Overweight, E78.5 - Hyperlipidemia, unspecified, R73.03 - Prediabetes C Reactive Protein Today E66.3 - Overweight, E78.5 - Hyperlipidemia, unspecified, R73.03 - Prediabetes Telehealth Telehealth Location of provider rendering services: practice address Location of patient: address on file Patient Identification confirmed using: Name, : Yes Telehealth method: video Patient verbally consented to treatment: Yes Patient verbally consented to billing insurance company: Yes Patient informed of any privacy concerns related to visit: Yes Minutes spent on Phone/Video with Pt.: 15 Coding Level of Care Code Tele Est Pt Level 3 (22664) Diagnoses Overweight (BMI 25.0-29.9) E66.3 Time Spent (min) 20
== END 2023-09-29 11:15 | disposition home or self-care (01) ==
LOC: HO.HBS 11:13
PROVIDERS: PCP Nurse Practitioner; Visit Provider Physician Assistant Surgical
DX: E66.3 Overweight (principal)
CPT/HCPCS: 99213

== ENCOUNTER → 2023-09-29 11:13 | Outpatient (BNVA) | payer OTHER, SELFPAY | PROVIDERS: PCP Nurse Practitioner; Visit Provider Physician Assistant Surgical | DX: E66.3 Overweight (principal); E78.5 Hyperlipidemia, unspecified; R73.03 Prediabetes ==

== ENCOUNTER 2024-01-14 11:14 | Outpatient (REF) | payer OTHER, SELFPAY ==
[2024-01-14 11:47] LABS: MANUAL DIFF FLAG NO
[2024-01-14 12:43] LABS: Basophils Absolute Auto 0.1 X10*3/uL (0.0-0.2); Basophils Percent Auto 0.9 % (0-2); Eosinophils Absolute Auto 0.1 X10*3/uL (0.0-0.4); Eosinophils Percent Auto 1.1 % (0-4); Hematocrit 43.3 % (37.0-47.0); Hemoglobin 14.4 g/dl (12.0-16.0); Imm Gran Abs Auto 0.02 X10*3/uL (0.00-0.03); Imm Gran Pct Auto 0.3 % (0.0-0.4); Lymphocytes Absolute Auto 2.3 X10*3/uL (1.2-4.9); Lymphocytes Percent Auto 35.8 % (20-40); Mean Corpuscular HGB Conc 33.3 g/dl (31.0-35.0); Mean Corpuscular Hemoglobin 30.4 pg (27.0-33.0); Mean Corpuscular Volume 91.4 fL (80.0-98.0); Mean Platelet Volume 10.9 fL (9.4-12.3); Monocytes Absolute Auto 0.4 X10*3/uL (0.1-1.2); Monocytes Percent Auto 6.2 % (2-11); Neutrophils Absolute Auto 3.6 x10*3/uL (2.0-8.3); Neutrophils Percent Auto 55.7 % (45-73); Platelet Count 242 X10*3/uL (160-400); Red Blood Count 4.74 X10*6/uL (4.20-5.50); Red Cell Distribution Width 12.6 % (11.0-16.0); White Blood Count 6.5 X10*3/uL (4.8-10.8)
[2024-01-14 12:53] LABS: Estimated Average Glucose 103 mg/dL; Hemoglobin A1c % 5.2 % (<6.0)
[2024-01-14 13:48] LABS: Alanine Aminotransferase 23 U/L (0-31); Albumin Level 4.4 g/dL (3.5-5.0); Alkaline Phosphatase 88 U/L (39-117); Anion Gap 13 (12-20); Aspartate Amino Transferase 21 U/L (5-31); Bilirubin Total 0.5 mg/dL (0.0-1.0); Blood Urea Nitrogen 17 mg/dL (9-16); C Reactive Protein 0.25 mg/dL (< or = 0.50); Calcium 9.9 mg/dL (8.4-10.2); Carbon Dioxide 27 mmol/L (22-29); Chloride 106 mmol/L (96-108); Cholesterol 169 mg/dL (<200); Estimated Glomerular Filt Rate > 60; Glucose Random 83 mg/dL (60-115); HDL Cholesterol 59 mg/dL (>40); Iron 92 mcg/dL (30-160); LDL Cholesterol Calculated 98 mg/dL (<100); Percent Iron Saturation 28 % (15-50); Potassium 3.8 mmol/L (3.3-5.1); Sodium 142 mmol/L (135-145); Total Iron Binding Capacity 324 mcg/dL (228-428); Total Protein 7.7 g/dL (6.5-8.0); Triglycerides 61 mg/dL (<150); Unsaturated Iron Binding 232 ug/dL
[2024-01-14 14:03] LABS: Vitamin B12 1713 pg/mL (200-900)
[2024-01-14 14:07] LABS: Ferritin 49 ng/mL (10-250); Insulin 3 uU/mL (2-29); TSH reflex Free T4 0.61 uIU/mL (0.32-4.0); Vitamin D 25-OH Total 64.9 ng/mL (>30)
[2024-01-18 02:38] LABS: Zinc 79 mcg/dL (60-130)
[2024-01-19 12:17] LABS: Vitamin B1 22 nmol/L (8-30)
[2024-01-19 17:18] LABS: Vitamin A 50 mcg/dL (38-98)
== END 2024-01-14 11:15 | disposition home or self-care (01) ==
LOC: HO.LAB 11:14
PROVIDERS: Visit Provider Physician Assistant Surgical
DX: E66.3 Overweight (principal); E78.5 Hyperlipidemia, unspecified; R73.03 Prediabetes
CPT/HCPCS: 36415; 80053; 80061; 82306; 82607; 82728; 82746; 83036; 83525; 83540; 84425; 84443; 84590; 84630; 85025; 86140

== ENCOUNTER 2024-01-19 11:16 | Outpatient (AMB) | payer OTHER, SELFPAY ==
--- NOTE | 2024-01-19 11:24 | A.OFFVIS_ITS ---
Intake VS Expanded 01/19/24 11:32 BP 131/74 Blood Pressure Location Rt brachial Blood Pressure Position Sitting Pulse 72 Pulse Source Pulse Oximeter Temp 96.4 F L Temperature Source Temporal Artery Scan Pulse Oximetry 98 Oxygen Delivery Method Room Air Height 5 ft 2 in Weight 147 lb BMI 26.9 Body Fat % 36.2 Body Fat Mass 53.2 Fat Free Mass 93.6 Visceral Fat Rating 7.0 Body Water % 45.3 Body Water Mass 66.6 Muscle Mass/Score 88.8 Basal Metabolic Rate/Score 1,290 Intake Visit Reasons: (OV) PO LSG 05/26/22 [place] Required: No Allergies No Known Allergies Allergy (Verified 01/19/24 11:29) Medication List - Last Reconciled 01/19/24 by MARICHUY Hernandez ketoconazole 2% 1 appl topical BID [level MVI PO DAILY] HPI HPI Comments History of Present Illness Details This?a?48?yo female who is s/p LSG without hiatal hernia repair on?05/26/[address] Mejia. Presents for 1 year 8 month post op visit. Weight today is 147 pounds, with a BMI of 26.9.? There has been a 53.6 pound weight loss,(initial weight 200.6 pounds) since starting the program on 03/03/22 reflecting a 26.7% total body weight loss and a weight loss of 38.6 pounds since surgery (operative weight 185.6 pounds) reflecting a 20.7% TBWL since surgery.? No complaints of nausea, emesis, or reflux. c/o abdominal pain when she drinks too much and too quickly She states that she started a meal plan using Optivia supplements. She did this on her own accord. She states that she had been hungry but did not communicate with the office and tried a new meal plan using the supplements. She additionally states malodorous bowel movements and halitosis. She also has been taking a level and celebrate MVI Present meal plan includes: 1 Optavia protein shake (20 gm protein) optavia bar 11 gm 2 meal with 5 forks protein and 6 forks veg Drinking 48 oz water daily Exercise routine includes: 2 x per week [employer], swim for a n hour and cardio for 30-45 minutes, videos at home beachbody Any post op complications: none ULICES: resolved DM: never HTN: never Hyperlipidemia: never GERD:?0-5 scale ??0 = no symptoms ??1 = symptoms noticeable but not bothersome 2 =symptoms bothersome but not daily ? 3 = symptoms bothersome and daily 4 = symptoms affect daily activities 5 = symptoms are incapacitating, unable to do daily activities ? How bad is the heartburn: 0 ? Heartburn while lying down: 0 ? Heartburn when standing up: 0 ? Heartburn after meals: 0 ? Does heartburn change your diet: 0 ? Does heartburn wake you up from sleep: 0 ? Do you have difficulty swallowin ? Do you have pain with swallowin ? If you take medicine for your reflux, does this affect your daily life: 0 Satisfaction with present condition - satisfied or not satisfied: satisfied [facility] Medical History ULICES on CPAP Fibromyalgia DM type 2 (diabetes mellitus, type 2) Surgical History Status post sleeve gastrectomy Hx of cholecystectomy Family History Mother Breast cancer Father Arthritis Diabetes Daughter Obese Scoliosis Social History Are you a primary dog day care attendant to a significant other at home: No Do you presently have visiting nurse or other home services: No Alcohol intake: never Patient Tobacco Use Status: Former Tobacco user Quit Date: 6 months ago Tobacco use type: Cigarette Second Hand Smoke Exposure: Yes service: No Current occupational status: unemployed Physical Exam Const General: cooperative and no acute distress Orientation/consciousness: patient oriented x3 Resp Effort & Inspection: normal respiratory effort Auscultation: clear to auscultation bilaterally Cardio Rate: regular rate Rhythm: regular rhythm GI Inspection: Yes normal to inspection and Yes incision (well healed) Palpation (GI): Soft to palpation and no masses Neuro General: patient oriented x3 Assessment & Plan Assessment & Plan (1) Status post sleeve gastrectomy: Code(s): Z90.3 - Acquired absence of stomach [part of] Plan: Patient will change her meal plan to exclude the uptake via product line shakes. She has plenty of bars and would like to finish them. Shake allergy 1 scoop (16 gm protein) in 12 oz of water over 2 hours 2 meals with 5 forks of protein and 5 forks of vegetables Uptavia bar 11 gm if needed Labs look good. Remove level or celebrate multivitamin. She should not be taking both. Return to the office in 2 months Coding Level of Care Code Est Pt Level 3 (68583) Diagnoses Status post sleeve gastrectomy Z90.3
[2024-01-19 11:32] VITALS: BP 131/74; PULSE 72; TEMP 35.8; O2SAT 98; BMI 26.9
== END 2024-01-19 12:10 | disposition home or self-care (01) ==
PROVIDERS: PCP Nurse Practitioner; Visit Provider Physician Assistant Surgical
DX: E66.3 Overweight (principal); Z68.26 Body mass index [BMI] 26.0-26.9, adult; Z90.3 Acquired absence of stomach [part of]; Z98.84 Bariatric surgery status
CPT/HCPCS: 99213

== ENCOUNTER → 2024-01-19 11:16 | Outpatient (BNVA) | payer OTHER, SELFPAY | PROVIDERS: PCP Nurse Practitioner; Visit Provider Physician Assistant Surgical | DX: Z90.3 Acquired absence of stomach [part of] (principal) | CPT/HCPCS: 99212 ==

== ENCOUNTER 2024-01-26 10:52 | Outpatient (REF) | payer OTHER, SELFPAY ==
--- NOTE | ~2024-01-26 | US_ITS ---
EXAMINATION: US RETROPERITONEAL LIMITED (RENAL ONLY) CLINICAL INFORMATION: Calculus of kidney. COMPARISON: CT abdomen and pelvis 05/26/2023. Renal ultrasound 12/07/2022. Ultrasound abdomen complete with liver elastography 04/20/2022. TECHNIQUE: Real-time imaging of the kidneys. FINDINGS: RIGHT KIDNEY: 10.8 x 4.6 x 5.4 cm (SAG x AP x TRV). The kidney is normal in size, contour, and echogenicity. Renal cortical thickness is normal. No calculi or focal parenchymal lesions. No hydronephrosis. LEFT KIDNEY: 12.4 x 4.5 x 5.4 cm (SAG x AP x TRV). The kidney is normal in size, contour, and echogenicity. Renal cortical thickness is normal. No focal parenchymal lesions or hydronephrosis. 0.4 x 0.6 x 0.5 cm nonobstructing calculus is seen in the lower pole US/US renal BI IMPRESSION: 1. Normal appearance of the right kidney. 2. 0.6 cm nonobstructing calculus in the lower pole of the left kidney.
== END 2024-01-26 10:53 | disposition home or self-care (01) ==
LOC: HO.US 10:52
PROVIDERS: PCP Nurse Practitioner; Visit Provider Urology
DX: N20.0 Calculus of kidney (principal)
CPT/HCPCS: 76775

== ENCOUNTER 2024-03-24 10:21 | Outpatient (AMB) | payer OTHER, SELFPAY ==
--- NOTE | 2024-03-24 10:16 | A.OFFVIS_ITS ---
Intake Visit Reasons: BI Kidney stones-follow up/US Intake Note: Patient presents today for a follow-up on US RESULTS: Meds- Tamsulosin & Prednisone Allergies to Antibiotic- No Known Allergies Blood Thinner- None Accompanied by: Self / Same As Patient Allergies No Known Allergies Allergy (Verified 01/19/24 11:29) HPI Comments Details: Román is a 48-year-old female who presents today for telehealth visit, she stated she fell and fractured her ankle and is in a cast and it is difficult to get around as well as come in to the office for a follow-up. I reviewed renal ultrasound, 01/26/2024, Normal appearance of the right kidney. 6 mm nonobstructing calculus in the lower pole of the left kidney. I discussed that the CT imaging performed in 05/30/2023 there were punctate 1-2 mm bilateral kidney stones. The patient is currently asymptomatic. We will continue to monitor kidney stones. She has not been using the potassium citrate. I have discussed adding lemon to her water. Follow-up in 1 year renal ultrasound at that time. Review of charts: 06/23/2023? She is followed today for?recent ED visit for left flank pain due to left ureteral stone. She has seen Kelly Santa in ER on 05/26/2023 for left sided flank pain. She has a history of kidney stones.?Patient has passed a stone and she has brought it to the office. She states that she passed the stone twice in this year. She was last seen by me on 03/26/2023 for bilateral kidney stones. The patient was educated to consume adequate amount fluids at that time. Renal US after 11 months was ordered, and she was advised to follow-up after 1 year during that time. I reviewed the CT of the abdomen/pelvis results from 05/26/2023 revealed 3 mm mid left ureteric calculus with mild mid left hydroureter and hydronephrosis. Nonobstructing 1 to 2 mm bilateral renal calculi. In review of CAT scan of the abdomen/pelvis from 11/30/2022 revealed that she had obstruction on the right side, and 1 to 2 mm right distal stone noted. During the discussion with the patient today, I reviewed the 24-hour urine collection results from 02/2023 revealed that she had low urine output, and low urine citrate. Evaluation UA? Leukocytes: negative; blood: negative. Will send the stone for analysis. Potassium citrate 15 mEq BID was ordered. Discussed to increase the fluid intake 48-64 ounces. 03/26/23-- The patient states she consumed less fluids during the time of 24-hour urine collection test. Discussed 24 hour urine results--Collected on 03/01/23-- Total volume 570 mL, Calcium 51 mg; Oxalate 13 mg, Sodium 56, Citrate 202 mg. Instructed on importance of fluid intake, Low oxalate diet, low sodium diet. Renal US--12/07/22-- Kidneys WNL, no renal calculi visualized. CTAP results reviewed-- 1-2 mm right distal ureteral stone with small bilateral renal stones. 12/23/22--The patient states the pain is improved. She has one more day of Antibiotics. I have reviewed diet plan for kidney stone prevention, (increase fluids, low oxalate, low Na)pamphlet given Evaluation today: UA blood neg. Plan - follow kidney stone prevention diet discussed, 24 hr urine, fu in 3 months. 12/18/22 She was here with her daughter with flank pain, h/o kidney stones. she was in the ED 12/07/22 due to flank pain. disc imaging- B/L small kidney stones about 2mm, no hydronephrosis. She was started on Ceftin 250 mg bid by the ED, Exam - bilateral flank tenderness on palpation. Plan disc'd on 12/18/22 was to continue Abx - increase Ceftin 500mg bid to treat possible pyelo, restart flomax, dilaudid 2 mg prn #8, fu next week, increase fluids. [facility] Medical History ULICES on CPAP Fibromyalgia DM type 2 (diabetes mellitus, type 2) Surgical History Status post sleeve gastrectomy Hx of cholecystectomy Family History Mother Breast cancer Father Arthritis Diabetes Daughter Obese Scoliosis Social History Are you a primary care attendant to a significant other at home: No Do you presently have visiting nurse or other home services: No Alcohol intake: never Patient Tobacco Use Status: Former Tobacco user Tobacco use type: Cigarette Second Hand Smoke Exposure: Yes service: No Current occupational status: unemployed Review of Systems Const All systems reviewed & are unremarkable except as noted in HPI and below Reports no additional complaints Eyes Reports no additional complaints ENT Reports no additional complaints Card Reports no additional complaints Resp Reports no additional complaints GI Reports no additional complaints Reports as per HPI Musc Reports no additional complaints Skin/Breast Reports system reviewed and no additional complaints, except as documented Neuro Reports no additional complaints Psych Reports no additional complaints Endo Reports no additional complaints Dayday/Lymph Reports no additional complaints Aller/Immun Reports no additional complaints Telehealth Telehealth Telehealth Platform: [employer]Active Location of provider rendering services: practice address Location of patient: address on file Patient Identification confirmed using: Name, : Yes Telehealth method: video Patient verbally consented to treatment: Yes Patient verbally consented to billing insurance company: Yes Patient informed of any privacy concerns related to visit: Yes Results Reviewed Results Reviewed: Date of Service: 01/26/24 EXAMINATION: US RETROPERITONEAL LIMITED (RENAL ONLY) CLINICAL INFORMATION: Calculus of kidney. COMPARISON: CT abdomen and pelvis 05/26/2023. Renal ultrasound 12/07/2022. Ultrasound abdomen complete with liver elastography 04/20/2022. TECHNIQUE: Real-time imaging of the kidneys. FINDINGS: RIGHT KIDNEY: 10.8 x 4.6 x 5.4 cm (SAG x AP x TRV). The kidney is normal in size, contour, and echogenicity. Renal cortical thickness is normal. No calculi or focal parenchymal lesions. No hydronephrosis. LEFT KIDNEY: 12.4 x 4.5 x 5.4 cm (SAG x AP x TRV). The kidney is normal in size, contour, and echogenicity. Renal cortical thickness is normal. No focal parenchymal lesions or hydronephrosis. 0.4 x 0.6 x 0.5 cm nonobstructing calculus is seen in the lower pole IMPRESSION: 1. Normal appearance of the right kidney. 2. 0.6 cm nonobstructing calculus in the lower pole of the left kidney. Date of Service: 05/26/23 EXAMINATION: CT ABDOMEN AND PELVIS WITHOUT CONTRAST?? CLINICAL INFORMATION: Abdominal pain.?? COMPARISON: 11/30/2022 FINDINGS: LUNG BASES: The visualized lung bases are unremarkable.?? LIVER, GALLBLADDER, AND BILIARY TREE: The liver is normal in size, shape, and attenuation. No focal hepatic lesion or biliary ductal dilatation is present. There has been a prior cholecystectomy.?? PANCREAS: Unremarkable.?? SPLEEN: Unremarkable.?? ADRENAL GLANDS: Unremarkable.?? KIDNEYS AND URETERS: The kidneys are normal in size and configuration. There are scattered bilateral 1-2 mm calculi. There is mild left hydronephrosis and proximal left hydroureter to the level of a 3 mm mid left ureteric calculus.?? BLADDER: Unremarkable.?? GASTROINTESTINAL TRACT: There is prior gastric sleeve procedure. There are no dilated loops of bowel.?? ABDOMINAL WALL: No significant hernia is appreciated.?? LYMPH NODES: Normal. VASCULAR: Unremarkable. PELVIC VISCERA: Unremarkable.?? OSSEOUS STRUCTURES: There is stable mild diffuse thoracolumbar disc degenerative change. There is a stable sclerotic density within the T12 vertebral body. IMPRESSION: 1. 3 mm mid left ureteric calculus with mild mid left hydroureter and hydronephrosis.? 2. Nonobstructing 1 to 2 mm bilateral renal calculi. Assessment & Plan Assessment & Plan (1) Bilateral kidney stones: Code(s): N20.0 - Calculus of kidney Category: Medical Plan Follow-up in 1 year renal ultrasound at that time. Patient Instructions: The patient had an opportunity to ask questions regarding treatment plan. The patient expressed understanding and agreement with the above treatment plan. The patient is aware they should contact our office by phone for worsening of their current condition or the appearance of new symptoms. Compliance is encouraged with any medications and followup testing that is ordered. It is a privilege to be allowed the opportunity to participate in the urologic care of your patient. If you have any questions or concerns regarding treatment for the above conditions please do not hesitate to contact me. The office telephone contact is [phone]. This note is constructed in part using voice recognition software. While every effort has been made to ensure accuracy dump grounds checker errors may have been included. Yours sincerely, Kailey Bingham MD Coding Level of Care Code Tele Est Pt Level 3 (38212) Diagnoses Bilateral kidney stones N20.0
== END 2024-03-24 16:30 | disposition home or self-care (01) ==
LOC: HO.HUSH 10:21
PROVIDERS: PCP Nurse Practitioner; Visit Provider Urology
DX: N20.0 Calculus of kidney (principal)
CPT/HCPCS: 99213

== ENCOUNTER → 2024-03-24 10:21 | Outpatient (BNVA) | payer OTHER, SELFPAY | PROVIDERS: PCP Nurse Practitioner; Visit Provider Urology ==

== ENCOUNTER 2024-05-12 11:35 | Outpatient (AMB) | payer OTHER, SELFPAY ==
--- NOTE | 2024-05-12 11:39 | A.OFFVIS_ITS ---
VS Expanded 05/12/24 11:50 BP 111/68 Blood Pressure Location Rt brachial Blood Pressure Position Sitting Pulse 72 Pulse Source Pulse Oximeter Temp 96.9 F Temperature Source Tympanic Pulse Oximetry 98 Oxygen Delivery Method Room Air Height 5 ft 2 in Weight 141 lb 9.6 oz BMI 25.9 Body Fat % 33.0 Body Fat Mass 46.8 Fat Free Mass 94.8 Visceral Fat Rating 6.0 Body Water % 47.5 Body Water Mass 67.2 Muscle Mass/Score 90.0 Basal Metabolic Rate/Score 1,292 Intake Visit Reasons: (OV) PO LSG 05/26/22 [place] Required: No Allergies No Known Allergies Allergy (Verified 05/12/24 11:56) Medication List - Last Reconciled 05/12/24 by MARICHUY Hernandez clotrimazole 1% (Antifungal (clotrimazole)) 1 appl topical BID [level MVI PO DAILY] HPI Comments Details: This?a?48?yo female who is s/p LSG without hiatal hernia repair on?05/26/[address] Mejia. Presents for 2 year post op visit. Weight today is 141.6 pounds, with a BMI of 25.9.? There has been a 59 pound weight loss,(initial weight 200.6 pounds) since starting the program on 03/03/22 reflecting a 29.4% total body weight loss and a weight loss of 44 pounds since surgery (operative weight 185.6 pounds) reflecting a 23.7% TBWL since surgery.? No complaints of nausea, emesis, or reflux. c/o abdominal pain when she drinks too much and too quickly She states that she is overall doing fairly well. She is complaining of excess skin of her abdomen. We prescribed clotrimazole at her last visit. This has been effective although she does have recurrent rashes. She has had 3 in the last 4 months. She does have resolution between exacerbations after she uses the antifungal cream. She additionally reports increased pain in the lower abdomen at the skin level at the time of her rashes. She also has been taking a level and celebrate MVI Present meal plan includes: 1 Optavia protein shake (20 gm protein) or shakeology 1 scoop (17 gm), or celebrate 4 in 1 2 scoops (25 gm) 2 meal with 5 forks protein and 6 forks veg Drinking 48 oz water daily Exercise routine includes: 3 x per week [employer], swim for an hour and cardio for 30-45 minutes, videos at home beach[employer] Any post op complications: none ULICES: resolved DM: never HTN: never Hyperlipidemia: never GERD:?0-5 scale ??0 = no symptoms ??1 = symptoms noticeable but not bothersome 2 =symptoms bothersome but not daily ? 3 = symptoms bothersome and daily 4 = symptoms affect daily activities 5 = symptoms are incapacitating, unable to do daily activities ? How bad is the heartburn: 0 ? Heartburn while lying down: 0 ? Heartburn when standing up: 0 ? Heartburn after meals: 0 ? Does heartburn change your diet: 0 ? Does heartburn wake you up from sleep: 0 ? Do you have difficulty swallowin ? Do you have pain with swallowin ? If you take medicine for your reflux, does this affect your daily life: 0 Satisfaction with present condition - satisfied or not satisfied: satisfied [facility] Medical History ULICES on CPAP Fibromyalgia DM type 2 (diabetes mellitus, type 2) Surgical History Status post sleeve gastrectomy Hx of cholecystectomy Family History Mother Breast cancer Father Arthritis Diabetes Daughter Obese Scoliosis Social History Are you a primary career developer to a significant other at home: No Do you presently have visiting nurse or other home services: No Alcohol intake: never Patient Tobacco Use Status: Former Tobacco user Tobacco use type: Cigarette Second Hand Smoke Exposure: Yes service: No Current occupational status: unemployed Physical Exam Vital Signs: Last Vital Signs Temp 96.9 F 05/12/24 11:50 Pulse 72 05/12/24 11:50 BP 111/68 05/12/24 11:50 Pulse Ox 98 05/12/24 11:50 Oxygen Delivery Method Room Air 05/12/24 11:50 BMI result Body Mass Index 25.9 Const General: healthy appearing and no acute distress Resp Effort & Inspection: normal respiratory effort Auscultation: clear to auscultation bilaterally Cardio Rate: regular rate Rhythm: regular rhythm GI Auscultation: normal bowel sounds Skin Other: Pannus grade 2 without active rash although stigmata of previous rash by way of slight erythema within the crease below the pannus. Extrem General: Yes normal to inspection Assessment & Plan Assessment & Plan (1) Status post sleeve gastrectomy: Code(s): Z90.3 - Acquired absence of stomach [part of] Category: Surgical Plan: Recommend she decrease her celebrate 4 in 1 to 1.5 scoops if she uses that product. Continue 6 forks protein 6 forks vegetables x2. Encouraged increasing days of the gym to 5 with a goal of burning approximately 400 calories per day. She had recent lab work through her primary care physician without significant abnormality except elevated B12. (2) Excess skin: Code(s): L98.7 - Excessive and redundant skin and subcutaneous tissue Category: Medical Plan: Grade 2 pannus with evidence of recurrence rash. She additionally has odor and pain in the area when she does have recurrence of the rash. She certainly would benefit from medically necessary panniculectomy for skin removal surgery. We will have her return to the office in 6 weeks to ensure stability of her weight. Consideration for submission at that time.
[2024-05-12 11:50] VITALS: BP 111/68; PULSE 72; TEMP 36.1; O2SAT 98; BMI 25.9
== END 2024-05-12 12:50 | disposition home or self-care (01) ==
PROVIDERS: PCP Nurse Practitioner; Visit Provider Physician Assistant Surgical
DX: L98.7 Excessive and redundant skin and subcutaneous tissue (principal); Z68.25 Body mass index [BMI] 25.0-25.9, adult; Z90.3 Acquired absence of stomach [part of]; Z98.84 Bariatric surgery status
CPT/HCPCS: 99213

== ENCOUNTER → 2024-05-12 11:35 | Outpatient (BNVA) | payer OTHER, SELFPAY | PROVIDERS: PCP Nurse Practitioner; Visit Provider Physician Assistant Surgical | DX: Z98.84 Bariatric surgery status (principal); Z90.3 Acquired absence of stomach [part of] | CPT/HCPCS: 99212 ==

== ENCOUNTER 2024-06-10 11:10 | Emergency (ER) | payer OTHER, SELFPAY ==
--- NOTE | ~2024-06-10 | CT_ITS ---
EXAMINATION: CT ABDOMEN AND PELVIS WITHOUT CONTRAST CLINICAL INFORMATION: Right-sided flank pain. COMPARISON: Renal ultrasound from 01/26/2004. CT abdomen and pelvis from 05/26/2023.. TECHNIQUE: Multidetector volumetric imaging was performed from the lung bases to the pubic without contrast. Sagittal and coronal reformatted images were obtained on the technologist workstation. This CT examination was performed using dose optimization techniques as appropriate, variously including the following: *Automated exposure control. *Adjustment of mA and/or kV according to patient size (this includes techniques or standardized protocols for targeted exams where dose is matched to indication/reason for exam; i.e. extremities or head). *Use of iterative reconstruction technique. DLP: 434 mGy-cm FINDINGS: LUNG BASES: Minimal bilateral dependent atelectasis. Otherwise, no abnormalities of the visualized lung bases. No demonstrated abnormalities of the visualized cardiac structures. ABDOMEN/PELVIS: Liver, Biliary Ducts, and Gallbladder: The unenhanced liver is normal in size and attenuation without focal hepatic lesions or biliary ductal dilatation. Changes of prior cholecystectomy. Pancreas: The pancreas is normal in appearance. Adrenal Glands: The adrenal glands are normal in appearance. Spleen: The spleen is normal in appearance. Kidneys and Ureters: The unenhanced kidneys are normal in size. Moderate right-sided hydronephrosis. There appears to be a 0.25 cm right-sided ureteral stone at the pelvic inlet (415 Hounsfield units). Multiple additional bilateral nonobstructive renal stones (up to 818 Hounsfield units). No left-sided hydronephrosis, ureterolithiasis comment or hydroureter. Urinary Bladder: The urinary bladder is partially distended without focal wall thickening. No bladder calculi are demonstrated. Gastrointestinal System: Changes of prior bariatric surgery. The small bowel is of normal caliber. Moderate sigmoid diverticulosis. Otherwise, the colon is normal in appearance without focal wall thickening or pericolonic inflammatory change. Normal appendix. Genitourinary: Redemonstrated abnormal adnexal soft tissue lesions. Intra-abdominal and Retroperitoneal Spaces: No intra-abdominal free fluid collections or gas. No mesenteric, retroperitoneal, or inguinal lymphadenopathy. VASCULATURE: Abdominal aorta is of normal contour and caliber. MUSCULOSKELETAL: Mild multilevel degenerative changes of the spine. No lytic or sclerotic osseous lesions demonstrated. No soft tissue masses demonstrated. CT/CT abdomen pelvis wo IV con IMPRESSION: 1. Moderate right-sided hydronephrosis. There appears to be a 0.25 cm right-sided ureteral stone at the pelvic inlet. 2. Multiple additional nonobstructive renal stones. 3. Diverticulosis without evidence of diverticulitis. Electronically signed by: Chad Estrada DO 06/10/2024 02:14 PM EDT
--- NOTE | 2024-06-10 11:15 | ED.ABDPAIN ---
HPI - Abdominal Pain General Chief Complaint: Abdominal Pain Stated Complaint: kidney stone Time Seen by Provider: 06/10/24 11:36 Source: patient and old records reviewed Mode of arrival: ambulatory Limitations: no limitations History of Present Illness ED Provider: tip HPI narrative: Patient is a 48-year-old female with history of renal calculi, fibromyalgia, T2 DM, status post sleeve gastrectomy, cholecystectomy presenting to the emergency department with complaint of right flank pain, nausea and vomiting since early this morning. States pain feels similar to previous episodes of renal colic. Denies fever. Denies diarrhea or constipation. Denies dysuria, hematuria or other urinary symptoms. MD elicited complaint: flank pain Pertinent past history: kidney stones Onset (ago): hour(s) Pain Consistency: constant Location: R flank Severity: severe Pain scale (0-10): 10 Quality: sharp Radiation: RLQ Associated symptoms: nausea and vomiting Related Data Home Medications ?Medication ?Instructions ?Recorded ?Confirmed level MVI PO DAILY 09/29/23 05/12/24 Previous Rx's ?Medication ?Instructions ?Recorded clotrimazole 1 % topical cream 1 appl topical BID #45 grams 04/26/24 (Antifungal (clotrimazole)) ondansetron 4 mg disintegrating 4 mg PO Q8H PRN nausea and 06/10/24 tablet vomiting #9 tabs oxycodone 5 mg tablet 5 mg PO Q8H PRN severe pain (scale 06/10/24 score 7-10) #8 tabs prednisone 20 mg tablet 20 mg PO DAILY #5 tabs 06/10/24 tamsulosin 0.4 mg capsule 0.4 mg PO DAILY #14 caps 06/10/24 Allergies Allergy/AdvReac Type Severity Reaction Status Date / Time No Known Allergies Allergy Verified 06/10/24 11:23 Review of Systems Review of Systems As per HPI. Yes all other systems are reviewed and are negative Constitutional: Reports as per HPI PMFSH Past Medical History Medical History ULICES on CPAP Fibromyalgia DM type 2 (diabetes mellitus, type 2) Surgical History Status post sleeve gastrectomy Hx of cholecystectomy Family History Family History Mother Breast cancer Father Arthritis Diabetes Daughter Obese Scoliosis Social History Social History Are you a primary floor care specialist to a significant other at home: No Do you presently have visiting nurse or other home services: No Alcohol intake: never Patient Tobacco Use Status: Former Tobacco user Tobacco use type: Cigarette Second Hand Smoke Exposure: Yes Advance Directives: No Advance Directives Information Provided: Yes Do you have a plan to hurt others: No Plan Patient : No service: No Current occupational status: unemployed Physical Exam ED Vital Signs: Vital Signs - 24 hr 06/10/24 11:22 06/10/24 14:45 Temperature 97.1 F 97.5 F Pulse Rate 75 74 Respiratory Rate 16 16 Blood Pressure 150/100 H 121/67 Pulse Oximetry 99 98 Oxygen Delivery Method Room Air Room Air BMI result Body Mass Index 25.7 Vital signs have been reviewed and appear to be correct. Blood pressure elevated. Heart rate normal. Respiratory rate normal. Temperature normal. Oxygen saturation normal. Const General: cooperative, healthy appearing and no acute distress Orientation/consciousness: oriented to person, oriented to place, oriented to time and patient oriented x3 Limitations: no limitations HENMT Head: Yes normocephalic and Yes atraumatic Ears: external ears normal General nose exam: Normal external nose present Face and sinus: Yes face symmetric Mouth: oropharynx normal and moist mucous membranes Throat: Yes uvula midline Eyes Pupils: Equal, round and reactive pupils present Neck Neck: Yes normal visual inspection and Yes supple Resp Effort & Inspection: normal respiratory effort and able to speak in complete sentences Auscultation: clear to auscultation bilaterally Cardio Rate: regular rate Rhythm: regular rhythm Heart sounds: S1 normal heart sound present and S2 normal heart sound present GI Palpation (GI): Soft to palpation and nontender Auscultation: normoactive bowel sounds General: Yes CVA tenderness on the right Back/Spine/Pelvis Back: CVA tenderness Skin General skin exam: elasticity normal and turgor normal Neuro General: oriented to person, oriented to place, oriented to time, patient oriented x3, moves all extremities, no focal motor deficits and CN's II-XI intact bilaterally Cranial nerves: Yes Equal, round and reactive pupils present Cognition (Neuro): normal cognition Extrem General: Yes full ROM, Yes no pedal edema and Yes no calf tenderness Psych Mental Status: mental status grossly normal Affect: normal affect Thought process: Normal thought process present Course Course Course Narrative: This is an RME performed by Jossie Esposito CNP: Additional HPI, ROS, PE not included below will be deferred to primary provider. Patient is a 48-year-old female who presents emergency department for evaluation of right flank pain and nausea since this morning, believes this to be secondary to kidney stone. Denies urinary symptoms. She has been followed by Urology, Dr. Bingham Plan: labs, urinalysis Medical Decision Making Medical Decision Making MDM Narrative: Patient is a 48-year-old female with history of renal calculi, fibromyalgia, T2 DM, status post sleeve gastrectomy, cholecystectomy presenting to the emergency department with complaint of right flank pain, nausea and vomiting since early this morning. On exam patient is awake, A+Ox3, BP elevated, VS otherwise WNL, afebrile, normal neurological exam without focal deficits, physical exam findings as above. Given reported symptoms and physical exam findings, initial differential includes renal colic, renal/ureteral calculi, UTI/pyelonephritis. Labs notable for no leukocytosis, no anemia, no significant electrolyte abnormalities, no evidence of KARTHIK, negative HCG. CT A/P notable for moderate right-sided hydronephrosis with 2.5 mm right-sided ureteral stone at pelvic inlet. My interpretation is in agreement with the radiologist's interpretation. Patient updated on results and all questions answered. Given history of sleeve gastrectomy, will discharge patient home on ondansetron, tamsulosin, Differential Diagnosis Differential Diagnoses: The differential diagnosis associated with the presentation includes As per MDM. Admission/Observation Consideration of admission/observation: Escalation of care including admission/observation considered Lab Data [facility] Lab Attestation statement: I reviewed the patient's lab results. As per MDM. 06/10/24 11:34 06/10/24 11:34 Labs: Lab Results 06/10/24 06/10/24 Range/Units 11:34 11:41 WBC 8.1 (4.8-10.8) X10*3/uL RBC 4.45 (4.20-5.50) X10*6/uL Hgb 13.7 (12.0-16.0) g/dl Hct 41.2 (37.0-47.0) % MCV 92.6 (80.0-98.0) fL MCH 30.8 (27.0-33.0) pg MCHC 33.3 (31.0-35.0) g/dl RDW 12.6 (11.0-16.0) % Plt Count 270 (160-400) X10*3/uL MPV 9.7 (9.4-12.3) fL Immature Gran % (Auto) 0.4 (0.0-0.4) % Neut % (Auto) 51.8 (45-73) % Lymph % (Auto) 39.4 (20-40) % Cowley % (Auto) 6.6 (2-11) % Eos % (Auto) 1.1 (0-4) % Baso % (Auto) 0.7 (0-2) % Lymph # (Auto) 3.2 (1.2-4.9) X10*3/uL Cowley # (Auto) 0.5 (0.1-1.2) X10*3/uL Eos # (Auto) 0.1 (0.0-0.4) X10*3/uL Baso # (Auto) 0.1 (0.0-0.2) X10*3/uL Abs Immat Gran (auto) 0.03 (0.00-0.03) X10*3/uL Absolute Neuts (auto) 4.2 (2.0-8.3) x10*3/uL Absolute Nucleated RBC 0.000 (0.0-0.012) X10*3/uL Nucleated RBC % (auto) 0.0 (0.0-0.2) /100WBC Sodium 142 (135-145) mmol/L Potassium 3.6 (3.3-5.1) mmol/L Chloride 105 (96-108) mmol/L Carbon Dioxide 27 (22-29) mmol/L Anion Gap 14 (12-20) BUN 15 (9-16) mg/dL Creatinine 0.72 (0.5-1.4) mg/dL Estim Creat Clear Calc 85.2 Estimated GFR > 60 Random Glucose 134 H (60-115) mg/dL Calcium 9.8 (8.4-10.2) mg/dL Total Bilirubin 0.4 (0.0-1.0) mg/dL AST 17 (5-31) U/L ALT 15 (0-31) U/L Alkaline Phosphatase 95 (39-117) U/L Total Protein 7.5 (6.5-8.0) g/dL Albumin 4.4 (3.5-5.0) g/dL Beta HCG, Quant 3 mIU/mL Urine Color Dark Yellow Urine Appearance Clear Urine pH 5.5 (5.0-9.0) Ur Specific [place] 1.025 (1.005-1.025) Urine Protein Negative (Neg-Trace) mg/dL Urine Glucose (UA) Negative (Negative) mg/dL Urine Ketones Negative (Negative) mg/dL Urine Blood Negative (Negative) Urine Nitrite Negative (Negative) Ur Leukocyte Esterase Trace H (Negative) Urine RBC 0-2 (0-2) /HPF Urine WBC 0-5 (0-5) /HPF Ur Squamous Epith Cells 0-2 (0-2) /HPF Urine Bacteria None Seen (None Seen) Hyaline Casts 0-2 (0-2) /LPF Independent Interpretation I performed an independent interpretation of an: CT Scan Interpretation: CT abdomen pelvis notable for moderate right-sided hydronephrosis with 2.5 mm right-sided ureteral stone at pelvic inlet. Radiology Impression Discussion of test interpretation with radiology: I have reviewed the radiologist's reading. Radiologist Impression: CT/CT abdomen pelvis wo IV con IMPRESSION: 1. Moderate right-sided hydronephrosis. There appears to be a 0.25 cm right-sided ureteral stone at the pelvic inlet. 2. Multiple additional nonobstructive renal stones. 3. Diverticulosis without evidence of diverticulitis. External Record Review External record reviewed: Inpatient record, Office record and Outpatient record Prescription Management I considered prescription management with: Pain Medication and Other Medications Administered Generic Name Dose Route Start Last Admin Trade Name Freq PRN Reason Stop Dose Admin Sodium Chloride 1,000 mls @ 999 mls/hr 06/10/24 14:45 06/10/24 14:56 Ns IV 06/10/24 15:45 999 mls/hr .Q1H1M DERIC Administration Discontinued Medications Generic Name Dose Route Start Last Admin Trade Name Freq PRN Reason Stop Dose Admin Hydromorphone HCl 1 mg 06/10/24 12:32 06/10/24 12:39 Hydromorphone Hcl 1 Mg/Ml Syringe IVPUSH 06/10/24 12:33 1 mg ONCE ONE Administration Protocol Sodium Chloride 1,000 mls @ 999 mls/hr 06/10/24 11:45 06/10/24 13:06 Ns IV 06/10/24 12:45 Infused .Q1H1M DERIC Infusion Ketorolac Tromethamine 15 mg 06/10/24 12:49 06/10/24 12:58 Ketorolac Tromethamine 15 Mg/Ml Vial IVPUSH 06/10/24 12:50 15 mg ONCE ONE Administration Morphine Sulfate 4 mg 06/10/24 11:44 06/10/24 11:57 Morphine Sulfate 4 Mg/Ml Cartridge IVPUSH 06/10/24 11:45 4 mg ONCE ONE Administration Protocol Ondansetron HCl 4 mg 06/10/24 11:44 06/10/24 11:57 Ondansetron Hcl 4 Mg/2 Ml Vial IVPUSH 06/10/24 11:45 4 mg ONCE ONE Administration Ondansetron HCl 4 mg 06/10/24 14:38 06/10/24 14:56 Ondansetron Hcl 4 Mg/2 Ml Vial IVPUSH 06/10/24 14:39 4 mg ONCE ONE Administration Discharge Plan Discharge Clinical Impression: Calculus of right ureter Patient Disposition: Home, Self-Care Instructions: Low Oxalate Diet (ED), How to Strain Your Urine (ED), Ureteral Stones (ED) Additional Instructions: You were evaluated in the emergency department for flank pain. Your CT scan showed evidence of a stone in your right ureter. The stone is 2.5 mm which most likely will pass on its own. Your are being provided with a urine strainer to use at home, instructions are included in your discharge paperwork. You are being prescribed a short course of prednisone and decrease inflammation, tamsulosin to allow the stone to pass more easily, and oxycodone as needed for severe pain. You are being prescribed ondansetron which you can use every 8 hours as needed for nausea. You are being referred to Urology, please call them 1st thing Wednesday morning for an appointment this week. Return to the emergency department if you develop worsening pain, persistent vomiting, fever 100.4? or greater, inability to urinate, or any other concerning symptoms. Prescriptions: New ondansetron 4 mg tablet,disintegrating 4 mg PO Q8H PRN (Reason: nausea and vomiting) Qty: 9 0RF oxycodone 5 mg tablet 5 mg PO Q8H PRN (Reason: severe pain (scale score 7-10)) Qty: 8 0RF Rx Instructions: Partial Fill upon patient request. tamsulosin 0.4 mg capsule 0.4 mg PO DAILY Qty: 14 0RF prednisone 20 mg tablet 20 mg PO DAILY Qty: 5 0RF No Action clotrimazole [Antifungal (clotrimazole)] 1 % cream 1 appl topical BID Qty: 45 2RF level MVI PO DAILY Stand Alone Forms: Work/School Release Print Language: Choose Not To Answer
[2024-06-10 11:22] VITALS: BP 150/100; PULSE 75; RESP 16; TEMP 36.2; O2SAT 99; BMI 25.7
[2024-06-10 11:38] LABS: MANUAL DIFF FLAG NO
[2024-06-10 11:40] LABS: Basophils Absolute Auto 0.1 X10*3/uL (0.0-0.2); Basophils Percent Auto 0.7 % (0-2); Eosinophils Absolute Auto 0.1 X10*3/uL (0.0-0.4); Eosinophils Percent Auto 1.1 % (0-4); Hematocrit 41.2 % (37.0-47.0); Hemoglobin 13.7 g/dl (12.0-16.0); Imm Gran Abs Auto 0.03 X10*3/uL (0.00-0.03); Imm Gran Pct Auto 0.4 % (0.0-0.4); Lymphocytes Absolute Auto 3.2 X10*3/uL (1.2-4.9); Lymphocytes Percent Auto 39.4 % (20-40); Mean Corpuscular HGB Conc 33.3 g/dl (31.0-35.0); Mean Corpuscular Hemoglobin 30.8 pg (27.0-33.0); Mean Corpuscular Volume 92.6 fL (80.0-98.0); Mean Platelet Volume 9.7 fL (9.4-12.3); Monocytes Absolute Auto 0.5 X10*3/uL (0.1-1.2); Monocytes Percent Auto 6.6 % (2-11); Neutrophils Absolute Auto 4.2 x10*3/uL (2.0-8.3); Neutrophils Percent Auto 51.8 % (45-73); Platelet Count 270 X10*3/uL (160-400); Red Blood Count 4.45 X10*6/uL (4.20-5.50); Red Cell Distribution Width 12.6 % (11.0-16.0); White Blood Count 8.1 X10*3/uL (4.8-10.8)
[2024-06-10 11:50] LABS: Appearance Urine Clear; Color Urine Dark Yellow; Glucose Urine UA Negative (Negative); Leukocyte Esterase Urine Trace (Negative); Nitrite Urine Negative (Negative); PH 5.5 (5.0-9.0); Specific Gravity - Urine 1.025 (1.005-1.025); UMIC TRIGGER UACC YES; Urine Blood Negative (Negative); Urine Ketones Negative (Negative); Urine Protein Negative (Neg-Trace)
[2024-06-10 11:55] LABS: Alanine Aminotransferase 15 U/L (0-31); Albumin Level 4.4 g/dL (3.5-5.0); Alkaline Phosphatase 95 U/L (39-117); Anion Gap 14 (12-20); Aspartate Amino Transferase 17 U/L (5-31); Bilirubin Total 0.4 mg/dL (0.0-1.0); Blood Urea Nitrogen 15 mg/dL (9-16); Calcium 9.8 mg/dL (8.4-10.2); Carbon Dioxide 27 mmol/L (22-29); Chloride 105 mmol/L (96-108); Creatinine Clr Calc Pharmacy 85.2; Estimated Glomerular Filt Rate > 60; Glucose Random 134 mg/dL (60-115); Potassium 3.6 mmol/L (3.3-5.1); Sodium 142 mmol/L (135-145); Total Protein 7.5 g/dL (6.5-8.0)
[2024-06-10] MEDS: 0.9 % Sodium Chloride 1,000 ML 999 ML IV ×2 (11:57→14:56)
[2024-06-10] MEDS: Morphine Sulfate 4 MG/ML CARTRIDGE IVPUSH (11:57)
[2024-06-10] MEDS: ondansetron HCL 4 MG/2 ML VIAL IVPUSH ×2 (11:57→14:56)
[2024-06-10 11:58] LABS: Bacteria Urine None Seen (None Seen); Hyaline Casts Urine 0-2 /LPF (0-2); RBC Urine 0-2 /HPF (0-2); Squamous Epithelial Cell Urine 0-2 /HPF (0-2); WBC Urine 0-5 /HPF (0-5)
[2024-06-10] MEDS: HYDROmorphone HCl 1 MG/ML SYRINGE IVPUSH (12:39)
[2024-06-10 12:41] LABS: HCG Quantitative 3 mIU/mL
[2024-06-10] MEDS: Ketorolac Tromethamine 15 MG/ML VIAL IVPUSH (12:58)
[2024-06-10 14:45] VITALS: BP 121/67; PULSE 74; RESP 16; TEMP 36.4; O2SAT 98
[2024-06-10 15:57] VITALS: BP 121/67; PULSE 74; RESP 16; TEMP 36.4; O2SAT 98
[2024-06-10] MEDS: oxyCODONE HCl Immed Release 5 MG TABLET PO (16:01)
== END 2024-06-10 16:08 | disposition home or self-care (01) ==
PROVIDERS: Nurse Practitioner Family; Registered Nurse Emergency; Emergency Provider Emergency Medicine; PCP Nurse Practitioner
DX: N13.2 Hydronephrosis with renal and ureteral calculous obstruction (principal); R10.9 Unspecified abdominal pain; E11.9 Type 2 diabetes mellitus without complications; Z79.899 Other long term (current) drug therapy
CPT/HCPCS: 36415; 74176; 80053; 81001; 84702; 85025; 96361; 96374; 96375; 96376; 99284; 99285; J1170; J1885; J2270; J2405

== ENCOUNTER 2024-06-22 13:52 | Outpatient (AMB) | payer OTHER, SELFPAY ==
--- NOTE | 2024-06-22 13:48 | MHC.OFFVIS ---
Intake Visit Reasons: ureteral stone Intake Note: Patient is present for ureteral stone Urology Medication:tamsulosin, oxycodone Antibiotic Allergy:none Blood Thinner:none Bench Carpenter Required: No Allergies No Known Allergies Allergy (Verified 06/22/24 13:49) Medication List - Last Reconciled 06/22/24 by Kailey Bingham MD clotrimazole 1% (Antifungal (clotrimazole)) 1 appl topical BID [level MVI PO DAILY] ondansetron 4 mg PO Q8H PRN oxycodone 5 mg PO Q6-8H PRN prednisone 20 mg PO DAILY tamsulosin 0.4 mg PO DAILY HPI Comments Details: 06/22/24--Román presents for telehealth visit-video. She was in the emergency room a week ago with right flank pain. I reviewed CTAP right hydronephrosis with a 2.5 mm ureteral stone. The patient has been straining her urine and has not passed the stone and continues to have pain. I have discussed cystoscopy ureteroscopy with laser. Will check renal ultrasound prior. Review of charts: 03/24/24--Román is a 48-year-old female who presents today for telehealth visit, she stated she fell and fractured her ankle and is in a cast and it is difficult to get around as well as come in to the office for a follow-up. I reviewed renal ultrasound, 01/26/2024, Normal appearance of the right kidney. 6 mm nonobstructing calculus in the lower pole of the left kidney. I discussed that the CT imaging performed in 05/30/2023 there were punctate 1-2 mm bilateral kidney stones. The patient is currently asymptomatic. We will continue to monitor kidney stones. She has not been using the potassium citrate. I have discussed adding lemon to her water. Follow-up in 1 year renal ultrasound at that time. 06/23/2023? She is followed today for?recent ED visit for left flank pain due to left ureteral stone. She has seen Kelly Santa in ER on 05/26/2023 for left sided flank pain. She has a history of kidney stones.?Patient has passed a stone and she has brought it to the office. She states that she passed the stone twice in this year. She was last seen by me on 03/26/2023 for bilateral kidney stones. The patient was educated to consume adequate amount fluids at that time. Renal US after 11 months was ordered, and she was advised to follow-up after 1 year during that time. I reviewed the CT of the abdomen/pelvis results from 05/26/2023 revealed 3 mm mid left ureteric calculus with mild mid left hydroureter and hydronephrosis. Nonobstructing 1 to 2 mm bilateral renal calculi. In review of CAT scan of the abdomen/pelvis from 11/30/2022 revealed that she had obstruction on the right side, and 1 to 2 mm right distal stone noted. During the discussion with the patient today, I reviewed the 24-hour urine collection results from 02/2023 revealed that she had low urine output, and low urine citrate. Evaluation UA? Leukocytes: negative; blood: negative. Will send the stone for analysis. Potassium citrate 15 mEq BID was ordered. Discussed to increase the fluid intake 48-64 ounces. 03/26/23-- The patient states she consumed less fluids during the time of 24-hour urine collection test. Discussed 24 hour urine results--Collected on 03/01/23-- Total volume 570 mL, Calcium 51 mg; Oxalate 13 mg, Sodium 56, Citrate 202 mg. Instructed on importance of fluid intake, Low oxalate diet, low sodium diet. Renal US--12/07/22-- Kidneys WNL, no renal calculi visualized. CTAP results reviewed-- 1-2 mm right distal ureteral stone with small bilateral renal stones. 12/23/22--The patient states the pain is improved. She has one more day of Antibiotics. I have reviewed diet plan for kidney stone prevention, (increase fluids, low oxalate, low Na)pamphlet given Evaluation today: UA blood neg. Plan - follow kidney stone prevention diet discussed, 24 hr urine, fu in 3 months. 12/18/22 She was here with her daughter with flank pain, h/o kidney stones. she was in the ED 12/07/22 due to flank pain. disc imaging- B/L small kidney stones about 2mm, no hydronephrosis. She was started on Ceftin 250 mg bid by the ED, Exam - bilateral flank tenderness on palpation. Plan disc'd on 12/18/22 was to continue Abx - increase Ceftin 500mg bid to treat possible pyelo, restart flomax, dilaudid 2 mg prn #8, fu next week, increase fluids. PFSH Medical History ULICES on CPAP Fibromyalgia DM type 2 (diabetes mellitus, type 2) Surgical History Status post sleeve gastrectomy Hx of cholecystectomy Family History Mother Breast cancer Father Arthritis Diabetes Daughter Obese Scoliosis Social History Are you a primary field care manager to a significant other at home: No Do you presently have visiting nurse or other home services: No Alcohol intake: never Patient Tobacco Use Status: Former Tobacco user Tobacco use type: Cigarette Second Hand Smoke Exposure: Yes service: No Current occupational status: unemployed Review of Systems Const All systems reviewed & are unremarkable except as noted in HPI and below Reports no additional complaints Eyes Reports no additional complaints ENT Reports no additional complaints Card Reports no additional complaints Resp Reports no additional complaints GI Reports no additional complaints Reports as per HPI Musc Reports no additional complaints Skin/Breast Reports system reviewed and no additional complaints, except as documented Neuro Reports no additional complaints Psych Reports no additional complaints Endo Reports no additional complaints Dayday/Lymph Reports no additional complaints Aller/Immun Reports no additional complaints Telehealth Telehealth Telehealth Platform: [facility] Location of provider rendering services: practice address Location of patient: address on file Patient Identification confirmed using: Name, : Yes Telehealth method: video Patient verbally consented to treatment: Yes Patient verbally consented to billing insurance company: Yes Patient informed of any privacy concerns related to visit: Yes Results Reviewed Results Reviewed: Date of Service: 06/10/24 CT ABDOMEN AND PELVIS WITHOUT CONTRAST CLINICAL INFORMATION: Right-sided flank pain. COMPARISON: Renal ultrasound from 01/26/2004. CT abdomen and pelvis from 05/26/2023.. TECHNIQUE: Multidetector volumetric imaging was performed from the lung bases to the pubic without contrast. Sagittal and coronal reformatted images were obtained on the technologist workstation. This CT examination was performed using dose optimization techniques as appropriate, variously including the following: *Automated exposure control. *Adjustment of mA and/or kV according to patient size (this includes techniques or standardized protocols for targeted exams where dose is matched to indication/reason for exam; i.e. extremities or head). *Use of iterative reconstruction technique. DLP: 434 mGy-cm FINDINGS: LUNG BASES: Minimal bilateral dependent atelectasis. Otherwise, no abnormalities of the visualized lung bases. No demonstrated abnormalities of the visualized cardiac structures. ABDOMEN/PELVIS: Liver, Biliary Ducts, and Gallbladder: The unenhanced liver is normal in size and attenuation without focal hepatic lesions or biliary ductal dilatation. Changes of prior cholecystectomy. Pancreas: The pancreas is normal in appearance. Adrenal Glands: The adrenal glands are normal in appearance. Spleen: The spleen is normal in appearance. Kidneys and Ureters: The unenhanced kidneys are normal in size. Moderate right-sided hydronephrosis. There appears to be a 0.25 cm right-sided ureteral stone at the pelvic inlet (415 Hounsfield units). Multiple additional bilateral nonobstructive renal stones (up to 818 Hounsfield units). No left-sided hydronephrosis, ureterolithiasis comment or hydroureter. Urinary Bladder: The urinary bladder is partially distended without focal wall thickening. No bladder calculi are demonstrated. Gastrointestinal System: Changes of prior bariatric surgery. The small bowel is of normal caliber. Moderate sigmoid diverticulosis. Otherwise, the colon is normal in appearance without focal wall thickening or pericolonic inflammatory change. Normal appendix. Genitourinary: Redemonstrated abnormal adnexal soft tissue lesions. Intra-abdominal and Retroperitoneal Spaces: No intra-abdominal free fluid collections or gas. No mesenteric, retroperitoneal, or inguinal lymphadenopathy. VASCULATURE: Abdominal aorta is of normal contour and caliber. MUSCULOSKELETAL: Mild multilevel degenerative changes of the spine. No lytic or sclerotic osseous lesions demonstrated. No soft tissue masses demonstrated. IMPRESSION: 1. Moderate right-sided hydronephrosis. There appears to be a 0.25 cm right-sided ureteral stone at the pelvic inlet. 2. Multiple additional nonobstructive renal stones. 3. Diverticulosis without evidence of diverticulitis. Assessment & Plan Assessment & Plan (1) Bilateral kidney stones: Code(s): N20.0 - Calculus of kidney Category: Medical (2) Hydronephrosis, right: Code(s): N13.30 - Unspecified hydronephrosis Category: Medical (3) Ureterolithiasis: Code(s): N20.1 - Calculus of ureter Category: Medical (4) Flank pain: Code(s): R10.9 - Unspecified abdominal pain Category: Medical Plan I reviewed CTAP right hydronephrosis with a 2.5 mm ureteral stone. The patient has been straining her urine and has not passed the stone and continues to have pain. I have discussed cystoscopy ureteroscopy with laser. Will check renal ultrasound prior. Orders: Orders US retroperitoneal comp Today N13.30 - Unspecified hydronephrosis, N20.1 - Calculus of ureter, R10.9 - Unspecified abdominal pain Patient Instructions: The patient had an opportunity to ask questions regarding treatment plan. The patient expressed understanding and agreement with the above treatment plan. The patient is aware they should contact our office by phone for worsening of their current condition or the appearance of new symptoms. Compliance is encouraged with any medications and followup testing that is ordered. It is a privilege to be allowed the opportunity to participate in the urologic care of your patient. If you have any questions or concerns regarding treatment for the above conditions please do not hesitate to contact me. The office telephone contact is [phone]. This note is constructed in part using voice recognition software. While every effort has been made to ensure accuracy fluoroscope operator errors may have been included. Yours sincerely, Kailey Bingham MD Coding Level of Care Code Tele Est Pt Level 4 (56314) Diagnoses Bilateral kidney stones N20.0 Hydronephrosis, right N13.30 Ureterolithiasis N20.1 Flank pain R10.9
== END 2024-06-22 14:15 | disposition home or self-care (01) ==
LOC: HO.HUSH 13:52
PROVIDERS: PCP Nurse Practitioner; Visit Provider Urology
DX: N20.0 Calculus of kidney (principal); N13.30 Unspecified hydronephrosis; N20.1 Calculus of ureter; R10.9 Unspecified abdominal pain
CPT/HCPCS: 99214

== ENCOUNTER → 2024-06-22 13:52 | Outpatient (BNVA) | payer OTHER, SELFPAY | PROVIDERS: PCP Nurse Practitioner; Visit Provider Urology ==

== ENCOUNTER 2024-06-23 10:07 | Outpatient (REF) | payer OTHER, SELFPAY ==
--- NOTE | ~2024-06-23 | US_ITS ---
EXAMINATION: US RETROPERITONEAL COMPLETE (RENAL) CLINICAL INFORMATION: Abdominal pain. COMPARISON: CT abdomen/pelvis 06/10/2024. TECHNIQUE: Real-time imaging of the kidneys and bladder. FINDINGS: RIGHT KIDNEY: 10.4 x 6.1 x 4.9 cm (SAG x AP x TRV). The kidney is normal in size, contour, and echogenicity. Renal cortical thickness is normal. No calculi or focal parenchymal lesions. No hydronephrosis. LEFT KIDNEY: 11.7 x 4.9 x 4.4 cm (SAG x AP x TRV). The kidney is normal in size, contour, and echogenicity. Renal cortical thickness is normal. No focal parenchymal lesions or hydronephrosis. There are 2 nonobstructive calculi measuring 0.5 cm in the lower pole. BLADDER: Well distended and normal. Bilateral ureteral jets are demonstrated. Prevoid bladder volume is 454 mL. Postvoid bladder volume is 3 mL. US/US retroperitoneal comp IMPRESSION: Nonobstructive left-sided renal calculi. Electronically signed by: Jazzmine Lorenzo MD 06/23/2024 12:34 PM EDT
== END 2024-06-23 10:08 | disposition home or self-care (01) ==
LOC: HO.US 10:07
PROVIDERS: Visit Provider Urology
DX: R10.9 Unspecified abdominal pain (principal); N13.30 Unspecified hydronephrosis; N20.1 Calculus of ureter
CPT/HCPCS: 76770

== ENCOUNTER 2024-06-27 02:59 | Emergency (ER) | payer OTHER, SELFPAY ==
--- NOTE | ~2024-06-27 | CT_ITS ---
EXAMINATION: CT ABDOMEN AND PELVIS WITHOUT CONTRAST CLINICAL INFORMATION: Left flank pain. COMPARISON: June 10, 2024 TECHNIQUE: Multidetector volumetric imaging was performed from the superior aspect of the liver through the pubic symphysis. Sagittal and coronal reformatted images were obtained on the technologist's workstation. This CT examination was performed using dose optimization techniques as appropriate, variously including the following: *Automated exposure control *Adjustment of mA and/or kV according to patient size (this includes techniques or standardized protocols for targeted exams where dose is matched to indication/reason for exam; i.e. extremities or head) *Use of iterative reconstruction technique DLP: 512 mGy-cm FINDINGS: LUNG BASES: The visualized lung bases are unremarkable. LIVER, GALLBLADDER, AND BILIARY TREE: The liver is normal in size, shape, and attenuation. No focal hepatic lesion or biliary ductal dilatation is present. There has been a prior cholecystectomy. PANCREAS: Unremarkable. SPLEEN: Unremarkable. ADRENAL GLANDS: Unremarkable. KIDNEYS AND URETERS: The kidneys are normal in size, shape, and attenuation. There are scattered bilateral 1 mm renal calculi. There is mild left hydronephrosis and hydroureter to the level of a 3 mm mid left ureteric calculus. BLADDER: Unremarkable. GASTROINTESTINAL TRACT: There are diverticula of the sigmoid colon without diverticulitis. The appendix is visualized and is within normal limits. ABDOMINAL WALL: No significant hernia is appreciated. LYMPH NODES: Normal. VASCULAR: Unremarkable. PELVIC VISCERA: Unremarkable. OSSEOUS STRUCTURES: Unremarkable. CT/CT abdomen pelvis wo IV con IMPRESSION: No significant abnormality. Fleischner guidelines were followed. Electronically signed by: Ashish Jay MD 06/27/2024 05:42 AM EDT
[2024-06-27 03:03] VITALS: BP 136/85; PULSE 72; RESP 16; TEMP 36.4; O2SAT 100; BMI 23.9
--- NOTE | 2024-06-27 03:16 | PC.NURSE ---
Pt a&ox4, no sign of distress Pt reports 07/20 left flank pain, n/v x2 since 99. Pt reports she was supposed to have surgery today but the xray she had on wednesday showed thay she had passed the stone. Plan of care ongoing.
[2024-06-27 03:30] LABS: MANUAL DIFF FLAG NO
[2024-06-27 03:31] LABS: Basophils Absolute Auto 0.1 X10*3/uL (0.0-0.2); Basophils Percent Auto 0.9 % (0-2); Eosinophils Absolute Auto 0.1 X10*3/uL (0.0-0.4); Eosinophils Percent Auto 1.7 % (0-4); Hematocrit 38.6 % (37.0-47.0); Hemoglobin 12.9 g/dl (12.0-16.0); Imm Gran Abs Auto 0.02 X10*3/uL (0.00-0.03); Imm Gran Pct Auto 0.3 % (0.0-0.4); Lymphocytes Absolute Auto 2.9 X10*3/uL (1.2-4.9); Lymphocytes Percent Auto 36.8 % (20-40); Mean Corpuscular HGB Conc 33.4 g/dl (31.0-35.0); Mean Corpuscular Hemoglobin 30.9 pg (27.0-33.0); Mean Corpuscular Volume 92.3 fL (80.0-98.0); Mean Platelet Volume 9.3 fL (9.4-12.3); Monocytes Absolute Auto 0.5 X10*3/uL (0.1-1.2); Monocytes Percent Auto 6.6 % (2-11); Neutrophils Absolute Auto 4.2 x10*3/uL (2.0-8.3); Neutrophils Percent Auto 53.7 % (45-73); Platelet Count 234 X10*3/uL (160-400); Red Blood Count 4.18 X10*6/uL (4.20-5.50); Red Cell Distribution Width 12.6 % (11.0-16.0); White Blood Count 7.8 X10*3/uL (4.8-10.8)
[2024-06-27] MEDS: Ketorolac Tromethamine 30 MG/ML VIAL IVPUSH (03:34)
[2024-06-27] MEDS: ondansetron HCL 4 MG/2 ML VIAL IVPUSH ×2 (03:34→07:52)
--- NOTE | 2024-06-27 03:37 | PC.NURSE ---
Pt medicated per dec. Pt with CT plan of care ongoing.
[2024-06-27] MEDS: 0.9 % Sodium Chloride 1,000 ML 250 ML IVCONT (03:43)
[2024-06-27 03:44] LABS: Anion Gap 15 (12-20); Blood Urea Nitrogen 18 mg/dL (9-16); Calcium 9.4 mg/dL (8.4-10.2); Carbon Dioxide 25 mmol/L (22-29); Chloride 107 mmol/L (96-108); Creatinine Clr Calc Pharmacy 86.5; Estimated Glomerular Filt Rate > 60; Glucose Random 149 mg/dL (60-115); Potassium 3.5 mmol/L (3.3-5.1); Sodium 143 mmol/L (135-145)
--- NOTE | 2024-06-27 03:51 | PC.NURSE ---
Pt back from CT Call whyte placed within pts reach Plan of care ongoing.
--- NOTE | 2024-06-27 04:08 | ED.GENADULT ---
HPI - General Adult General Chief complaint: General Medical Stated complaint: kidney stone Time Seen by Provider: 06/27/24 03:16 Source: patient Mode of arrival: ambulatory Limitations: no limitations History of Present Illness ED Provider: Dr. Swan HPI narrative: During the past 3 weeks patient has been dealing with right renal colic. She was found to have a 2.5mm right stone with mild hydro. Dr. Bingham is her urologist. Her right flank pain improved but now she developed left flank pain that woke her from sleep with nausea and vomiting Onset (ago): minute(s) Radiation: flank Severity: severe Related Data Home Medications ?Medication ?Instructions ?Recorded ?Confirmed level MVI PO DAILY 09/29/23 06/22/24 Previous Rx's ?Medication ?Instructions ?Recorded clotrimazole 1 % topical cream 1 appl topical BID #45 grams 04/26/24 (Antifungal (clotrimazole)) ondansetron 4 mg disintegrating 4 mg PO Q8H PRN nausea and 06/10/24 tablet vomiting #9 tabs prednisone 20 mg tablet 20 mg PO DAILY #5 tabs 06/10/24 oxycodone 5 mg tablet 5 mg PO Q6-8H PRN severe pain 06/20/24 (scale score 7-10) #8 tabs tamsulosin 0.4 mg capsule 0.4 mg PO DAILY #14 caps 06/20/24 naproxen 500 mg tablet (Naprosyn) 500 mg PO BID #20 tabs 06/27/24 ondansetron 4 mg disintegrating 4 mg PO Q8H 4 days #12 tabs 06/27/24 tablet tamsulosin 0.4 mg capsule (Flomax) 0.4 mg PO DAILY #30 caps 06/27/24 Allergies Allergy/AdvReac Type Severity Reaction Status Date / Time No Known Allergies Allergy Verified 06/27/24 03:05 Review of Systems Review of Systems: Yes all other systems are reviewed and are negative Neurologic: Denies Sensory deficit (Neuro) PMFSH Past Medical History Medical History ULICES on CPAP Fibromyalgia DM type 2 (diabetes mellitus, type 2) Surgical History Status post sleeve gastrectomy Hx of cholecystectomy Family History Family History Mother Breast cancer Father Arthritis Diabetes Daughter Obese Scoliosis Social History Social History Are you a primary respiratory care program director to a significant other at home: No Do you presently have visiting nurse or other home services: No Alcohol intake: never Patient Tobacco Use Status: Former Tobacco user Tobacco use type: Cigarette Smoked in Last 30 Days: No Second Hand Smoke Exposure: Yes Use of substances other than those prescribed or required for medical reasons: No Advance Directives: No Advance Directives Information Provided: Yes Do you have a plan to hurt others: No Plan service: No Current occupational status: unemployed Physical Exam ED Vital Signs: Vital Signs - 24 hr 06/27/24 03:03 06/27/24 05:19 Temperature 97.6 F 98.2 F Pulse Rate 72 78 Respiratory Rate 16 16 Blood Pressure 136/85 122/76 Pulse Oximetry 100 98 Oxygen Delivery Method Room Air Room Air BMI result Body Mass Index 23.9 Const Other: Female crying in pain Nutritional Appearance: average body habitus Orientation/consciousness: oriented to person and patient oriented x3 Limitations: no limitations HENMT Head: Yes normal to inspection Ears: external ears normal General nose exam: Normal external nose present Mouth: Normal oral and palatal mucosa present and oropharynx normal Throat: Yes posterior oropharynx normal Eyes General: appearance normal, both eyes and all related structures Neck Neck: Yes normal visual inspection Chest Chest palpation & inspection: normal inspection of the chest Resp Auscultation: clear to auscultation bilaterally Cardio Jugular venous distension: no JVD Rate: regular rate Rhythm: regular rhythm Heart sounds: S1 normal heart sound present and S2 normal heart sound present GI Inspection: Yes normal to inspection Palpation (GI): Soft to palpation, nontender and No hepatosplenomegaly present Auscultation: normal bowel sounds Back/Spine/Pelvis Other: Left CVAT Skin General skin exam: no rashes or lesions noted Neuro General: oriented to person and patient oriented x3 Cranial nerves: Yes CN's II-XII intact bilaterally Motor exam (neuro): 5/5 motor strength present throughout Sensory Exam: No Sensory deficit (Neuro) Extrem General: Yes normal to inspection Psych Appearance: grossly normal Course Reevaluation(s) Reevaluation #1: patients pain improved, resting comfortably Time: 05:28 Medications Administered Generic Name Dose Route Start Last Admin Trade Name Elina PRN Reason Stop Dose Admin Sodium Chloride 1,000 mls @ 250 mls/hr 06/27/24 03:30 06/27/24 03:43 Ns IVCONT 06/27/24 07:29 250 mls/hr .Q4H DERIC Administration Discontinued Medications Generic Name Dose Route Start Last Admin Trade Name Elina PRN Reason Stop Dose Admin Ketorolac Tromethamine 30 mg 06/27/24 03:19 06/27/24 03:34 Ketorolac Tromethamine 30 Mg/Ml Vial IVPUSH 06/27/24 03:20 30 mg ONCE ONE Administration Ondansetron HCl 4 mg 06/27/24 03:19 06/27/24 03:34 Ondansetron Hcl 4 Mg/2 Ml Vial IVPUSH 06/27/24 03:20 4 mg ONCE ONE Administration Medical Decision Making Differential Diagnosis Differential Diagnoses: The differential diagnosis associated with the presentation includes (renal colic, pyelonephritis, hydronephrosis) Admission/Observation Consideration of admission/observation: Escalation of care including admission/observation considered (upon arrival patient considered for admission) Lab Data 06/27/24 03:26 06/27/24 03:26 Labs: Lab Results 06/27/24 06/27/24 Range/Units 03:26 06:11 WBC 7.8 (4.8-10.8) X10*3/uL RBC 4.18 L (4.20-5.50) X10*6/uL Hgb 12.9 (12.0-16.0) g/dl Hct 38.6 (37.0-47.0) % MCV 92.3 (80.0-98.0) fL MCH 30.9 (27.0-33.0) pg MCHC 33.4 (31.0-35.0) g/dl RDW 12.6 (11.0-16.0) % Plt Count 234 (160-400) X10*3/uL MPV 9.3 L (9.4-12.3) fL Immature Gran % (Auto) 0.3 (0.0-0.4) % Neut % (Auto) 53.7 (45-73) % Lymph % (Auto) 36.8 (20-40) % [place] % (Auto) 6.6 (2-11) % Eos % (Auto) 1.7 (0-4) % Baso % (Auto) 0.9 (0-2) % Lymph # (Auto) 2.9 (1.2-4.9) X10*3/uL [place] # (Auto) 0.5 (0.1-1.2) X10*3/uL Eos # (Auto) 0.1 (0.0-0.4) X10*3/uL Baso # (Auto) 0.1 (0.0-0.2) X10*3/uL Abs Immat Gran (auto) 0.02 (0.00-0.03) X10*3/uL Absolute Neuts (auto) 4.2 (2.0-8.3) x10*3/uL Absolute Nucleated RBC 0.000 (0.0-0.012) X10*3/uL Nucleated RBC % (auto) 0.0 (0.0-0.2) /100WBC Sodium 143 (135-145) mmol/L Potassium 3.5 (3.3-5.1) mmol/L Chloride 107 (96-108) mmol/L Carbon Dioxide 25 (22-29) mmol/L Anion Gap 15 (12-20) BUN 18 H (9-16) mg/dL Creatinine 0.72 (0.5-1.4) mg/dL Estim Creat Clear Calc 86.5 Estimated GFR > 60 Random Glucose 149 H (60-115) mg/dL Calcium 9.4 (8.4-10.2) mg/dL Urine Color Yellow Urine Appearance Clear Urine pH 5.5 (5.0-9.0) Ur Specific [place] 1.020 (1.005-1.025) Urine Protein Negative (Neg-Trace) mg/dL Urine Glucose (UA) Negative (Negative) mg/dL Urine Ketones Negative (Negative) mg/dL Urine Blood Moderate (2+) H (Negative) Urine Nitrite Negative (Negative) Ur Leukocyte Esterase Trace H (Negative) Urine RBC 11-20 H (0-2) /HPF Urine WBC 0-5 (0-5) /HPF Ur Squamous Epith Cells 0-2 (0-2) /HPF Urine Bacteria None Seen (None Seen) Hyaline Casts 0-2 (0-2) /LPF Independent Interpretation I performed an independent interpretation of an: CT Scan (severe left hydronephrosis) External Record Review External record reviewed: Office record and Prior outpatient radiology Prescription Management I considered prescription management with: Antibiotic (no evidence of UTI) Chronic Conditions Patient?s care impacted by: Diabetes Discharge Plan Discharge Clinical Impression: Ureteral calculus, left, Hydronephrosis Patient Disposition: Home, Self-Care Instructions: Renal Colic (ED), How to Strain Your Urine (ED), Hydronephrosis (ED) Prescriptions: New naproxen [Naprosyn] 500 mg tablet 500 mg PO BID Qty: 20 0RF tamsulosin [Flomax] 0.4 mg capsule 0.4 mg PO DAILY Qty: 30 0RF ondansetron 4 mg tablet,disintegrating 4 mg PO Q8H 4 Days Qty: 12 0RF No Action clotrimazole [Antifungal (clotrimazole)] 1 % cream 1 appl topical BID Qty: 45 2RF tamsulosin 0.4 mg capsule 0.4 mg PO DAILY Qty: 14 0RF oxycodone 5 mg tablet 5 mg PO Q6-8H PRN (Reason: severe pain (scale score 7-10)) Qty: 8 0RF Rx Instructions: Partial Fill upon patient request. ondansetron 4 mg tablet,disintegrating 4 mg PO Q8H PRN (Reason: nausea and vomiting) Qty: 9 0RF prednisone 20 mg tablet 20 mg PO DAILY Qty: 5 0RF level MVI PO DAILY Referrals: Kailey Bingham MD [Physician] - 5 days Print Language: Malay
[2024-06-27 05:19] VITALS: BP 122/76; PULSE 78; RESP 16; TEMP 36.8; O2SAT 98
--- NOTE | 2024-06-27 06:01 | PC.NURSE ---
Provider with pt Pt disconnected from IV too provide UA. Plan of care ongoing.
--- NOTE | 2024-06-27 06:14 | PC.NURSE ---
UA collected and sent Plan of care ongoing.
[2024-06-27 06:19] LABS: Appearance Urine Clear; Color Urine Yellow; Glucose Urine UA Negative (Negative); Leukocyte Esterase Urine Trace (Negative); Nitrite Urine Negative (Negative); PH 5.5 (5.0-9.0); UMIC TRIGGER UACC YES; Urine Blood Moderate (2+) (Negative); Urine Ketones Negative (Negative); Urine Protein Negative (Neg-Trace)
[2024-06-27 06:29] LABS: Bacteria Urine None Seen (None Seen); Hyaline Casts Urine 0-2 /LPF (0-2); Squamous Epithelial Cell Urine 0-2 /HPF (0-2); WBC Urine 0-5 /HPF (0-5)
--- NOTE | 2024-06-27 07:17 | PC.NURSE ---
Pt. up for discharge at this time. Crying and continuing to c/o 10/10 left-sided flank pain. Jossie Swan MD aware.
[2024-06-27] MEDS: Tamsulosin HCL 0.4 MG CAPSULE PO (07:52)
[2024-06-27] MEDS: Ketorolac Tromethamine 15 MG/ML VIAL IVPUSH (07:52)
[2024-06-27 08:02] VITALS: BP 118/71; PULSE 62; RESP 18; TEMP 36.6; O2SAT 99
== END 2024-06-27 08:02 | disposition home or self-care (01) ==
PROVIDERS: Emergency Provider Emergency Medicine; PCP Nurse Practitioner
DX: N13.2 Hydronephrosis with renal and ureteral calculous obstruction (principal); R10.2 Pelvic and perineal pain; R11.2 Nausea with vomiting, unspecified; Z79.899 Other long term (current) drug therapy
CPT/HCPCS: 36415; 74176; 80048; 81001; 85025; 96361; 96374; 96375; 96376; 99284; J1885; J2405

== ENCOUNTER 2024-07-11 10:38 | Outpatient (REF) | payer OTHER, SELFPAY ==
--- NOTE | ~2024-07-11 | US_ITS ---
EXAMINATION: US RETROPERITONEAL LIMITED (RENAL ONLY) CLINICAL INFORMATION: Unspecified hydronephrosis. CT report 06/27/2024: The kidneys are normal in size, shape, and attenuation. There are scattered bilateral 1 mm renal calculi. There is mild left hydronephrosis and hydroureter to the level of a 3 mm mid left ureteric calculus. COMPARISON: CT abdomen and pelvis 06/27/2024. Ultrasound kidneys and bladder 06/23/2024. Renal ultrasound 01/26/2024. TECHNIQUE: Real-time imaging of the kidneys. FINDINGS: RIGHT KIDNEY: 9.9 x 5.4 x 4.6 cm (SAG x AP x TRV). The kidney is normal in size, contour, and echogenicity. Renal cortical thickness is normal. No calculi or focal parenchymal lesions. No hydronephrosis. LEFT KIDNEY: 12.6 x 5.0 x 4.0 cm (SAG x AP x TRV). The kidney is normal in size, contour, and echogenicity. Renal cortical thickness is normal. No focal parenchymal lesions. Multiple echogenic foci are seen consistent with calculi ranging in size from 2-4 mm. There is mild left-sided hydronephrosis. The proximal ureter is dilated measuring 1.3 cm. Appearances are similar to the 06/27/2024 CT scan although the mid ureteral calculus seen at that time is not adequately imaged if present. US/US renal BI IMPRESSION: Left-sided hydronephrosis with multiple left-sided renal calculi. I suspect that the obstructing calculus seen on the 06/27/2024 study in the ureter may still be present. Electronically signed by: Valdemar Cisneros MD 08/25/2024 12:54 PM [facility]
[2024-07-11 14:06] LABS: Appearance Urine Clear; Color Urine Dark Yellow; Glucose Urine UA Negative (Negative); Leukocyte Esterase Urine Trace (Negative); Nitrite Urine Negative (Negative); UMIC TRIGGER UA YES; Urine Blood Small (1+) (Negative); Urine Ketones Negative (Negative); Urine Protein Negative (Neg-Trace)
[2024-07-11 14:09] LABS: Bacteria Urine Trace (None Seen); Hyaline Casts Urine 0-2 /LPF (0-2); WBC Urine 0-5 /HPF (0-5)
== END 2024-07-11 10:39 | disposition home or self-care (01) ==
LOC: HO.US 10:38
PROVIDERS: PCP Nurse Practitioner; Visit Provider Urology
DX: N13.30 Unspecified hydronephrosis (principal); R10.9 Unspecified abdominal pain; N20.0 Calculus of kidney; R39.9 Unspecified symptoms and signs involving the genitourinary system; N18.30 Chronic kidney disease, stage 3 unspecified
CPT/HCPCS: 76775; 81001; 87086; 87147

== ENCOUNTER 2024-07-20 13:36 | Outpatient (REF) | payer OTHER, SELFPAY | END 2024-07-20 13:37 | disposition home or self-care (01) | LOC: HO.LNP 13:36 | PROVIDERS: PCP Nurse Practitioner; Visit Provider Urology | DX: N39.0 Urinary tract infection, site not specified (principal); B96.1 Klebsiella pneumoniae [K. pneumoniae] as the cause of diseases classified elsewhere | CPT/HCPCS: 81003; 87086; 87088; 87186; 99212 ==

== ENCOUNTER 2025-01-05 14:33 | Outpatient (REF) | payer OTHER, SELFPAY ==
--- NOTE | ~2025-01-05 | US_ITS ---
CLINICAL HISTORY: renal calculus, flank pain, hydro US Renal Comparison: 07/11/2024 Findings: Right kidney normal size and echotexture, 10.4 cm length. Left kidney normal size and echotexture, 12.5 cm length. No hydronephrosis of either kidney. Normal color Doppler IMPRESSION: 1. Normal kidneys. This document has been electronically signed by: Dav Burgess MD on 01/06/2025 08:50:50
== END 2025-01-05 14:34 | disposition home or self-care (01) ==
LOC: HO.US 14:33
PROVIDERS: Visit Provider Urology
DX: N13.30 Unspecified hydronephrosis (principal); R10.9 Unspecified abdominal pain; N20.0 Calculus of kidney
CPT/HCPCS: 76775

== ENCOUNTER → 2025-01-05 15:13 | Outpatient (BNV) | payer OTHER, SELFPAY | PROVIDERS: Visit Provider Specialist | DX: N20.0 Calculus of kidney (principal) | CPT/HCPCS: 76775 ==

== ENCOUNTER 2025-01-18 15:59 | Outpatient (AMB) | payer OTHER, SELFPAY ==
--- NOTE | 2025-01-18 15:44 | MHC.OFFVIS ---
Intake Visit Reasons: Kidney stones- 6m follow up/US Intake Note: Patient is present via telehealth for 6 month follow up/US/Kidney stones Urology MedicationTAMSULOSIN, PREDNISONE, OXYCODONE Antibiotic Allergy:NONE Blood Thinner:NONE Drainage Design Coordinator Required: No Allergies No Known Allergies Allergy (Verified 01/18/25 15:59) Medication List - Last Reconciled 01/18/25 by Kailey Bingham MD amoxicillin 500 mg PO TID 5 days clotrimazole 1% (Antifungal (clotrimazole)) 1 appl topical BID ketorolac 10 mg PO Q8H PRN 1 day [level MVI PO DAILY] naproxen (Naprosyn) 500 mg PO BID ondansetron 4 mg PO Q8H PRN ondansetron 4 mg PO Q8H 4 days oxycodone 5 mg PO Q6-8H PRN prednisone 20 mg PO DAILY 3 days pyridoxine (vitamin B6) 100 mg PO DAILY sulfamethoxazole-trimethoprim 800-160 mg (Bactrim DS) 1 tab PO BID 7 days HPI Comments Details: 01/18/25--Román is followed for kidney stones, reviewed renal ultrasound is within normal limits hydronephrosis is resolved. We will continue to monitor. Vitamin B6 100 mg daily follow-up in 1 year renal ultrasound at that time. Results: 01/05/25--kidneys WNL, no hydro 07/20/24--Román is followed for kidney stones, she was in the ED on 06/27/24 for renal colic. I have reviewed the report, mild left hydro, and a 3 mm mid ureteral stone, with bilateral renal calculi up to 3 mm. She is feeling better and I have discussed that the stones are small enough to pass. Will continue to monitor. CTAP-06/27/24-KIDNEYS AND URETERS: The kidneys are normal in size, shape, and attenuation. There are scattered bilateral 1 mm renal calculi. There is mild left hydronephrosis and hydroureter to the level of a 3 mm mid left ureteric calculus. 06/22/24--Román presents for telehealth visit-video. She was in the emergency room a week ago with right flank pain. I reviewed CTAP right hydronephrosis with a 2.5 mm ureteral stone. The patient has been straining her urine and has not passed the stone and continues to have pain. I have discussed cystoscopy ureteroscopy with laser. Will check renal ultrasound prior. 03/24/24--Román is a 48-year-old female who presents today for telehealth visit, she stated she fell and fractured her ankle and is in a cast and it is difficult to get around as well as come in to the office for a follow-up. I reviewed renal ultrasound, 01/26/2024, Normal appearance of the right kidney. 6 mm nonobstructing calculus in the lower pole of the left kidney. I discussed that the CT imaging performed in 05/30/2023 there were punctate 1-2 mm bilateral kidney stones. The patient is currently asymptomatic. We will continue to monitor kidney stones. She has not been using the potassium citrate. I have discussed adding lemon to her water. Follow-up in 1 year renal ultrasound at that time. 06/23/2023?She is followed today for?recent ED visit for left flank pain due to left ureteral stone. She has seen Kelly Santa in ER on 05/26/2023 for left sided flank pain. She has a history of kidney stones.?Patient has passed a stone and she has brought it to the office. She states that she passed the stone twice in this year. She was last seen by me on 03/26/2023 for bilateral kidney stones. The patient was educated to consume adequate amount fluids at that time. Renal US after 11 months was ordered, and she was advised to follow-up after 1 year during that time. I reviewed the CT of the abdomen/pelvis results from 05/26/2023 revealed 3 mm mid left ureteric calculus with mild mid left hydroureter and hydronephrosis. Nonobstructing 1 to 2 mm bilateral renal calculi. In review of CAT scan of the abdomen/pelvis from 11/30/2022 revealed that she had obstruction on the right side, and 1 to 2 mm right distal stone noted. During the discussion with the patient today, I reviewed the 24-hour urine collection results from 02/2023 revealed that she had low urine output, and low urine citrate. Evaluation UA? Leukocytes: negative; blood: negative. Will send the stone for analysis. Potassium citrate 15 mEq BID was ordered. Discussed to increase the fluid intake 48-64 ounces. 03/26/23-- The patient states she consumed less fluids during the time of 24-hour urine collection test. Discussed 24 hour urine results--Collected on 03/01/23-- Total volume 570 mL, Calcium 51 mg; Oxalate 13 mg, Sodium 56, Citrate 202 mg. Instructed on importance of fluid intake, Low oxalate diet, low sodium diet. Renal US--12/07/22-- Kidneys WNL, no renal calculi visualized. CTAP results reviewed-- 1-2 mm right distal ureteral stone with small bilateral renal stones. 12/23/22--The patient states the pain is improved. She has one more day of Antibiotics. I have reviewed diet plan for kidney stone prevention, (increase fluids, low oxalate, low Na)pamphlet given Evaluation today: UA blood neg. Plan - follow kidney stone prevention diet discussed, 24 hr urine, fu in 3 months. 12/18/22 She was here with her daughter with flank pain, h/o kidney stones. she was in the ED 12/07/22 due to flank pain. disc imaging- B/L small kidney stones about 2mm, no hydronephrosis. She was started on Ceftin 250 mg bid by the ED, Exam - bilateral flank tenderness on palpation. Plan disc'd on 12/18/22 was to continue Abx - increase Ceftin 500mg bid to treat possible pyelo, restart flomax, dilaudid 2 mg prn #8, fu next week, increase fluids. [facility] Medical History ULICES on CPAP Fibromyalgia DM type 2 (diabetes mellitus, type 2) Surgical History Status post sleeve gastrectomy Hx of cholecystectomy Family History Mother Breast cancer Father Arthritis Diabetes Daughter Obese Scoliosis Social History Are you a primary career consultant to a significant other at home: No Do you presently have visiting nurse or other home services: No Alcohol intake: never Patient Tobacco Use Status: Former Tobacco user Tobacco use type: Cigarette Second Hand Smoke Exposure: Yes service: No Current occupational status: unemployed Review of Systems Const All systems reviewed & are unremarkable except as noted in HPI and below Reports no additional complaints Eyes Reports no additional complaints ENT Reports no additional complaints Card Reports no additional complaints Resp Reports no additional complaints GI Reports no additional complaints Reports as per HPI Musc Reports no additional complaints Skin/Breast Reports system reviewed and no additional complaints, except as documented Neuro Reports no additional complaints Psych Reports no additional complaints Endo Reports no additional complaints Dayday/Lymph Reports no additional complaints Aller/Immun Reports no additional complaints Telehealth Telehealth Telehealth Platform: [email or web address] Location of provider rendering services: practice address Location of patient: address on file Patient Identification confirmed using: Name, : Yes Telehealth method: video Patient verbally consented to treatment: Yes Patient verbally consented to billing insurance company: Yes Patient informed of any privacy concerns related to visit: Yes Results Reviewed Results Reviewed: Date of Service: 01/05/25 Renal Comparison: 07/11/2024 Findings: Right kidney normal size and echotexture, 10.4 cm length. Left kidney normal size and echotexture, 12.5 cm length. No hydronephrosis of either kidney. Normal color Doppler IMPRESSION: 1. Normal kidneys. Date of Service: 06/27/24 CT ABDOMEN AND PELVIS WITHOUT CONTRAST CLINICAL INFORMATION: Left flank pain. COMPARISON: June 10, 2024 TECHNIQUE: Multidetector volumetric imaging was performed from the superior aspect of the liver through the pubic symphysis. Sagittal and coronal reformatted images were obtained on the technologist's workstation. This CT examination was performed using dose optimization techniques as appropriate, variously including the following: *Automated exposure control *Adjustment of mA and/or kV according to patient size (this includes techniques or standardized protocols for targeted exams where dose is matched to indication/reason for exam; i.e. extremities or head) *Use of iterative reconstruction technique DLP: 512 mGy-cm FINDINGS: LUNG BASES: The visualized lung bases are unremarkable. LIVER, GALLBLADDER, AND BILIARY TREE: The liver is normal in size, shape, and attenuation. No focal hepatic lesion or biliary ductal dilatation is present. There has been a prior cholecystectomy. PANCREAS: Unremarkable. SPLEEN: Unremarkable. ADRENAL GLANDS: Unremarkable. KIDNEYS AND URETERS: The kidneys are normal in size, shape, and attenuation. There are scattered bilateral 1 mm renal calculi. There is mild left hydronephrosis and hydroureter to the level of a 3 mm mid left ureteric calculus. BLADDER: Unremarkable. GASTROINTESTINAL TRACT: There are diverticula of the sigmoid colon without diverticulitis. The appendix is visualized and is within normal limits. ABDOMINAL WALL: No significant hernia is appreciated. LYMPH NODES: Normal. VASCULAR: Unremarkable. PELVIC VISCERA: Unremarkable. OSSEOUS STRUCTURES: Unremarkable. IMPRESSION: No significant abnormality. Date of Service: 06/10/24 CT ABDOMEN AND PELVIS WITHOUT CONTRAST CLINICAL INFORMATION: Right-sided flank pain. COMPARISON: Renal ultrasound from 01/26/2004. CT abdomen and pelvis from 05/26/2023.. TECHNIQUE: Multidetector volumetric imaging was performed from the lung bases to the pubic without contrast. Sagittal and coronal reformatted images were obtained on the technologist workstation. This CT examination was performed using dose optimization techniques as appropriate, variously including the following: *Automated exposure control. *Adjustment of mA and/or kV according to patient size (this includes techniques or standardized protocols for targeted exams where dose is matched to indication/reason for exam; i.e. extremities or head). *Use of iterative reconstruction technique. DLP: 434 mGy-cm FINDINGS: LUNG BASES: Minimal bilateral dependent atelectasis. Otherwise, no abnormalities of the visualized lung bases. No demonstrated abnormalities of the visualized cardiac structures. ABDOMEN/PELVIS: Liver, Biliary Ducts, and Gallbladder: The unenhanced liver is normal in size and attenuation without focal hepatic lesions or biliary ductal dilatation. Changes of prior cholecystectomy. Pancreas: The pancreas is normal in appearance. Adrenal Glands: The adrenal glands are normal in appearance. Spleen: The spleen is normal in appearance. Kidneys and Ureters: The unenhanced kidneys are normal in size. Moderate right-sided hydronephrosis. There appears to be a 0.25 cm right-sided ureteral stone at the pelvic inlet (415 Hounsfield units). Multiple additional bilateral nonobstructive renal stones (up to 818 Hounsfield units). No left-sided hydronephrosis, ureterolithiasis comment or hydroureter. Urinary Bladder: The urinary bladder is partially distended without focal wall thickening. No bladder calculi are demonstrated. Gastrointestinal System: Changes of prior bariatric surgery. The small bowel is of normal caliber. Moderate sigmoid diverticulosis. Otherwise, the colon is normal in appearance without focal wall thickening or pericolonic inflammatory change. Normal appendix. Genitourinary: Redemonstrated abnormal adnexal soft tissue lesions. Intra-abdominal and Retroperitoneal Spaces: No intra-abdominal free fluid collections or gas. No mesenteric, retroperitoneal, or inguinal lymphadenopathy. VASCULATURE: Abdominal aorta is of normal contour and caliber. MUSCULOSKELETAL: Mild multilevel degenerative changes of the spine. No lytic or sclerotic osseous lesions demonstrated. No soft tissue masses demonstrated. IMPRESSION: 1. Moderate right-sided hydronephrosis. There appears to be a 0.25 cm right-sided ureteral stone at the pelvic inlet. 2. Multiple additional nonobstructive renal stones. 3. Diverticulosis without evidence of diverticulitis. Assessment & Plan Assessment & Plan (1) Bilateral kidney stones: Code(s): N20.0 - Calculus of kidney Category: Medical Plan Follow-up in 1 year with renal ultrasound, vitamin B6. Orders: Orders US renal BI Today N20.0 - Calculus of kidney Medications: New pyridoxine (vitamin B6) 100 mg PO DAILY 90 tabs 3RF Discontinued tamsulosin Discontinued Reason: Doctor's Order 0.4 mg PO DAILY 14 caps 0RF tamsulosin (Flomax) Discontinued Reason: Doctor's Order 0.4 mg PO DAILY 30 caps 2RF to pass kidney stones Coding Level of Care Code Est Pt Level 3 (53294) Diagnoses Bilateral kidney stones N20.0
== END 2025-01-18 16:30 ==
LOC: HO.HUSH 15:59
PROVIDERS: PCP Neurological Surgery; Visit Provider Urology
DX: N20.0 Calculus of kidney (principal)
CPT/HCPCS: 99213

== ENCOUNTER → 2025-01-18 15:59 | Outpatient (BNVA) | payer OTHER, SELFPAY | PROVIDERS: PCP Neurological Surgery; Visit Provider Urology | DX: N20.0 Calculus of kidney (principal) | CPT/HCPCS: 99212 ==

== ENCOUNTER 2025-03-15 14:58 | Outpatient (AMB) | payer OTHER, SELFPAY ==
--- NOTE | 2025-03-15 14:57 | MHC.OFFVISWM ---
VS Expanded 03/15/25 15:03 BP 112/70 Blood Pressure Location Rt brachial Blood Pressure Position Sitting Pulse 68 Pulse Source Pulse Oximeter Temp 97.8 F Temperature Source Temporal Artery Scan Pulse Oximetry 98 Oxygen Delivery Method Room Air Height 5 ft 2 in Weight 153 lb BMI 28.0 Body Fat % 31.7 Body Fat Mass 48.6 Fat Free Mass 104.2 Visceral Fat Rating 6.0 Body Water % 48.5 Body Water Mass 74.0 Muscle Mass/Score 99.0 Basal Metabolic Rate/Score 1,405 Intake Visit Reasons: (OV) PO LSG 05/26/22 Allergies No Known Allergies Allergy (Verified 03/15/25 15:00) HPI Comments Details: This?a?49?yo female who is s/p LSG without hiatal hernia repair on?05/26/[address] Mejia. Presents for 2 year 10 month post op visit. Weight today is 153 pounds, with a BMI of 24.7.? There has been a 47.6 pound weight loss,(initial weight 200.6 pounds) since starting the program on 03/03/22 reflecting a 23.7% total body weight loss and a weight loss of 32.6 pounds since surgery (operative weight 185.6 pounds) reflecting a 17.5% TBWL since surgery.? No complaints of nausea, emesis, or reflux. She states that she is overall doing fairly well. She is complaining of intermittent hypoglycemia and hyperglycemia. She reports that in 2022 she started semaglutide and stop this after a year, but since then she has had erratic blood sugar control. She states that she is following with endocrinology starting next week. She reports blood sugars ranging from 40-60 up to 200. She also has been taking a level and celebrate MVI Patient has not been seen in the office since May 2024. At that time, her weight was 141.6 lb with a BMI of 23.9. Present meal plan includes Celebrate 4 in 1 protein shake with 2 scoops and 2 meals without measuring her quantities Drinking 48 oz water daily Exercise routine includes: 3 x per week [employer], swim for an hour and cardio for 30-45 minutes, [facility] Medical History ULICES on CPAP Fibromyalgia DM type 2 (diabetes mellitus, type 2) Surgical History Status post sleeve gastrectomy Hx of cholecystectomy Family History Mother Breast cancer Father Arthritis Diabetes Daughter Obese Scoliosis Social History Are you a primary health care marketing manager to a significant other at home: No Do you presently have visiting nurse or other home services: No Alcohol intake: never Patient Tobacco Use Status: Former Tobacco user Tobacco use type: Cigarette Second Hand Smoke Exposure: Yes service: No Current occupational status: unemployed Physical Exam Const General: healthy appearing and no acute distress Resp Effort & Inspection: normal respiratory effort Auscultation: clear to auscultation bilaterally Cardio Rate: regular rate Rhythm: regular rhythm GI Auscultation: normal bowel sounds Extrem General: Yes normal to inspection Assessment & Plan Assessment & Plan (1) Status post sleeve gastrectomy: Code(s): Z90.3 - Acquired absence of stomach [part of] Category: Surgical Plan: Recommend changing her meal plan to include celebrate 4 in 1 1 scoop in the morning, 1 scoop mid morning, meal with 7 forks of protein and 3 forks of vegetables and for forks of carbs at lunch and again at dinner with an apple in the mid afternoon. It is recommended that she follow-up with endocrinology as she may have prolonged glycemic instability secondary to her semaglutide use. It is unclear where she was prescribed this although she states that she stopped this approximately 1 year ago. She does state that she did not have any blood sugar problems prior to the medication. We will have her return to the office for her 3 year follow-up in 2 months.
[2025-03-15 15:03] VITALS: BP 112/70; PULSE 68; TEMP 36.6; O2SAT 98; BMI 28.0
== END 2025-03-15 15:18 | disposition home or self-care (01) ==
LOC: HO.HBS 14:58
PROVIDERS: PCP Neurological Surgery; Visit Provider Physician Assistant Surgical
DX: E66.3 Overweight (principal); Z68.28 Body mass index [BMI] 28.0-28.9, adult; Z90.3 Acquired absence of stomach [part of]; Z98.84 Bariatric surgery status
CPT/HCPCS: 99213; G2211

== ENCOUNTER → 2025-03-15 14:58 | Outpatient (BNVA) | payer OTHER, SELFPAY | PROVIDERS: PCP Neurological Surgery; Visit Provider Physician Assistant Surgical | DX: E11.9 Type 2 diabetes mellitus without complications (principal); E66.9 Obesity, unspecified; Z68.28 Body mass index [BMI] 28.0-28.9, adult; Z90.49 Acquired absence of other specified parts of digestive tract; Z90.3 Acquired absence of stomach [part of] | CPT/HCPCS: 99212 ==

== ENCOUNTER 2025-06-15 12:47 | Outpatient (AMB) | payer OTHER, SELFPAY ==
--- OUTSIDE RECORDS SUMMARY | 2013-06-14 | XMS_ITS | Encounter Summary ---
Author Organization [facility] Address [address] [facility] [address] [place] [phone] Phone Care Team Providers Care Caustic Liquor Maker Name Role Phone Unavailable Primary Care Provider Unavailabl e Encounter Details Date Type Department Care Team (Late st Contact Info) Description 06/14/2013 Hospital Encounter [facility],Outside Imaging [address] [place], [place] [id number] System, Provider Not In, [facility] [address] [address] Social History Tobacco Use Types Packs/Day Years Used Date Smoking Tobacco: Former Cigarettes 0.1 10 2 011 - 2020 Smokeless Tobacco: Never Alcohol Use Standard Drinks/Week Comments Never 0 (1 standard drink = 0.6 oz pur e alcohol) Education Answer Date Recorded Are you interested in more education? Not on joselo e 02/05/2023 Are you concerned about learning? Not on file 02/05/2023 No 02/05/2023 No 02/05/2023 Digital Access Answer Date Recorded No 03/02/2023 No 03/02/2023 Reliable internet access at home? Not on file 03/02/2023 Device with a working camera? Not on file Intimate Partner Violence Answer Date R ecorded Are you denied basic needs s uch as food, clothing, or medical care? No 02/07/2025 In the past 12 months have y ou been in a relationship with a person who hurts, threatens, or tries to control you? No 02/07/2025 Are you denied basic needs s uch as food, clothing, or medical care? No 02/07/2025 In the past 12 months have y ou been in a relationship with a person who hurts, threatens, or tries to control you? 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 Wish to be (Past 1 Month) No 04/24/2022 6:16 PM EDT Sarah Jaime, RN 2. Non-Specific Active Suicidal Thoughts (Past 1 Month) No 04/24/2022 6:16 PM EDT Sarah Jaime, REUBEN 6. Suicidal Behavior (Lifetime) No 04/24/2022 6:16 PM EDT Sarah Jaime, REUBEN documented as of this encounter Plan of Treatment Upcoming Encounters Date Type Department Care Team (Late st Contact Info) Description 06/19/2025 2:00 PM EDT Office Visit [facility] [address] [place] [address] Yu Moreno [address] [place] [address], [address] [place] [address] [email or web address] 10/05/2025 10:00 AM EST Office Visit [facility] [address] [place] [address] [place] [address] Lachelle Aguilera PA-C [address] [place] [id number] documented as of this encounter Procedures Procedure Name Priority Date/Time Associated Diagnosis Comments BI MAMMOGRAM OUTSIDE (NO INTERPRETATION) Routine 06/14/2013 12:00 AM EDT documented in this encounter Results * Mammogram Outside (No Interpretation) (06/14/2013 12:00 AM EDT) Narrative SYSTEMGENERATED, DOCUMENTATION - 03/10/2019 1:37 PM EDT This study is for PACS storage only and not for interpretation. us Provider Not In System PhD IMG OUTSIDE IMAGING W /OUT INTERPRETATION Final Result documented in this encounter Visit Diagnoses Not on filedocumented in this encounter Additional Source Comments The information contained in this document represents components of the legal health record. It is not the complete legal health record.[facility]
--- OUTSIDE RECORDS SUMMARY | 2013-06-16 | XMS_ITS | Encounter Summary ---
Author Organization [facility] Address [address] 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 Not on file Not o n file documented as of this encounter Functional Status * Calculated C-SSRS Risk Score (Lifetime/Recent) Answer Date of Assessment Author No Risk Indicated 04/24/2022 6:16 PM EDT Paty Mccray RN * [place] Suicide Severity Rating Scale (Screener/Recent Self-Report) Question [...] 06/19/2025 2:00 PM EDT Office Visit [facility] [address] [place] [address] Yu Moreno [address] [place] [address], [address] [place] [address] [email or web address] 10/05/2025 10:00 AM EST Office Visit [facility] [address] [place] [address] [place] [address] Lachelle Aguilera PA-C [address] [place] [address] documented as of this encounter Procedures Procedure Name Priority Date/Time Associated Diagnosis Comments BI MAMMOGRAM OUTSIDE (NO INTERPRETATION) Routine 06/16/2013 12:00 AM EDT documented in this encounter Results * Mammogram Outside (No Interpretation) (06/16/2013 12:00 AM EDT) Narrative SYSTEMGENERATED, DOCUMENTATION - 03/10/2019 1:25 PM EDT This study is for PACS storage only and not for interpretation. us Provider Not In System PhD IMG OUTSIDE IMAGING W /OUT INTERPRETATION Final Result documented in this encounter Visit Diagnoses Not on filedocumented in this encounter Additional Source Comments The information contained in this document represents components of the legal health record. It is not the complete legal health record.[facility]
--- OUTSIDE RECORDS SUMMARY | 2025-06-15 12:58 | XMS_ITS | Encounter Summary ---
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 Not on file Not o n file documented as of this encounter Plan of Treatment Upcoming Encounters Date Type Department Care Team (Late st Contact Info) Description 06/19/2025 2:00 PM EDT Office Visit [facility] Family Medicine [address] [place] [address] [place] [address] Yu Moreno [address] [place] [address], [address] [place] [address] [email or web address] 10/05/2025 10:00 AM EST Office Visit [facility] [address] [place] [address] [place] [address] Lachelle Aguilera PA-C [address] [place] [address] documented as of this encounter Visit Diagnoses Not on filedocumented in this encounter Additional Health Concerns Assessment Noted Time PHQ-9 Depression Total Score: 25 019 4:04 PM EDT PHQ-2 Depression Total Score: 0 02/11/20 24 12:27 PM EDT documented as of this encounter Care Teams Botany Teacher Relationship Specialty Start Date End Date Yu Moreno [address] [place] [address], [address] [place] [address] PCP - General Family Medicine 02/11/24 documented as of this encounter Additional Source Comments The information contained in this document represents components of the legal health record. It is not the complete legal health record.[facility]
--- OUTSIDE RECORDS SUMMARY | 2025-06-15 12:58 | XMS_ITS | Encounter Summary ---
Author Organization [facility] Address [address] [facility] [address] [place] [address] Phone Care Team Providers Care Senior Business Broker Name Role Phone Yu Robertson MD Unavailable [phone] Kenan Aquino CNP Primary Care Provider [phone]- [phone] Yu Moreno Primary Care Provider Encounter Details Date Type Department Care Team (Late st Contact Info) Description 04/21/2023 Procedure Pass [facility] - [address] [place] [address] Social History Tobacco Use Types Packs/Day Years Used Date Smoking Tobacco: Former Cigarettes 0.3 10 2 011 - 2020 Smokeless Tobacco: Never Comments:occasonal Alcohol Use Standard Drinks/Week Comments Never 0 [...] with a working camera? 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 on file Not o n file documented as of this encounter Plan of Treatment Upcoming Encounters Date Type Department Care Team (Late st Contact Info) Description 06/19/2025 2:00 PM EDT Office Visit [facility] Family Medicine [address] [place] [address] [place] [address] Yu Moreno [address] [facility], [address] [place] [address] [email or web address] 10/05/2025 10:00 AM EST Office Visit [facility] [address] [place] [address] Lachelle Aguilera PA-C [address] [place] [address] documented as of this encounter Visit Diagnoses Not on filedocumented in this encounter Additional Health Concerns Assessment Noted Time PHQ-9 Depression Total Score: 25 019 4:04 PM EDT PHQ-2 Depression Total Score: 6 03/08/20 19 4:04 PM EDT documented as of this encounter Care Teams Senior Business Broker Relationship Specialty Start Date End Date Kenan Aquino CNP [address] [place] [address] PCP - General Family Medicine 01/18/23 02/10/24 Yu Moreno [address] [place] [address], [address] [place] [address] [email or web address] PCP - General Family Medicine 02/11/24 Yu Robertson MD [address] [place] [address], [address] [place] [address] [email or web address] Insurance Assigned Provider Family Medicine 01/27/19 02/10/24 documented as of this encounter Additional Source Comments The information contained in this document represents components of the legal health record. It is not the complete legal health record.[facility]
--- OUTSIDE RECORDS SUMMARY | 2025-06-15 12:58 | XMS_ITS | Encounter Summary ---
Author Organization [facility] Address [address] [employer] [facility] [address] [place] [address] Phone Care Team Providers Care Mobile Architect Name Role Phone Denae Coulter Primary Care Provide r Yu Robertson MD Unavailable [phone] Jennifer Stockton MD Primary Care Provid er Kenan Aquino CNP Primary Care Provider +- [phone] Yu Moreno Primary Care Provider [phone] Encounter Details Date Type Department Care Team (Late st Contact Info) Description 03/10/2019 Ancillary Orders [facility],Outside Imaging [address] [place], [place] [id number] System, Provider Not In, [place] [address] Social History Tobacco Use Types Packs/Day Years Used Date Smoking Tobacco: Every Day Cigarettes Smokeless Tobacco: Never Comments:1 pack every 2-3 da ys Alcohol Use Standard Drinks/Week Comments Never 0 (1 standard drink = 0.6 oz pur e alcohol) Comments No Sex and Gender Information Value Date Recorded Sex Assigned at Female 09/12/2020 12:18 PM EST Legal Sex Female 2:39 PM EDT Gender Identity Female 09/12/2020 12:18 PM EST Sexual Orientation Not on file 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 Not on file Not o n file documented as of this encounter Plan of Treatment Upcoming Encounters Date Type Department Care Team (Late st Contact Info) Description 06/19/2025 2:00 PM EDT Office Visit [facility] [address] [place] [address] [place] [address] Yu Moreno [address] [facility], [address] [place] [address] [email or web address] 10/05/2025 10:00 AM EST Office Visit [facility] [address] [place] [address] Lachelle Aguilera PA-C [address] [place] [address] documented as of this encounter Results * Mammogram Outside (No [...] documented as of this encounter Care Teams Mobile Architect Relationship Specialty Start Date End Date Denae Coulter PA [address] [place] [address] [email or web address] PCP - General 01/27/19 03/12/22 Jennifer Stockton MD [address] [place] [address] [address] [place] [address] [email or web address] PCP - General Family Medicine 03/13/22 01/17/23 Kenan Aquino CNP [address] [place] [address] [place] [address] [email or web address] PCP - General Family Medicine 01/18/23 02/10/24 Yu Moreno [address] [place] [address], [address] [place] [address] PCP - General Family Medicine 02/11/24 Yu Robertson MD [address] [place] [address], [address] [place] [address] Insurance Assigned Provider Family Medicine 01/27/19 02/10/24 documented as of this encounter Additional Source Comments The information contained in this document represents components of the legal health record. It is not the complete legal health record.[facility]
--- OUTSIDE RECORDS SUMMARY | 2025-06-15 12:58 | XMS_ITS | Encounter Summary ---
Author Organization [facility] Address [address] [facility] [address] [place] [address] Phone Care Team Providers Care Flagsetter Name Role Phone KristiewiltonYu Soares Primary Care Provider Encounter Details Date Type Department Care Team (Late Contact Info) Description 11/21/2024 Procedure Pass [address] [place] [address] Social History Tobacco Use Types Packs/Day Years Used Date Smoking Tobacco: Former Cigarettes 0.1 10 2 011 - 2020 Smokeless Tobacco: Former Alcohol Use Standard Drinks/Week Comments Never 0 [...] Intimate Partner Violence Answer Date R ecorded Denied Basic Needs Not on file 02/11/2024 In the past 12 months have y ou been in a relationship with a person who hurts, threatens, or tries to control you? No 02/11/2024 Worried food would run out Not on file 02/10 In the past 12 months have y ou been in a relationship with a person who hurts, threatens, or tries to control you? 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 Not on file Not o n file documented as of this encounter Plan of Treatment Upcoming Encounters Date Type Department Care Team (Late st Contact Info) Description 06/19/2025 2:00 PM EDT Office Visit [facility] [address] [place] [address] [place] [address] Yu Moreno [address] [place] [address], [address] [place] [address] [email or web address] 10/05/2025 10:00 AM EST Office Visit [facility] [address] [place] [address] Lachelle Aguilera PA-C [address] [place] [address] documented as of this encounter Visit Diagnoses Not on filedocumented in this encounter Additional Health Concerns Assessment Noted Time PHQ-9 Depression Total Score: 25 019 4:04 PM EDT PHQ-2 Depression Total Score: 0 02/11/20 24 12:27 PM EDT documented as of this encounter Care Teams Flagsetter Relationship Specialty Start Date End Date Yu Moreno [address] [place] [address], [address] [place] [address] PCP - General Family Medicine 02/11/24 documented as of this encounter Additional Source Comments The information contained in this document represents components of the legal health record. It is not the complete legal health record.[facility]
--- OUTSIDE RECORDS SUMMARY | 2025-06-15 12:58 | XMS_ITS | Encounter Summary ---
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 file Not o n file documented as of this encounter Plan of Treatment Upcoming Encounters Date Type Department Care Team (Late st Contact Info) Description 06/19/2025 2:00 PM EDT Office Visit [facility] [address] [place] [address] [place] [address] Yu Moreno [address] [place] [address], [address] [place] [address] [email or web address] 10/05/2025 10:00 AM EST Office Visit [facility] [address] [place] [address] [place] [address] Lachelle Aguilera PA-C [address] [place] [address] documented as of this encounter Visit Diagnoses Not on filedocumented in this encounter Additional Health Concerns Assessment Noted Time PHQ-9 Depression Total Score: 25 019 4:04 PM EDT PHQ-2 Depression Total Score: 0 02/11/20 24 12:27 PM EDT documented as of this encounter Care Teams Film Projector Operator Relationship Specialty Start Date End Date Yu Moreno [address] [place] [address], [address] [place] [address] PCP - General Family Medicine 02/11/24 documented as of this encounter Additional Source Comments The information contained in this document represents components of the legal health record. It is not the complete legal health record.[facility]
--- OUTSIDE RECORDS SUMMARY | 2025-06-15 12:58 | XMS_ITS | Encounter Summary ---
Author Organization [facility] Address [address] [facility] [address] [place] [address] Phone Care Team Providers Care Enamel Dipper Name Role Phone Yu Robertson MD Unavailable [phone] Jennifer Stockton MD Primary Care Provid er Kenan Aquino CNP Primary Care Provider +- [phone] Yu Moreno Primary Care Provider Encounter Details Date Type Department Care Team (Late Contact Info) Description 09/09/2022 Procedure Pass [facility] Admitting Dept Virtual Department [address] [place] [address] Social History Tobacco Use Types Packs/Day Years Used Date Smoking Tobacco: Former Cigarettes 0.3 10 2 2020 Smokeless Tobacco: Never Comments:occasonal Alcohol Use [...] 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 file Not o n file documented as of this encounter Plan of Treatment Upcoming Encounters Date Type Department Care Team (Late Contact Info) Description 06/19/2025 2:00 PM EDT Office Visit [place] [address] [place] [address] Yu Moreno [address] [facility], [address] [place] [address] [email or web address] 10/05/2025 10:00 AM EST Office Visit [facility] [address] [place] [address] Lachelle Aguilera PA-C 22 [place] [address] documented as of this encounter Visit Diagnoses Not on filedocumented in this encounter Additional Health Concerns Assessment Noted Time PHQ-9 Depression Total Score: 25 019 4:04 PM EDT PHQ-2 Depression Total Score: 6 03/08/20 19 4:04 PM EDT documented as of this encounter Care Teams Enamel Dipper Relationship Specialty Start Date End Date Jennifer Stockton MD [address] [place] [address] [address] [place] [address] [email or web address] PCP - General Family Medicine 03/13/22 01/17/23 Kenan Aquino CNP [address] [place] [address] PCP - General Family Medicine 01/18/23 02/10/24 Yu Moreno [address] [place] [address], [address] [place] [address] PCP - General Family Medicine 02/11/24 Yu Robertson MD [address] [place] [address], [address] [place] [address] [phone] ([email or web address]) [email or web address] Insurance Assigned Provider Family Medicine 01/27/19 02/10/24 documented as of this encounter Additional Source Comments The information contained in this document represents components of the legal health record. It is not the complete legal health record.[facility]
--- OUTSIDE RECORDS SUMMARY | 2025-06-15 12:58 | XMS_ITS | Encounter Summary ---
Author Organization [facility] Address [address] [place] [address] Phone Care Team Providers Care Perinatal Coordinator Name Role Phone Yu Robertson MD Unavailable [phone] Jennifer Stockton MD Primary Care Provid er Kenan Aquino CNP Primary Care Provider + [phone] Yu Moreno Primary Care Provider [phone] Encounter Details Date Type Department Care Team (Late st Contact Info) Description 04/23/2022 Procedure Pass [facility], [facility] Scan - [address] [address] Social History Tobacco Use Types Packs/Day Years [...] 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 Wish to be (Past 1 Month) No 04/24/2022 6:16 PM EDT Sarah Jaime, REUBEN 2. Non-Specific Active Suicidal Thoughts (Past 1 Month) No 04/24/2022 6:16 PM EDT Sarah Jaime, REUBEN 6. Suicidal Behavior (Lifetime) No 04/24/2022 6:16 PM EDT Sarah Jaime RN documented as of this encounter Plan of Treatment Upcoming Encounters Date Type Department Care Team (Late st Contact Info) Description 06/19/2025 2:00 PM EDT Office Visit [facility] [address] [place] [address] Yu Moreno [address] [place] [address], [address] [place] [address] [email or web address] 10/05/2025 10:00 AM EST Office Visit [facility] [address] [place] [address] Lachelle Aguilera PA-C [address] [place] [address] [email or web address] documented as of this encounter Visit Diagnoses Not on filedocumented in this encounter Additional Health Concerns Assessment Noted Time PHQ-9 Depression Total Score: 25 019 4:04 PM EDT PHQ-2 Depression Total Score: 6 03/08/20 19 4:04 PM EDT documented as of this encounter Care Teams Perinatal Coordinator Relationship Specialty Start Date End Date Jennifer Stockton MD [address] [place] [address] [place] [address] [email or web address] PCP - General Family Medicine 03/13/22 01/17/23 Kenan Aquino, HOSPITAL TRAY SERVICE WORKER [address] [place] [address] [place] [address] PCP - General Family Medicine 01/18/23 02/10/24 Yu Moreno [address] [place] [address], [address] [place] [address] PCP - General Family Medicine 02/11/24 Yu Robertson MD [address] [place] [address], [address] [place] [address] Insurance Assigned Provider Family Medicine 01/27/19 02/10/24 documented as of this encounter Additional Source Comments The information contained in this document represents components of the legal health record. It is not the complete legal health record.[facility]
--- OUTSIDE RECORDS SUMMARY | 2025-06-15 12:58 | XMS_ITS | Encounter Summary ---
Author Organization [facility] Address [address] [facility] [address] [place] [address] Phone Care Team Providers Care Dental Equipment Mechanic Name Role Phone Denae Coulter Primary Care Provide r Yu Robertson MD Unavailable [phone] Jennifer Stockton MD Primary Care Provid er Kenan Aquino CNP Primary Care Provider +- [phone] Yu Moreno Primary Care Provider [phone] Encounter Details Date Type Department Care Team (Late st Contact Info) Description 11/08/2020 Procedure Pass [facility], [address] [address] Social History Tobacco Use Types Packs/Day Years Used Date Smoking Tobacco: Former Cigarettes 0.3 10 Smokeless Tobacco: Never Comments:occasonal Alcohol Use Standard [...] 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 n file documented as of this encounter Plan of Treatment Upcoming Encounters Date Type Department Care Team (Late st Contact Info) Description 06/19/2025 2:00 PM EDT Office Visit [facility] [address] [place] [address] Yu Moreno [address] [facility], [address] [place] [address] [email or web address] 10/05/2025 10:00 AM EST Office Visit [facility] [address] [place] [address] Lachelle Aguilera PA-C [address] [place] [address] [email or web address] documented as of this encounter Visit Diagnoses Not on filedocumented in this encounter Additional Health Concerns Assessment Noted Time PHQ-9 Depression Total Score: 25 019 4:04 PM EDT PHQ-2 Depression Total Score: 6 03/08/20 19 4:04 PM EDT documented as of this encounter Care Teams Dental Equipment Mechanic Relationship Specialty Start Date End Date Denae Coulter PA [address] [place] [address] [email or web address] PCP - General 01/27/19 03/12/22 Jennifer Stockton MD [address] [place] [address] [place] [address] [email or web address] PCP - General Family Medicine 03/13/22 01/17/23 Kenan Aquino, FAVIO [address] [place] [address] PCP - General Family Medicine 01/18/23 02/10/24 Yu Moreno [address] [place] [address], [address] [place] [address] PCP - General Family Medicine 02/11/24 Yu Robertson MD [address] [facility], [address] [place] [address] Insurance Assigned Provider Family Medicine 01/27/19 02/10/24 documented as of this encounter Additional Source Comments The information contained in this document represents components of the legal health record. It is not the complete legal health record.[facility]
--- OUTSIDE RECORDS SUMMARY | 2025-06-15 12:58 | XMS_ITS | Clinical Summary ---
Author Organization [facility] Address [address] [facility] [place] [phone] Phone Care Team Providers Care Hotel Dining Room Cashier Name Role Phone MalgorzataJoyceYu Primary Care Provider Allergies No known active allergies Medications therapeutic multivitamin tablet Take 1 tablet by mouth daily. Active colestipol (COLESTID) 1 gram tablet Take 1 g by mouth 2 (two) times a day. 11/30/2024 Active Active Problems Problem Noted Date Diagnosed Date Preoperative clearance 05/04/2025 Assessment & Plan (05/04/2025 9:55 AM EDT): Clearance: Patient is for a low risk for a medium risk procedure. Patient has had episodes of low blood sugar related to possible dumping syndrome vs other GI issue. She has learned how to control extreme fluctuations with avoid simple carbohydrates. Patient is medically cleared for this procedure. Hypoglycemia 02/02/2025 Assessment & Plan (04/03/2025 11:11 AM EDT): Patient's glucose control is very good based upon the office provided Dexcom G6 professional CGM download. Her average glucose reading is 116, time in range is 95%, time high is 5%. She had one episode of symptomatic hypoglycemia throughout the study. She went low after having a dumping event due to something to she ate. She did not have any more episodes of hypoglycemia. She had a couple highs some were due to stress and others due to dietary intake. She questions should she restart ozempic. Discussed that she does not have diabetes so she should not restart the ozempic. She is planning to use the dexcom Stelo to help monitor her glucose levels. She will call if she has any concerns regarding her glucose levels. Will recheck her levels in 6 months to ensure she is not slowly developing pre-diabetes again. Assessment & Plan (03/22/2025 3:00 PM EDT): She was diagnosed with pre-diabetes in 2022 but this resolved after she had gastric sleeve surgery in the same year. In February of 2024 she had an episode of severe hypoglycemia, where her glucose level dropped to 40 and she fell and broke her left ankle. She had another episode of hypoglycemia in the same year without a known cause. After the lows she stopped used the semaglutide. She had remained off of it until a couple weeks ago when she started having some high glucose levels but also low glucose levels. Reviewed how to prevent and treat hypoglycemia. Reviewed how to balance her diet with small frequent small meals that are combined protein and carbohydrate. Placed an office provided dexcom G6 professional CGM to monitor her glucose levels for the next 10 days . Placed the dexcom G6 pro sensor to the patient's upper left arm No bleeding or redness at the injection site. Reviewed care of the sensor and transmitter. Reviewed that if the sensor falls off within 3 days to call the office and another will be placed. If the sensor falls off after that period to bring in the sensor and transmitter in a zip lock bag and we will download the data that is available on the sensor at that time. Helped the patient download the dexcom G6 vanessa to their phone to be able to view the glucose levels live time during this trial. Alarm alerts were set for low at 70 and highs at 200. She will call if she has any issues managing her glucose levels. She will enter notes into the vanessa to review when she is feeling low or if she is high. Will determine the need of any medication or dietary changes at that time. I have established what should be a long-term, longitudinal relationship with this patient, overseeing care of hypoglycemia. This care relationship has signficantly influenced my decision making and treatment plans during today's encounter. Assessment & Plan (02/02/2025 5:40 PM EDT): Not on any glucose lowering medications. My best guess is that given patient's dumping syndrome she is not absorbing her food well resulting in frequent low blood sugars. Blood sugar in the office today was 110. It has been a year since her last A1c so we will get that, CMP, insulin level. Encouraged patient to keep sources of simple glucose available and to eat regularly and enough to keep up sugars. Slow transfers between lying/sitting/standing. Follow up in 1 month. Class 2 obesity 03/09/2024 History of syncope 03/09/2024 Assessment & Plan (03/09/2024 10:13 AM EDT): Unclear etiology- hypoglycemia 2/2 semaglutide, dehydration. Some concern for cardiac etiology given no presyncopal episodes. Will get ECHO, have patient follow up with prescribing doctor in [place] for dose confirmation. Patient reports taking 45mL of ozempic. I'm concerned about what she is actually taking because this seems like an enormous dose. Will have her discontinue for now until we can figure this out. 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 Eating every 2 hours and making healthier choices- avoid simple carbs have improved the lows she was having. Her last A1C was 5.3 but she is having highs to the 200s which is concerning for diabetes. I'm wondering if the lows are falsely depressing her A1C. She is seeing endocrinology tomorrow so will hold off starting any medication but she may treatment for diabetes. Assessment & Plan (03/06/2025 6:29 PM EDT): Symptoms are quite consistent with late dumping syndrome. She has not followed up with her bariatric surgeon in about 8 months and I encouraged her to do this as she would likely have access to a dietitian through their office. She has been eating 3 meals a day and I encouraged her to switch to eating every 2 hours, high protein, high fiber meals and to avoid making carbs. She will try this and we will follow-up in 2 weeks. Assessment & Plan (03/09/2024 8:59 AM EDT): History of gastric sleeve with significant weight loss. Patient does report chronic diarrhea with almost everything she eats. Is worried about dumping syndrome. Has not reached out to her surgeon to discuss this which I encouraged her to do. Has also not had labs in quite some time to monitor for vitamin deficiency. Will order th these at this time. Fatigue 02/11/2024 Assessment & Plan (03/20/2025 11:07 AM EDT): Would like vitamins checked. Assessment & Plan (02/11/2024 5:56 PM EDT): Patient does report feeling tired all of the time. I do wonder if this is possibly 2/2 some vitamin deficiencies and she is eating very little, mostly protein and has diarrhea with almost every meal. Will get blood work and follow-up at next visit. Fatty liver 04/16/2022 Assessment & Plan (02/11/2024 1:16 PM EDT): Previously elevated LFTs, liver US showed fatty liver. Likely resolved with weight loss surgery. Will get CMP. Fibromyalgia 02/05/2022 Assessment & Plan (02/11/2024 1:11 PM EDT): Does have pain associated with this but tries to avoid medication as much as possible. Tries to exercise and wants to participate in therapy. Pre-diabetes 09/22/2020 Assessment & Plan (02/11/2024 5:55 PM EDT): Likely resolved with gastric sleeve. Will get A1c prior to new patient visit. Assessment & Plan (02/25/2022 4:17 PM EDT): Recheck A1C. Continues on metformin 1000mg daily Assessment & Plan (11/11/2020 11:42 AM EST): Congratulated her on 10 pound weight loss in the past month. She is safely following an intermittent fasting diet, we reviewed importance of staying well hydrated. -will plan to recheck A1C in 3-6 months Anxiety 09/22/2020 Assessment & Plan (02/11/2024 1:09 PM EDT): GAD7 was negative. Would like to see a therapist. Has been on Klonipin prn in the past but does not want to use this. Assessment & Plan (02/25/2022 4:17 PM EDT): Stable. Using klonopin sparingly and would like to avoid SSRI/SNRI if possible as she is trying to lose weight -masspat checked -will refill klonopin for prn use -encouraged to continue monitoring and may discuss starting medication if anxiety is uncontrolled and she agrees with plan Assessment & Plan (11/11/2020 11:43 AM EST): Stable. Feels she is managing ok and is feeling better since she started losing weight actually. Using klonopin sparingly and would like to avoid SSRI/SNRI if possible as she is just starting to lose weight -masspat checked -will refill klonopin for prn use -encouraged to continue monitoring and may discuss starting medication if anxiety is uncontrolled and she agrees with plan Resolved Problems Problem Noted Date Diagnosed Date Resolved Date S/P laparoscopic cholecystectomy 05/31/2022 02/11/2024 S/P laparoscopic sleeve gastrectomy 05/31/2022 02/11/2024 Overview (05/31/2022): 05/2022 [facility] Status post repair of paraes ophageal diaphragmatic hernia 05/31/2022 02/11/2024 Overview (05/31/2022): 05/2022 [facility] Colon cancer screening 04/13/202202/10 Generalized abdominal pain 04/13/2022 0 02/11/2024 Nausea and vomiting 04/13/2022 02/11/20 24 Fibroids 04/10/2022 02/11/2024 Assessment & Plan (04/10/2022 12:25 PM EDT): The natural history of fibroids was reviewed with the patient. If feels bigger on exam today than described on previous films. This will be evaluated at the time of her ultrasound being ordered for pelvic pain. Urinary frequency 03/19/2022 02/11/2024 Perimenopausal 02/25/2022 02/11/2024 Assessment & Plan (02/25/2022 4:21 PM EDT): Discussed abnormal bleeding and hot flashes likely 2/2 perimenopause. Will check labs for thyroid. Plantar fasciitis of right foot 02/25/2022 02/11/2024 Overview (05/04/2022): rec extension splint, and PT. Assessment & Plan (02/25/2022 4:20 PM EDT): Discussed importance of stretching and warming up the foot especially in the morning. Interested in starting PT for this as well -[place] refer [place] [facility] [place]. follow up if no improvement and could refer to podiatry Class 2 obesity due to exces s calories without serious comorbidity with body mass index (BMI) of 36.0 to 36.9 in adult 02/05/202209/2023 Assessment & Plan (02/25/2022 4:15 PM EDT): She is interested in bariatric surgery consult. She is scheduled with [facility] but states this is not for a while. -discussed obtaining labs to eval for presence of pre-diabetes vs diabetes. She continues on metformin 1000mg bid. May be candidate for starting medication such as semaglutide (wegovy) for weight loss -will see if Jenelle has any sooner availability Polyarthralgia 12/17/2019 02/11/2024 Assessment & Plan (12/17/2019 3:10 PM EDT): W/u with rheumatology last year, not felt to be autoimmune/inflammatory -will order labs including TSH -refer to physical therapy at the [facility] in [place]. I do think this could be very helpful for her, especially if there is component of fibromyalgia as well. -resume flexeril 10mg po whs which she does find effective -start cymbalta 30mg once daily. Spent 5 min reviewing potential side effects. Will need to monitor mood closely given questionable bipolar diagnosis. -follow up in 4 weeks for recheck. 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 Pain in that area would not be expected to need antibx or antifungals Vulvar itching 12/15/2019 02/11/2024 Assessment & Plan (12/15/2019 2:04 PM EST): No signs of infection ULICES on CPAP 03/19/2019 02/11/2024 Overview (02/05/2022): [facility] Assessment & Plan (02/25/2022 4:14 PM EDT): Recently diagnosed through sleep med services of [facility]. waiting on CPAP through that office Pain in both hands 03/14/2019 4 Chronic pain of both shoulders 03/14/2019 02/11/2024 Assessment & Plan (11/11/2020 11:44 AM EST): R>L. Had intended to start PT but due to pandemic was unable. Will send new referral for PT at the [facility] near her home. -plan to follow up in 4-6 weeks if no improvement Encounters Date Type Department Care Team Description 05/04/2025 9:30 AM EDT Office Visit [facility] Medicine [address] [place] [address] Yu Moreno Preoperative clearance 05/02/2025 Procedure Pass [facility] Endoscopy Admitting Dept Virtual Department [address] [place] [address] 05/02/2025 Hospital Encounter [facility] Endoscopy Admitting Dept Virtual Department [address] [place] [address] Naomi Degroot MD 04/04/2025 8:42 AM EDT - 04/04/2025 11:59 PM EDT Hospital Encounter [facility] [place], Nuclear Medicine - [facility] [address] [place] [address] Anupama Alston NP Discharge Disposition: Home or Self Care 04/03/2025 10:40 AM EDT Office Visit [facility] [address] [place] [address] Lachelle Aguilera PA-C Hypoglycemia (Primary Dx) 03/26/2025 Telephone CD Pulmonary, Allergy and Critical Care Medicine [address] [place] [id number] Dayna Gonzalez nurse call 03/21/2025 3:30 PM EDT Office Visit [facility] [address] [place] [address] [place] [address] Lachelle Aguilera PA-C Hypoglycemia (Primary Dx) 03/20/2025 11:22 AM EDT - 03/20/2025 11:59 PM EDT Hospital Encounter [facility] Laboratory [address] [place] [address] Yu Moreno Discharge Disposition: Home or Self Care 03/20/2025 10:45 AM EDT Office Visit [address] [place] [address] Yu Moreno H/O gastric sleeve; Fatigue, unspecified type; Vitamin D deficiency, unspecified from Last 3 Months Immunizations Immunization Administration Dates Next Due INFLUENZA, SPLIT VIRUS, TRIVALENT PF 07/05/2014 Tdap 07/10/2014,12/26/2007 Family History Medical History Relation Comments No Known Problems Brother 1 Osteoporosis Brother 2 Scoliosis Daughter Arthritis Father Breast cancer Maternal Aunt done well No Known Problems Maternal Grandfather Diabetes Maternal Grandmother Breast cancer Mother done well. No Known Problems Paternal Grandfather Alzheimer's disease Paternal Grandmother No Known Problems Sister No Known Problems Son 1 No Known Problems Son 2 Relation Status Comments Brother 1 Alive Brother 2 Alive Daughter Alive Father Alive Maternal Aunt Maternal Grandfather Maternal Grandmother Mother Alive Paternal Grandfather Paternal Grandmother Sister Alive Son 1 Alive Son 2 Alive Social History Tobacco Use Types Packs/Day Years Used Date Smoking Tobacco: Former Cigarettes 0.1 10 2 011 2020 Smokeless Tobacco: Never Tobacco Cessation:Counseling Given: Not Answered Alcohol Use Standard Drinks/Week Comments Never 0 [...] 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 Not on file Not o n file Last Filed Vital Signs Vital Sign Reading Time Taken Comments Blood Pressure 96/60 05/04/2025 9:14 AM EDT Pulse 67 05/04/2025 9:14 AM EDT Temperature 36.1 C (97 F) 05/04/2025 9:14 AM EDT Respiratory Rate 18 03/06/2025 10:36 AM EDT Oxygen Saturation 96% 05/04/2025 9:14 AM EDT Inhaled Oxygen Concentration - - Weight 69.6 kg (153 lb 6.4 oz) 05/04/2025 9:14 AM EDT Height 160 cm (5' 3 ) 02/01/2025 1:26 PM EDT Body Mass Index 27.17 02/01/2025 1:26 PM EDT Plan of Treatment Upcoming Encounters Date Type Department Care Team (Late st Contact Info) Description 06/19/2025 2:00 PM EDT Office Visit [facility] Family Medicine [address] [place] [address] [place] [address] Yu Moreno [address] [facility] [place] [address] [email or web address] 10/05/2025 10:00 AM EST Office Visit [facility] [address] [place] [address] [place] [address] Lachelle Aguilera PA-C [address] [place] [id number] Health Maintenance Due Date Last Done Comments COLOGUARD 2018 FIT TEST 2018 FOBT 2018 SIGMOIDOSCOPY 2018 VIRTUAL COLONOSCOPY 2018 PNEUMOCOCCAL VACCINES (50+ years) (1 of 1 - PCV) 2023 ZOSTER VACCINES (1 of 2) 2023 Adult Td,Tdap Booster 07/10/2024 07/10/2014, 008 DEPRESSION SCREENING 02/10/2025 02/11/2024, 03/08/20 19 INFLUENZA VACCINE (#1) 2025 07/05/2014 COVID-19 VACCINE (3 - season) 2025 07/15/2021, 06/15/2021 SMOKING Hx and SMOKELESS TOBACCO SCREENING 05/04/2026 05/04/2025 MAMMOGRAM 11/22/2026 11/22/2024, 08/0 04/2023, 05/21/2021, Additional history exists SCREENING FOR DIABETES 02/03/2028 02/02/2025, 2024 PAP SMEAR 04/21/2028 04/21/2023, 04/30/2015 LIPID PANEL 02/21/2029 02/22/2024, 02/08, 09/11/2020 COLONOSCOPY 02/07/2035 02/07/2025 COLORECTAL CANCER SCREENING 02/07/2035 HEPATITIS C SCREENING Completed 02/22/2024 HIV ONE-TIME SCREENING (18-65 YEARS) Completed 02/22/2024 HEPATITIS A VACCINES Aged Out No long er eligible based on patient's age to complete this topic HIB VACCINES Aged Out No longer eligi ble based on patient's age to complete this topic MENINGOCOCCAL VACCINES (ACWY) Aged Out No longer eligible based on patient's age to complete this topic MENINGOCOCCAL VACCINES (B) Aged Out N o longer eligible based on patient's age to complete this topic Medical Devices Not on file Procedures Procedure Name Priority Date/Time Associated Diagnosis Comments NM GASTRIC EMPTYING SOLID PHASE Routine 04/04/2025 1:31 PM EDT Generalized abdominal pain Vomiting without nausea, unspecified vomiting type Diarrhea, unspecified type Nausea 25-OH VITAMIN D Routine 03/20/2025 11:35 AM EDT Vitamin D deficiency, unspecified FERRITIN Routine 03/20/2025 11:35 AM EDT Fatigue, unspecified type IRON AND IRON BINDING CAPACITY Routine 03/20/2025 11:35 AM EDT Fatigue, unspecified type VITAMIN B12 Routine 03/20/2025 11:35 AM EDT Fatigue, unspecified type ENDOSCOPY, COLON 02/07/2025 11:1 6 AM EDT BI MAMMOGRAM SCREENING WITH TOMOSYNTHESIS WITH CAD (BILATERAL) Routine 11/22/2024 2:52 PM EST Breast screening LIPID PANEL Routine 02/22/2024 9:03 AM EDT Fatty liver HEPATITIS C ANTIBODY, QUALITATIVE Routine 02/22/2024 9:03 AM EDT Need for hepatitis C screening test PAP TEST Routine 04/21/2023 12:00 AM EDT from Last 3 Months or Most Recently Relevant to Health Maintenance Results * NM GASTRIC EMPTYING SOLID PHASE (04/04/2025 1:31 PM EDT) Anatomical Region Laterality Modality Abdomen, Pelvis Nuclear Medicine 04/04/2025 1:58 PM EDT Impressions 04/04/2025 4:13 PM EDT Gastric emptying study within normal limits. ATTESTATION: I, Isabelle Rivers as teaching physician, have reviewed the images for this case and if necessary edited the report originally created by Jamal Downing. Narrative 04/04/2025 4:13 PM EDT NM GASTRIC EMPTYING SOLID PHASE Radionuclide gastric emptying scan: COMPARISON: None available TECHNIQUE: A dose of 0.513 mCi technetium 99m sulfur colloid was given orally mixed with a standard meal. Intermittent upright imaging of the abdomen was performed immediately, and at 1 and 2 hours, and at 4 hours. 100% of the standardized meal was consumed. FINDINGS: Gastric emptying was: 1 hr: 28% 2 hrs: 59% 4 hrs: 92% According to accepted international standards using this technique, median normal values for emptying are: 31% at 1 hr, 76% at 2 hrs, and 99% at 4 hours. 5th percentile values for emptying are: 10% at 1 hr, 40% at 2 hrs, and 90% at 4 hours. These values apply for ingestion of 50% or greater of the standard meal (PMID: 15373868) and approximate the normative emptying values of [employer] (PMID: 14701578). Procedure Note Isabelle Rivers MD - 04/04/2025 NM GASTRIC EMPTYING SOLID PHASE Radionuclide gastric emptying scan: COMPARISON: None available TECHNIQUE: A dose of 0.513 mCi technetium 99m sulfur colloid was given orally mixedwith a standard meal. Intermittent upright imaging of the abdomen wasperformed immediately, and at 1 and 2 hours, and at 4 hours. 100% of thestandardized meal was consumed. FINDINGS: Gastric emptying was: 1 hr: 28% 2 hrs: 59% 4 hrs: 92% According to accepted international standards using this technique, mediannormal values for emptying are: 31% at 1 hr, 76% at 2 hrs, and 99% at 4 hours. 5th percentile values for emptying are: 10% at 1 hr, 40% at 2 hrs, and 90% at 4 hours. These values apply for ingestion of 50% or greater of the standard meal(PMID: 18805889) and approximate the normative emptying values of[facility] (PMID: [id number]). IMPRESSION: Gastric emptying study within normal limits. ATTESTATION: I, Isabelle Rivers as teaching physician, have reviewed theimages for this case and if necessary edited the report originally createdby Jamal Downing. Anupama Alston TREE TRIMMING SUPERVISOR IMG NM ABDOMEN Final Res ult * Iron and iron binding capacity (03/20/2025 11:35 AM EDT) IRON 60 30 - 160 ug/dL [facility] IRON BINDING CAPACITY 321 228 - 428 ug/dL [facility] TRANSFERRIN SATURAT. 19 15 - 50 % [facility] Blood 03/20/2025 11:3 5 AM EDT 03/20/2025 11:36 AM EDT us Yu Moreno LAB BLOOD ORDERABLES Final Result [facility] [address] [place] [address] * 25-OH vitamin D (03/20/2025 11:35 AM EDT) 25 OH VIT D (TOTAL) 33 30 - 60 ng/mL [facility] Blood 03/20/2025 11:3 5 AM EDT 03/20/2025 11:36 AM EDT [facility] LAB BLOOD ORDERABLES Final Result [address] [address] * Ferritin (03/20/2025 11:35 AM EDT) FERRITIN 45 13 - 150 ug/L [facility] Blood 03/20/2025 11:3 5 AM EDT 03/20/2025 11:36 AM EDT [facility] LAB BLOOD ORDERABLES Final Result Performing Organization Address [facility]/ZIP Co de Phone Number [address] [address] * Vitamin B12 (03/20/2025 11:35 AM EDT) VITAMIN B12 1,036 232 - 1,245 pg/mL [facility] Blood 03/20/2025 11:3 5 AM EDT 03/20/2025 11:36 AM EDT [facility] LAB BLOOD ORDERABLES Final Result Performing Organization Address City/[facility]/ZIP Co de Phone Number [address] [address] * ENDOSCOPY, COLON (02/07/2025 11:16 AM EDT) Narrative Transcriptions Naomi Degroot MD - 02/07/2025 11:16 AM EDT [facility] [place] Patient Name: Román Mackey Attending MD:: NAOMI DEGROOT MD, Procedure Date: 02/07/2025 11:16 AM Date of : 1975 Age: 49 Admit Type: Outpatient Gender: Female Room: [place] [address] Referring MD: Yu Moreno Exam Type: Colonoscopy Indications: Screening for colorectal malignant neoplasm, Thisis the patient's first colonoscopy, Chronic diarrhea Medications: Monitored Anesthesia Care Procedure: Informed consent was obtained from the patientafter discussion of the indications, limitations, alternatives, benefits, and risks of the procedure. Risks specifically discussed include but are not limited to medication reactions, missed lesions, bleeding, perforation, or the need for emergent surgery. Throughout the procedure, the patient's blood pressure, pulse, end-tidal CO2, and oxygensaturations were monitored continuously. The Olympus adult variable colonoscope [id number] #6 was introduced through the anus and advanced to the terminal ileum, with identification of theappendiceal orifice and IC valve. The colonoscopy was performed without difficulty. The patient tolerated the procedure well. The quality of the bowelpreparation was good. The terminal ileum, ileocecal valve, appendiceal orifice, and rectum werephotographed. Complications: No immediate complications. Estimated blood loss:None. Findings: The terminal ileum appeared normal. This wasbiopsied with a cold forceps for histology. Multiple diverticula were found in the sigmoidcolon. Examination of the right colon was repeated in retroflexion and again in NBI. Retroflexion wasalso performed in the rectum. Internal hemorrhoids were found duringretroflexion. The hemorrhoids were moderate. The exam was otherwise without abnormality. Biopsies for histology were taken with a coldforceps from the entire colon for evaluation of microscopic colitis. Impression: - The examined portion of the ileum was normal. Biopsied. - Diverticulosis in the sigmoid colon. - Internal hemorrhoids. - The examination was otherwise normal. - Biopsies were taken with a cold forceps from the entire colon for evaluation of microscopiccolitis. Recommendation: - Patient has a contact number available for emergencies. The signsand symptoms of potential delayed complications were discussed with the patient. Return to normal activities tomorrow. Written discharge instructions were provided to the patient. - Await pathology results. - Return to GI office as previously scheduled. Consider trial of previously recommended bile acid sequestrant medications Naomi Degroot NAOMI DEGROOT MD 02/07/2025 11:53:58 AM This report has been signed electronically. Number of Addenda: 0 Note Initiated On: 02/07/2025 11:16 AM Procedure Date: 02/07/2025 11:16:[address] [place] [address] Yu Moreno GI PROCEDURE ORDERABLES Fin al Result * BI MAMMOGRAM SCREENING WITH TOMOSYNTHESIS WITH CAD (BILATERAL) (11/22/2024 2:52 PM EST) Anatomical Region Laterality Modality Breast Left, Breast Right, Breast Bilateral Bila teral Mammography 11/23/2024 9:51 AM EST Impressions 11/23/2024 9:53 AM EST No mammographic evidence of malignancy in either breast. Annual screening mammography is recommended. BI-RADS 1 NEGATIVE The patient will be notified of the results and recommendations. Narrative 11/23/2024 9:53 AM EST BI MAMMOGRAM SCREENING WITH TOMOSYNTHESIS WITH CAD (BILATERAL) Additional patient information: Screening. COMPARISON: Comparison is made with relevant prior imaging. Breast composition: There are scattered areas of fibroglandular density. FINDINGS: No abnormal masses, suspicious calcifications, or other significant findings are identified mammographically in either breast. Procedure Note Dominga Guerra MD - 11/23/2024 BI MAMMOGRAM SCREENING WITH TOMOSYNTHESIS WITH CAD (BILATERAL) Additional patient information: Screening. COMPARISON: Comparison is made with relevant prior imaging. Breast composition: There are scattered areas of fibroglandular density. FINDINGS: No abnormal masses, suspicious calcifications, or other significantfindings are identified mammographically in either breast. IMPRESSION: No mammographic evidence of malignancy in either breast. Annual screening mammography is recommended. BI-RADS 1 NEGATIVE The patient will be notified of the results and recommendations. Yu Moreno IMG MG EXAMS Final Resul t * Hepatitis C antibody, qualitative (02/22/2024 9:03 AM EDT) HCV NON-REACTIV E NON-REACTI VE [facility] Blood 02/22/2024 9:03 AM EDT 02/22/2024 9:08 AM EDT Yu Moreno LAB BLOOD ORDERABLES Final Result [address] [address] * (ABNORMAL) Lipid panel (02/22/2024 9:03 AM EDT) HDL 73 mg/dL [facility] Comment: Interpretation <40 mg/dL: Low HDL cholesterol (major risk factor for CHD) Greater than or equal to 60 mg/dL: High HDL cholesterol ( negative risk factor for CHD) HDL - cholesterol is affected by a number of factors, e.g. smoking, excerise, hormones, sex and age. CHOLESTEROL 158 0 - 240 mg/dL [facility] TRIGLYCERIDES 55 30 - 160 mg/dL [facility] LDL 74 50 - 129 mg/dL [facility] Comment: LDL levels in terms of risk for coronary heart disease: <100 mg/dL: Optimal 100-129 mg/dL: Near or above optimal 130-159 mg/dL: Borderline high 160-189 mg/dL: High >190 mg/dL: Very High CARDIAC RISK RATIO 2.2(L) 3.3 - 4.4 C [facility] Blood 02/22/2024 9:03 AM EDT 02/22/2024 9:08 AM EDT Yu FlowerswiltonWillJoyce LAB BLOOD ORDERABLES Final Result [address] [address] * Pap Test (04/21/2023 12:00 AM EDT) 04/21/2023 04/22/2023 8:5 0 AM EDT Narrative SEE NARRATIVE - 04/26/2023 2:41 PM EDT [address] [address] Automatic Oven Operator: Kiki Green MD ELECTROLYSIS OPERATOR Cytology Report FINAL DIAGNOSIS A. PAP SMEAR (SUREPATH) CE: SPECIMEN ADEQUACY: Satisfactory for evaluation; transformation zone present. INTERPRETATION: NEGATIVE FOR INTRAEPITHELIAL LESION OR MALIGNANCY. Electronically Signed Out By: ALAN Munguia(ASCP) The Pap test is a screening test primarily for squamous cancers and precursors and has associated false-negative and false-positive results. New technologies such as liquid-based preparations may decrease but will not eliminate all false-negative results. Regular sampling and follow-up of unexplained clinical signs and symptoms are recommended to minimize false negative results. PROCEDURES/ADDENDA HPV Testing (Requested) Ordered Date: 04/22/2023 A. PAP SMEAR (SUREPATH) CE: Human Papilloma Virus Test NEGATIVE for high-risk Human Papilloma Virus types 16, 18, 45 and the Other high risk probe set (Includes 31, 33, 35, 39, 51, 52, 56, 58, 59, 66, 68) Note: Testing performed by [employer] HR-HPV analysis. Clinical correlation is advised. This HPV test was performed at [facility], [address] [place] [address]. This test has been FDA approved for SurePath cervical cytology specimens. The accuracy and precision of this test for all other specimen sources has been verified in the Cytopathology Laboratory of the [facility] and has not been cleared or approved by the U.S. Food and Drug Administration. Clinical correlation is advised. CLINICAL HISTORY Date of Last Menstrual Period: 03-22-23 Contraceptive History: IUD Other Clinical Conditions: Screening Pap SPECIMEN SOURCE A: PAP SMEAR (SUREPATH) CE Patient Name: ROMÁN MACKEY : 1975 (Age: 47) Sex: F Institution: [facility] Location: [facility] Date of Collection: 04/21/2023 Date of Reported: 04/26/2023 14:41 Results to: Chad Yen MD Chad Yen MD CYTOLOGY ORDERABLES Final Result SEE NARRATIVE from Last 3 Months or Most Recently Relevant to Health Maintenance Insurance NON NSPG PCP [employer] NON NSPG PCP [employer] WELLSENSE NON NSPG PCP [employer] WELLSENSE NON NSPG PCP S[employer] WELLSENSE NON NSPG PCP [employer] WELLSENSE NON NSPG PCP [employer] CONNECTORCARE WELLSENSE NON NSPG PCP [employer] CONNECTORCARE WELLSENSE NON NSPG PCP SIL[employer] CONNECTORCARE WELLSENSE NON NSPG PCP ERNESTINA ALEXIS [facility] Care Teams Hotel Dining Room Cashier Relationship Specialty Start Date End Date Yu Moreno [address] [place] [address], [address] [place] [address] PCP - General Family Medicine 02/11/24 Additional Source Comments The information contained in this document represents components of the legal health record. It is not the complete legal health record.[facility]
--- OUTSIDE RECORDS SUMMARY | 2025-06-15 12:58 | XMS_ITS | Encounter Summary ---
Author Organization [facility] Address [address] [place] [address] Phone Care Team Providers Care Rn Forensic Name Role Phone Yu Moreno Primary Care Provider [phone] Reason for Referral * Outpatient Procedure - Closed Specialty Diagnoses / Procedures Referred By Nehal hernandez Referred To Contact Radiology Diagnoses Generalized abdominal pain Vomiting without nausea, unspecified vomiting type Diarrhea, unspecified type Nausea Procedures NM Gastric Emptying Anupama Alston NP [address] [place] [address] Phone: tel: fax: Referral ID Status Reason Start Date Expiration Date Visits Re quested Visits Authorized [id number] Closed 03/07/2025 03/07/2026 1 1 Encounter Details Date Type Department Care Team (Latest Contact Info) Description 03/07/2025 Transcribe Orders Virtual Department 30 [place] [address] Anupama Alston NP [address] [place] [address] Generalized abdominal pain (Primary Dx); Vomiting without nausea, unspecified vomiting type; Diarrhea, unspecified type; Nausea Social History Tobacco Use Types Packs/Day Years Used Date Smoking Tobacco: Former Cigarettes 0.1 10 - 2020 Smokeless Tobacco: Never Alcohol Use [...] 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 file Not o n file documented as of this encounter Plan of Treatment Upcoming Encounters Date Type Department Care Team (Late st Contact Info) Description 06/19/2025 2:00 PM EDT Office Visit [facility] [address] [place] [address] [place] [address] Yu Moreno 22 [facility], [address] [place] [address] [email or web address] 10/05/2025 10:00 AM EST Office Visit [facility] [address] [place] [address] [place] [address] Lachelle Aguilera PA-C [address] [place] [address] [email or web address] documented as of this encounter Results * NM GASTRIC EMPTYING SOLID PHASE [...] or greater of the standard meal (PMID: 50757073) and approximate the normative emptying values of [employer] (PMID: [id number]). Procedure Note Isabelle Rivers MD - 04/04/2025 [...] 50% or greater of the standard meal(PMID: [id number]) and approximate the normative emptying values ofPhelps Health (PMID: [id number]). IMPRESSION: Gastric emptying study within normal limits. ATTESTATION: I, Isabelle Rivers as teaching physician, have reviewed theimages for this case and if necessary edited the report originally createdby Jamal Downing. Anupama Alston AUTOMATIC PILOT MECHANIC IMG NM ABDOMEN Final Res ult documented in this encounter Visit Diagnoses Diagnosis Generalized abdominal pain- Primary Abdominal pain, generalized Vomiting without nausea, unspecified vomiting type Diarrhea, unspecified type Nausea Nausea alone Generalized abdominal pain Abdominal pain, generalized Vomiting without nausea, unspecified vomiting type Diarrhea, unspecified type Nausea Nausea alone documented in this encounter Additional Health Concerns Assessment Noted Time PHQ-9 Depression Total Score: 25 019 4:04 PM EDT PHQ-2 Depression Total Score: 0 02/11/20 24 12:27 PM EDT documented as of this encounter Care Teams Rn Forensic Relationship Specialty Start Date End Date Yu Moreno [address] [place] [address], [address] [place] [address] [email or web address] PCP - General Family Medicine 02/11/24 documented as of this encounter Additional Source Comments The information contained in this document represents components of the legal health record. It is not the complete legal health record.[facility]
--- OUTSIDE RECORDS SUMMARY | 2025-06-15 12:59 | XMS_ITS | Encounter Summary ---
Author Organization [facility] Address [address] [facility] [address] [place] [address] Phone Care Team Providers Care Store Protection Specialist Name Role Phone Denae Coulter Primary Care Provide r Yu Robertson MD Unavailable [phone] Jennifer Stockton MD Primary Care Provid er Kenan Aquino CNP Primary Care Provider [phone] Yu Moreno Primary Care Provider [phone] Encounter Details Date Type Department Care Team (Late st Contact Info) Description 03/16/2019 Ancillary Orders [facility] [address] [place] [address] Ame Stewart MD [address] [facility] [place] [address] [email or web address] Screening for breast cancer Social History Tobacco Use Types Packs/Day Years [...] 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 Not o n file documented as of this encounter Plan of Treatment Upcoming Encounters Date Type Department Care Team (Late st Contact Info) Description 06/19/2025 2:00 PM EDT Office Visit [facility] [address] [place] [address] Yu Moreno 22 [facility], [address] [place] [address] [email or web address] 10/05/2025 10:00 AM EST Office Visit [facility] [address] [place] [address] Lachelle Aguilera PA-C 22 [place] [address] documented as of this encounter Results * BI MAMMOGRAM SCREENING WITH TOMOSYNTHESIS WITH CAD (BILATERAL) (03/01/2019 8:25 AM EDT) Anatomical Region Laterality Modality Breast Left, Breast Right, Breast Bilateral Bila teral Mammography 03/16/2019 8:27 AM EDT Impressions 03/16/2019 8:55 AM EDT No mammographic change indicative of malignancy. Annual screening is recommended in light of family history. BI-RADS CATEGORY: 1 - Negative. DENSITY: There are scattered fibroglandular densities. POS -CDHMAMA Edited by: Vidya Sanders on 03/16/2019 8:27 AM Narrative 03/16/2019 8:55 AM EDT Bilateral full-field digital screening mammography is obtained and read in conjunction with computer-aided detection. Tomosynthesis as well as 2-D C view imaging of both breasts in two planes also obtained. Comparison made to appears to be outside baseline and subsequent follow-up study study from from June 2013, the only available. No dominant mass, architectural distortion, worrisome asymmetry, or suspicious calcification is identified. No skin or nipple finding of concern is appreciated. us Ame Stewart MD IMG MG EXAMS Ernestina l Result documented in this encounter Visit Diagnoses Diagnosis Screening for breast cancer Breast screening, unspecified Screening for breast cancer Breast screening, unspecified documented in this encounter Additional Health Concerns Assessment Noted Time PHQ-9 Depression Total Score: 25 019 4:04 PM EDT PHQ-2 Depression Total Score: 6 03/08/20 19 4:04 PM EDT documented as of this encounter Care Teams Store Protection Specialist Relationship Specialty Start Date End Date Denae Coulter PA [address] [place] [address] [email or web address] PCP - General 01/27/19 03/12/22 Jennifer Stockton MD [address] [place] [address] [place] [address] [email or web address] PCP - General Family Medicine 03/13/22 01/17/23 Kenan Aquino CNP [address] [place] [address] [place] [address] [email or web address] PCP - General Family Medicine 01/18/23 02/10/24 Yu Moreno [address] [place] [address], [address] [address] PCP - General Family Medicine 02/11/24 Yu Robertson MD [address] [place] [address], [address] [address] Insurance Assigned Provider Family Medicine 01/27/19 02/10/24 documented as of this encounter Additional Source Comments The information contained in this document represents components of the legal health record. It is not the complete legal health record.[facility]
--- OUTSIDE RECORDS SUMMARY | 2025-06-15 12:59 | XMS_ITS | Encounter Summary ---
Author Organization [facility] Address [address] [facility] [address] [place] [address] Phone Care Team Providers Care Air Bag Stripper Name Role Phone Yu Moreno Primary Care Provider Reason for Visit * Auth/Cert (Routine) Specialty Diagnoses / Procedures Referred By Nehal hernandez Referred To Contact Diagnoses Abdominal pain, generalized Diarrhea, unspecified type Nausea Vomiting without nausea, unspecified vomiting type Abdominal pain, generalized [R10.84] Diarrhea, unspecified type [R19.7] Nausea [R11.0] Vomiting without nausea, unspecified vomiting type [R11.11] Procedures ND ESOPHAGOGASTRODUODENOSCOPY TRANSORAL DIAGNOSTIC ND EDG TRANSORAL BIOPSY SINGLE/MULTIPLE ND EGD ABLATE TUMOR POLYP/LESION W/DILATION& WIRE ESOPHAGOGASTRODUODENOSCOPY Referral ID Status Reason Start Date Expiration Date Visits Re quested Visits Authorized [id number] 1 1 Encounter Details Date Type Department Care Team (Late st Contact Info) Description 05/02/2025 Hospital Encounter [facility] Admitting Dept Virtual Department 30 [place] [address] Fab Degroot MD [address] [address] [email or web address] Social History Tobacco Use Types Packs/Day Years Used Date Smoking Tobacco: Former Cigarettes 0.1 10 2 011 2020 Smokeless Tobacco: Never Alcohol Use Standard [...] 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 Not o n file documented as of this encounter Plan of Treatment Upcoming Encounters Date Type Department Care Team (Late st Contact Info) Description 06/19/2025 2:00 PM EDT Office Visit [facility] [address] [place] [address] [place] [address] Yu Moreno 22 [facility], [address] [place] [address] [email or web address] 10/05/2025 10:00 AM EST Office Visit [facility] [address] [place] [address] [place] [address] Lachelle Aguilera PA-C 22 [place] [address] documented as of this encounter Visit Diagnoses Not on filedocumented in this encounter Additional Health Concerns Assessment Noted Time PHQ-9 Depression Total Score: 25 019 4:04 PM EDT PHQ-2 Depression Total Score: 0 02/11/20 24 12:27 PM EDT documented as of this encounter Care Teams Air Bag Stripper Relationship Specialty Start Date End Date Yu Moreno [address] [place] [address], [address] [place] [address] [email or web address] PCP - General Family Medicine 02/11/24 documented as of this encounter Additional Source Comments The information contained in this document represents components of the legal health record. It is not the complete legal health record.[facility]
--- OUTSIDE RECORDS SUMMARY | 2025-06-15 12:59 | XMS_ITS | Encounter Summary ---
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 Not on file Not o n file documented as of this encounter Plan of Treatment Upcoming Encounters Date Type Department Care Team (Late st Contact Info) Description 06/19/2025 2:00 PM EDT Office Visit [facility] [address] [place] [address] [place] [address] Yu Moreno [address] [place] [address], [address] [place] [address] [email or web address] 10/05/2025 10:00 AM EST Office Visit [facility] [address] [place] [address] [place] [address] Lachelle Aguilera PA-C [address] [place] [address] [email or web address] documented as of this encounter Visit Diagnoses Not on filedocumented in this encounter Additional Health Concerns Assessment Noted Time PHQ-9 Depression Total Score: 25 019 4:04 PM EDT PHQ-2 Depression Total Score: 0 02/11/20 24 12:27 PM EDT documented as of this encounter Care Teams Extrusion Utility Worker Relationship Specialty Start Date End Date Yu Moreno [address] [place] [address], [address] [place] [address] [email or web address] PCP - General Family Medicine 02/11/24 documented as of this encounter Additional Source Comments The information contained in this document represents components of the legal health record. It is not the complete legal health record.[facility]
--- OUTSIDE RECORDS SUMMARY | 2025-06-15 12:59 | XMS_ITS | Encounter Summary ---
Author Organization [facility] Address [address] [facility] [address] [place] [address] Phone Care Team Providers Care Benefit Authorizer Name Role Phone Denae Coulter Primary Care Provide r Yu Robertson MD Unavailable [phone] Jennifer Stockton MD Primary Care Provid er Kenan Aquino CNP Primary Care Provider [phone]- [phone] Yu Moreno Primary Care Provider [phone] Encounter Details Date Type Department Care Team (Late st Contact Info) Description 03/10/2019 Ancillary Orders [facility] Imaging [address] [place], [place] [id number] System, Provider Not In, [place] [address] Social History Tobacco Use Types Packs/Day Years [...] 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 Not o n file documented as of this encounter Plan of Treatment Upcoming Encounters Date Type Department Care Team (Late st Contact Info) Description 06/19/2025 2:00 PM EDT Office Visit [facility] [address] [place] [address] [place] [address] Yu Moreno 22 [facility], [address] [place] [address] [email or web address] 10/05/2025 10:00 AM EST Office Visit [facility] [address] [place] [address] Lachelle Aguilera PA-C 22 [place] [address] documented as of this encounter Results * [...] documented as of this encounter Care Teams Benefit Authorizer Relationship Specialty Start Date End Date Denae Coulter PA [address] [place] [address] [email or web address] PCP - General 01/27/19 03/12/22 Jennifer Stockton MD [address] [place] [address] [address] [place] [address] [email or web address] PCP - General Family Medicine 03/13/22 01/17/23 Kenan Aquino CNP [address] [place] [address] [place] [address] PCP - General Family Medicine 01/18/23 02/10/24 Yu Moreno [address] [place] [address], [address] [place] [address] PCP - General Family Medicine 02/11/24 Yu Robertson MD [address] [place] [address], [address] [place] [address] Insurance Assigned Provider Family Medicine 01/27/19 02/10/24 documented as of this encounter Additional Source Comments The information contained in this document represents components of the legal health record. It is not the complete legal health record.[facility]
--- NOTE | 2025-06-15 13:06 | MHC.OFFVISWM ---
VS Expanded 06/15/25 13:16 BP 108/74 Blood Pressure Location Rt brachial Blood Pressure Position Sitting Pulse 67 Pulse Source Pulse Oximeter Temp 95.5 F L Temperature Source Temporal Artery Scan Pulse Oximetry 97 Oxygen Delivery Method Room Air Height 5 ft 2 in Weight 153 lb 9.6 oz BMI 28.1 Body Fat % 38.5 Body Fat Mass 59.0 Fat Free Mass 94.4 Visceral Fat Rating 8.0 Body Water % 43.7 Body Water Mass 67.0 Muscle Mass/Score 89.6 Basal Metabolic Rate/Score 1,306 Intake Visit Reasons: (OV) PO LSG 05/26/22 [employer] Required: No Allergies No Known Allergies Allergy (Verified 06/15/25 13:17) Medication List - Last Reconciled 06/15/25 by MARICHUY Hernandez clotrimazole 1% (Antifungal (clotrimazole)) 1 appl topical BID colestipol 1 g PO BID [level MVI PO DAILY] HPI Comments Details: This?a?49?yo female who is s/p LSG without hiatal hernia repair on?05/26/[address] Mejia. Presents for 3 year post op visit. Weight today is 153.6 pounds, with a BMI of 28.1.? There has been a 47.6 pound weight loss,(initial weight 200.6 pounds) since starting the program on 03/03/22 reflecting a 23.7% total body weight loss and a weight loss of 32.6 pounds since surgery (operative weight 185.6 pounds) reflecting a 17.5% TBWL since surgery.? No complaints of nausea, emesis, or reflux. She also has been taking a level and celebrate MVI she is doing very well and has no complaints at this time. Satisfied with her meal plan. Present meal plan includes celebrate 4 in 1 1 scoop in the morning, 1 scoop mid morning, meal with 7 forks of protein and 3 forks of vegetables at lunch and again at dinner with an apple in the mid afternoon. Drinking 48 oz water daily Exercise routine includes: 3 x per week [employer], swim for an hour and cardio for 30-45 minutes, videos at home [employer] Any post op complications: none ULICES: never DM: never HTN: never Hyperlipidemia: never GERD:?0-5 scale ??0 = no symptoms ??1 = symptoms noticeable but not bothersome 2 =symptoms bothersome but not daily ? 3 = symptoms bothersome and daily 4 = symptoms affect daily activities 5 = symptoms are incapacitating, unable to do daily activities ? How bad is the heartburn: 0 ? Heartburn while lying down: 0 ? Heartburn when standing up: 0 ? Heartburn after meals: 0 ? Does heartburn change your diet: 0 ? Does heartburn wake you up from sleep: 0 ? Do you have difficulty swallowin ? Do you have pain with swallowin ? If you take medicine for your reflux, does this affect your daily life: 0 Satisfaction with present condition - satisfied or not satisfied: [facility] Medical History ULICES on CPAP Fibromyalgia DM type 2 (diabetes mellitus, type 2) Surgical History Status post sleeve gastrectomy Hx of cholecystectomy Family History Mother Breast cancer Father Arthritis Diabetes Daughter Obese Scoliosis Social History Are you a primary healthcare science specialist to a significant other at home: No Do you presently have visiting nurse or other home services: No Alcohol intake: never Patient Tobacco Use Status: Former Tobacco user Tobacco use type: Cigarette Second Hand Smoke Exposure: Yes service: No Current occupational status: unemployed Assessment & Plan Assessment & Plan (1) Status post sleeve gastrectomy: Code(s): Z90.3 - Acquired absence of stomach [part of] Category: Surgical Plan: Patient is doing very well from a weight loss standpoint. She has maintained a stable and healthy weight. She did not get labs done in March as we had recommended and I encouraged her to get these done. She also recently had facial cosmetic surgery which she is very happy about. We will have her return to the office in 4 months
[2025-06-15 13:16] VITALS: BP 108/74; PULSE 67; TEMP 35.3; O2SAT 97; BMI 28.1
== END 2025-06-15 13:28 | disposition home or self-care (01) ==
LOC: HO.HBS 12:48
PROVIDERS: PCP Neurological Surgery; Visit Provider Physician Assistant Surgical
DX: E66.3 Overweight (principal); Z68.28 Body mass index [BMI] 28.0-28.9, adult; Z90.3 Acquired absence of stomach [part of]; Z98.84 Bariatric surgery status
CPT/HCPCS: 99213

== ENCOUNTER → 2025-06-15 12:47 | Outpatient (BNVA) | payer OTHER, SELFPAY | PROVIDERS: PCP Neurological Surgery; Visit Provider Physician Assistant Surgical | DX: E66.9 Obesity, unspecified (principal); Z68.28 Body mass index [BMI] 28.0-28.9, adult; Z90.49 Acquired absence of other specified parts of digestive tract; Z90.3 Acquired absence of stomach [part of] | CPT/HCPCS: 99212 ==